=== PATIENT | male | born 1965 | race Caucasian/White ===

== ENCOUNTER 2017-11-19 13:19 | Observation (INO) | payer MEDICARE, SELFPAY ==
[2017-11-19] VITALS (10 sets, daily range): BP systolic 103–128; BP diastolic 50–81; PULSE 70–96; RESP 18–22; TEMP 36.6–36.9; O2SAT 92–98; BMI 32.3
--- NOTE | 2017-11-19 | CA_ITS ---
PROCEDURE: 2-D M-mode and color Doppler study INDICATIONS FOR THE TEST: Chest pain+ COPD Heart Murmur Tobacco Smoking Palpitations+ Fatigue Syncope Edema+ Hypertension+Diabetes Mellitus Rheumatic Fever SOB+[place] Obesity Hyperlipidemia+ Family History HD Additional History afib PATIENT INFORMATION HEIGHT:72 WEIGHT: 238 GENDER: Male B/P: 138/69 2-D/M-MODE INTERPRETATION: 2-D MEASUREMENTS OBSERVED VALUES IN CMS Right Ventricular Dimension (RVDd) 2.5 Interventricular Septum (Thickness)(IVsd) 1.0 Left Ventricular Internal Dimensions(LVIDd) 4.1 Left Ventricular Posterior Wall (Thickness)(LVPWd) 0.9 Aortic Root 3.6 Aortic Cusp Separation 2.3 Left Atrial Dimensions (LAD) 3.9 2D 1. Left atrium is mildly enlarged, left ventricle is normal size, there is mild qualitative concentric left ventricular hypertrophy, visually estimated ejection fraction 45%, there is marked hypokinesis involving the inferobasal and posterobasal wall. 2. The right atrium and right ventricle are normal size and contractility. 3. The aortic valve is minimally thickened and fibrosed. 4. The mitral and tricuspid valve leaflets are minimally thickened. 5. The pulmonic valve is poorly visualized 6. No significant pericardial effusion noted. DOPPLER INTERROGATION: Doppler interrogation of the aortic, mitral and tricuspid valvular presence of moderate mitral and mild tricuspid regurgitation, tricuspid and jet velocity is insufficient for calculation of the right ventricular systolic pressure, diastolic parameters are inconclusive. CONCLUSION: 1. Mildly enlarged left atrium, normal left ventricular size, mild qualitative concentric left ventricular hypertrophy, visually estimated ejection fraction 45% with segmental wall motion abnormality described above. Diastolic parameters are inconclusive. 2. Moderate mitral and mild tricuspid regurgitation 3. No significant pericardial effusion noted.
--- NOTE | 2017-11-19 13:27 | XR_ITS ---
XR chest portable HISTORY: Chest pain ITS.REASON: cp ORDERING PHYSICIAN: Arie Chaudhair MD PATIENT AGE: 52 years COMPARISON: 09/03/2017 FINDINGS: The cardiomediastinal silhouette and pulmonary vascularity are within normal limits. The lungs are clear without infiltrates, suspicious nodules, or pleural effusions. No acute bony abnormalities. IMPRESSION: Negative chest, no acute finding
--- NOTE | 2017-11-19 13:32 | HMH.EDGENADL ---
ED Disposition Clinical Impression: New onset a-fib, Chest pain Disposition: Admitted As Inpatient Condition on Discharge: Good - Critical Care Critical Care Time: No Attestation: On , the high probability of a clinically significant, sudden or life threatening deterioration of the following system(s) required my full and direct attention, intervention and personal management. The time I documented below is in addition to time spent performing reported procedures but includes the following listed in this critical care notation. Medical Decision Making - Medical Records MR Comment: 158 cardiology is seen patient desires Nohemynox. 1449 call is out to PMD for admit Vital Signs: 11/19/17 13:20 11/19/17 13:50 Temperature 97.9 F Temperature Source Oral Pulse Rate [Right Radial] 91 H 95 H Respiratory Rate 20 Blood Pressure [Right Arm] 114/80 117/77 Blood Pressure Mean [Right Arm] 91 90 Blood Pressure Source [Right Arm] Automatic Cuff Automatic Cuff Blood Pressure Position [Right Arm] Sitting Supine 02 Sat by Pulse Oximetry 94 L 94 L Oxygen Delivery Method Room Air - Lab Data Lab Results 11/19/17 13:40: WBC 7.0, RBC 4.71, Hgb 13.5 L, Hct 40.5 L, MCV 86.0, MCH 28.7, MCHC 33.4, RDW 13.1, Plt Count 272, MPV 7.4, Neut % (Auto) 67.7, Lymph % (Auto) 21.8, [place] % (Auto) 6.6, Eos % (Auto) 3.4, Baso % (Auto) 0.3, Neut # (Auto) 4.7, Lymph # (Auto) 1.5, [place] # (Auto) 0.5, Eos # (Auto) 0.2, Baso # (Auto) 0.0 11/19/17 13:40: Sodium 141, Potassium 4.2, Chloride 108 H, Carbon Dioxide 25, Anion Gap 12.2, BUN 28 H, Creatinine 1.92 H, Estimated Creat Clear 67, Estimated GFR 37 L, Est GFR ( Amer) 44 L, Glucose 150 H, Calcium 8.2 L, Total Bilirubin 0.9, AST 18, ALT 45, Alkaline Phosphatase 127 H, Troponin I < 0.02, Total Protein 6.9, Albumin 3.4, Globulin 3.5 H, Albumin/Globulin Ratio 1.0 L 11/19/17 13:40: B-Natriuretic Peptide 107 H Result diagrams: 11/19/17 13:40 11/19/17 13:40 Orders (Tests/Meds): ED MEDICATIONS Discontinued Medications Generic Name Dose Route Start Last Admin Trade Name Lissy PRN Reason Stop Dose Admin Enoxaparin Sodium 110 mg 11/19/17 13:57 11/19/17 14:03 Lovenox 100mg/Ml Syringe SQ 11/19/17 13:58 110 mg ONCE ONE Administration Morphine Sulfate 4 mg 11/19/17 14:47 Morphine 4mg/Ml Syringe IV 11/19/17 14:48 ONCE ONE Ondansetron HCl 4 mg 11/19/17 14:47 Zofran 4mg/2ml Vial IV 11/19/17 14:48 ONCE ONE ORDERS Category Date Time Status CXR --portable [XR chest portable] Stat Exams 11/19/17 13:27 Taken PT/PTT Stat Lab 11/19/17 13:40 Received Prothrombin Time INR Stat Lab 11/19/17 13:40 Received - Radiology Data #1 Image(s): Chest Image Reviewed: Yes I reviewed the patient's radiology image Preliminary Findings: Normal/NAD - ECG Data Tracing #1 ER EKG read by myself shows atrial fibrillation with rapid ventricular response rate of 102, normal axis, no QT prolongation, nonspecific EKG - Oswaldo Inquiry Pt receiving controlled substance: No General Adult HPI - General Chief complaint: Chest Pain Stated complaint: Chest Pain Mode of Arrival: EMS Limitations: No Limitations Description of Symptoms (Recalled from ER Triage Doc. by RN): Chest Pain for a few days. Left side, radiates to shoulder, Pressure. Also endorses SOA, positional weakness and dizziness. - History of Present Illness HPI narrative: Patient states he has had left-sided chest pain pressure 2/10 radiates to left shoulder for the past 2 days on and off salinities feeling irregular heartbeat for the past 2 days states he has dyspnea on exertion over the past 2 days as well as sweating at night he states he has some nausea he denies any fevers denies any leg pain or calf pain or swelling. He denies being on blood thinners he states he has not had an arrhythmia before. - Related Data Home Medications Medication Instructions Recorded Confirmed
--- NOTE | 2017-11-19 13:35 | ED_ITS ---
ED Disposition Clinical Impression: New onset a-fib, Chest pain Disposition: Admitted As Inpatient Condition on Discharge: Good - Critical Care Critical Care Time: No Attestation: On , the high probability of a clinically significant, sudden or life threatening deterioration of the following system(s) required my full and direct attention, intervention and personal management. The time I documented below is in addition to time spent performing reported procedures but includes the following listed in this critical care notation. Medical Decision Making - Medical Records MR Comment: 158 cardiology is seen patient desires Nohemynox. 1449 call is out to PMD for admit Vital Signs: 11/19/17 13:20 11/19/17 13:50 Temperature 97.9 F Temperature Source Oral Pulse Rate [Right Radial] 91 H 95 H Respiratory Rate 20 Blood Pressure [Right Arm] 114/80 117/77 Blood Pressure Mean [Right Arm] 91 90 Blood Pressure Source [Right Arm] Automatic Cuff Automatic Cuff Blood Pressure Position [Right Arm] Sitting Supine 02 Sat by Pulse Oximetry 94 L 94 L Oxygen Delivery Method Room Air - Lab Data Lab Results 11/19/17 13:40: WBC 7.0, RBC 4.71, Hgb 13.5 L, Hct 40.5 L, MCV 86.0, MCH 28.7, MCHC 33.4, RDW 13.1, Plt Count 272, MPV 7.4, Neut % (Auto) 67.7, Lymph % (Auto) 21.8, [place] % (Auto) 6.6, Eos % (Auto) 3.4, Baso % (Auto) 0.3, Neut # (Auto) 4.7 , Lymph # (Auto) 1.5, [place] # (Auto) 0.5, Eos # (Auto) 0.2, Baso # (Auto) 0.0 11/19/17 13:40: Sodium 141, Potassium 4.2, Chloride 108 H, Carbon Dioxide 25, Anion Gap 12.2, BUN 28 H, Creatinine 1.92 H, Estimated Creat Clear 67, Estimated GFR 37 L, Est GFR ( Amer) 44 L, Glucose 150 H, Calcium 8.2 L, Total Bilirubin 0.9, AST 18, ALT 45, Alkaline Phosphatase 127 H, Troponin I < 0.02, Total Protein 6.9, Albumin 3.4, Globulin 3.5 H, Albumin/Globulin Ratio 1.0 L 11/19/17 13:40: B-Natriuretic Peptide 107 H Result diagrams: 11/19/17 13:40 11/19/17 13:40 Orders (Tests/Meds): ED MEDICATIONS Discontinued Medications Generic Name Dose Route Start Last Admin Trade Name Lissy PRN Reason Stop Dose Admin Enoxaparin Sodium 110 mg 11/19/17 13:57 11/19/17 14:03 Lovenox 100mg/Ml Syringe SQ 11/19/17 13:58 110 mg ONCE ONE Administration Morphine Sulfate 4 mg 11/19/17 14:47 Morphine 4mg/Ml Syringe IV 11/19/17 14:48 ONCE ONE Ondansetron HCl 4 mg 11/19/17 14:47 Zofran 4mg/2ml Vial IV 11/19/17 14:48 ONCE ONE ORDERS Category Date Time Status CXR --portable [XR chest portable] Stat Exams 11/19/17 13:27 Taken PT/PTT Stat Lab 11/19/17 13:40 Received Prothrombin Time INR Stat Lab 11/19/17 13:40 Received - Radiology Data #1 Image(s): Chest Image Reviewed: Yes I reviewed the patient's radiology image Preliminary Findings: Normal/NAD - ECG Data Tracing #1 ER EKG read by myself shows atrial fibrillation with rapid ventricular response rate of 102, normal axis, no QT prolongation, nonspecific EKG - Oswaldo Inquiry Pt receiving controlled substance: No General Adult HPI - General Chief complaint: Chest Pain Stated complaint: Chest Pain Mode of Arrival: EMS Limitations: No Limitations Description of Symptoms (Recalled from ER Triage Doc. by RN): Chest Pain for a few days.
[2017-11-19 13:52] LABS: Basophils % 0.3 % (0.1-2.0); Eosinophils # 0.2 K/mm3 (0.0-0.4); Eosinophils % 3.4 % (0.1-12.0); Hematocrit 40.5 % (42.0-52.0); Hemoglobin 13.5 g/dL (14.1-18.0); Lymphocytes # 1.5 K/mm3 (0.7-4.5); Lymphocytes % 21.8 K/mm3 (10-50); Mean Corpuscular HGB Conc 33.4 g/dL (31.8-35.4); Mean Corpuscular Hemoglobin 28.7 pg (27.0-31.2); Mean Platelet Volume 7.4 fl (7.4-10.4); Monocytes # 0.5 K/mm3 (0.1-1.0); Monocytes % 6.6 % (1.7-9.3); Neutrophils # 4.7 K/mm3 (1.8-7.8); Neutrophils % 67.7 % (37.0-80.0); Platelet Count 272 K/mm3 (142-424); Red Blood Count 4.71 M/mm3 (4.60-6.20); Red Cell Distribution Width 13.1 % (11.5-17.5)
[2017-11-19 14:20] LABS: Alanine Aminotransferase 45 U/L (12-78); Albumin Level 3.4 gm/dL (3.4-5.0); Alkaline Phosphatase 127 U/L (46-116); Anion Gap 12.2 mEq/L (5-15); Aspartate Amino Transferase 18 U/L (15-37); Bilirubin,Total 0.9 mg/dL (0.2-1.0); Blood Urea Nitrogen 28 mg/dL (7-18); Calcium 8.2 mg/dL (8.5-10.1); Carbon Dioxide 25 mmol/L (21.0-32.0); Chloride 108 mmol/L (98-107); Creatinine Clearance Estimated 67 mL/min (0-300); Creatinine,Serum 1.92 mg/dL (0.70-1.30); Estimated Glomerular Filt Rate 37 ml/min (>60); GFR (African American) 44 ML/MIN (>60); Globulin 3.5 gm/dl (1.3-3.2); Potassium 4.2 mmoL/L (3.5-5.1); Sodium 141 mmol/L (136-145); Total Protein,Serum 6.9 gm/dL (6.4-8.2); Troponin I < 0.02 ng/ml (0.00-0.06)
[2017-11-19 14:28] LABS: Glucose 150 mg/dL (74-106)
--- NOTE | 2017-11-19 14:45 | HMH.CNCARD ---
History of Present Illness Consult date: 11/19/17 Consult reason: atrial fibrillation Chief complaint: chest pain, SOA History of present illness: 52-year-old white male presented to the emergency department after being seen in his family doctor's office for complaint of 2 days of palpitations and fast heart rates. This has been accompanied by increasing shortness of breath and chest discomfort that is worse with taking a deep breath or moving in certain positions. Patient denies any syncope but has had some lightheadedness. Reportedly was given 500 mL of fluid in the doctor's office due to low blood pressure in the high 80s systolically. Patient is currently in the emergency department in no acute distress but does note that he is not feeling well. His heart rate is around 100 bpm. His EKG shows atrial fibrillation. Initial cardiac enzyme is pending. Of note, patient had a cardiac cath showing normal coronary arteries in September 2016. Cardiology consulted for evaluation and recommendations. [facility] History Medical History: Reports:: Hyperlipidemia, Hypertension, Palpitations Denies:: Diabetes Mellitus Type 2 - *Social History Smoking Status: Former smoker Alcohol Intake: current Alcohol Intake Frequency:: holidays/special occasions only - Psychiatric History Expresses thoughts of harming self/others: None Suicide Plan Description: No Plan Meds Home Medications Medication Instructions Recorded Confirmed Type Aspirin [Aspirin 81mg EC Tab] 81 mg PO DAILY 11/19/17 11/19/17 History Atorvastatin Calcium [Atorvastatin 40 mg PO HS 11/19/17 11/19/17 History 40mg Tab] Cetirizine HCl 10 mg PO DAILY 11/19/17 11/19/17 History Duloxetine HCl [Cymbalta] 60 mg PO DAILY 11/19/17 11/19/17 History Gabapentin [Gabapentin 300mg Cap] 300 mg PO TID 11/19/17 11/19/17 History Icosapent Ethyl [Vascepa] 2 gm PO BID 11/19/17 11/19/17 History Losartan Potassium 100 mg PO DAILY 11/19/17 11/19/17 History Meloxicam 15 mg PO DAILY 11/19/17 11/19/17 History Nadolol 40 mg PO DAILY 11/19/17 11/19/17 History Omeprazole [Omeprazole 20mg 20 mg PO DAILY 11/19/17 11/19/17 History Capsule] Ropinirole HCl 2 mg PO HS 11/19/17 11/19/17 History Tamsulosin HCl [Flomax] 0.4 mg PO DAILY 11/19/17 11/19/17 History Trazodone HCl 200 mg PO HS 11/19/17 11/19/17 History raNITIdine HCl [Ranitidine HCl] 150 mg PO BID 11/19/17 11/19/17 History Allergies Allergy/AdvReac Type Severity Reaction Status Date / Time No Known Allergies Allergy Unverified 09/25/17 15:40 Review of Systems - *Cardiovascular Reports chest pain, Reports shortness of breath, Reports shortness of breath with activity, Reports fast heart rate - *Respiratory Reports shortness of breath, Reports shortness of breath with activity - *Gastrointestinal Denies nausea Exam Vital signs and Labs for Last 24 Hours: Temp Pulse Resp BP Pulse Ox 97.9 F 95 H 20 117/77 94 L 11/19/17 13:20 11/19/17 13:50 11/19/17 13:20 11/19/17 13:50 11/19/17 13:50 Laboratory Results - last 24 hr 11/19/17 13:40: WBC 7.0, RBC 4.71, Hgb 13.5 L, Hct 40.5 L, MCV 86.0, MCH 28.7, MCHC 33.4, RDW 13.1, Plt Count 272, MPV 7.4, Neut % (Auto) 67.7, Lymph % (Auto) 21.8, [place] % (Auto) 6.6, Eos % (Auto) 3.4, Baso % (Auto) 0.3, Neut # (Auto) 4.7, Lymph # (Auto) 1.5, [place] # (Auto) 0.5, Eos # (Auto) 0.2, Baso # (Auto) 0.0 11/19/17 13:40: Sodium 141, Potassium 4.2, Chloride 108 H, Carbon Dioxide 25, Anion Gap 12.2, BUN 28 H, Creatinine 1.92 H, Estimated Creat Clear 67, Estimated GFR 37 L, Est GFR ( Amer) 44 L, Glucose 150 H, Calcium 8.2 L, Total Bilirubin 0.9, AST 18, ALT 45, Alkaline Phosphatase 127 H, Troponin I < 0.02, Total Protein 6.9, Albumin 3.4, Globulin 3.5 H, Albumin/Globulin Ratio 1.0 L 11/19/17 13:40: B-Natriuretic Peptide 107 H I & O for Last 24 hours: Intake & Output 11/17/17 11/18/17 11/19/17 11/20/17 11:59 11:59 11:59 11:59 Weight 238 lb - *Routine Neck Exam Abse
[2017-11-19 14:56] LABS: Activated Partial Thrombo Time 23.2 seconds (23.6-34.0); INR 0.94 (0.9-1.1); Prothrombin Time 10.2 seconds (9.4-11.8)
[2017-11-19 15:47] LABS: Free Thyroxine Index 2.6 ug/dL (5.93-13.13); T4 (Thyroxine) 7.1 ug/dl (4.7-13.3); Triiodothryronine (T3) Uptake 36 % (31-39)
--- NOTE | 2017-11-19 17:11 | PC.NURSE ---
Report given to SOMMER Armas on 2nd Floor.
[2017-11-19 18:17] LABS: POC Glucose,Bedside 111 mg/dL
[2017-11-19 19:34] LABS: Creatine Kinase 66 U/L (39-308); Troponin I < 0.02 ng/ml (0.00-0.06)
[2017-11-19 19:38] LABS: CKMB Relative Index 0.8 U/L (0-4.0); Creatine Kinase MB < 0.5 mg/ml (0.0-3.6)
[2017-11-20] VITALS (22 sets, daily range): BP systolic 92–122; BP diastolic 50–77; PULSE 72–99; RESP 14–20; TEMP 36.4–36.8; O2SAT 91–99
--- NOTE | 2017-11-20 | IR_ITS ---
CARDIAC CATHETERIZATION DATE OF CATHETERIZATION:11/20/2017 1:30 PM PROCEDURES: 1. Left heart catheterization 2. Left ventriculogram 3. Selective coronary angiogram INDICATION FOR TEST: 1. Unstable angina 2. Abnormal echocardiogram Informed consent was obtained prior to the procedure. COMPLICATIONS: None ESTIMATED BLOOD LOSS: Less than 10 ml. TECHNIQUE: One percent lidocaine used to anesthetize the right anterior aspect of the wrist. The right radial artery was accessed via the Seldinger technique. A 6 Wallisian sheath was placed in the right radial artery. 2.5 mg of verapamil, 800 mcg of nitroglycerin and 5000 U Heparin were given through the arterial sheath. The trap catheter was also used to perform left heart catheterization and left ventriculography. At the end of the procedure the patient was transferred to the post-op holding area in stable condition for arterial sheath removal. ANGIOGRAPHIC RESULTS: 1. The left main artery normal 2. The left anterior descending artery normal 3. The circumflex artery normal 4. The right coronary artery dominant normal 5. The ROBERTS ventriculogram reveals normal 65% 6. The left ventricular end-diastolic pressure 10 mmHg IMPRESSION: 1. Normal coronary arteries. 2. Normal ejection fraction 3. Normal left ventricular end-diastolic pressure PLAN: 1. Evaluation noncardiac chest pain
--- NOTE | 2017-11-20 03:41 | PC.NURSE ---
PATIENT HAS BEEN AWAKE FOR MOST OF SHIFT. HE HAS HAD NO C/O CHEST PAIN, HOWEVER HE DID C/O PAIN TO LOWER BACK X1 RATING IT 6/10, FOR WHICH HE RECEIVED PRN PAIN MEDICATION WHICH WAS EFFECTIVE. HE HAS HAD NO DISTRESS OR SOA AND IS ON N/C AT 2LPM PER MD ORDER. PATIENT IS CURRENTLY IN BED WATCHING TV. NO OTHER PROBLEMS NOTED AT THIS TIME. VSS. WILL CONTINUE TO MONITOR. SAFETY MEASURES IN PLACE, CALL LIGHT IN REACH.
[2017-11-20 07:00] LABS: Basophils % 0.6 % (0.1-2.0); Eosinophils # 0.4 K/mm3 (0.0-0.4); Eosinophils % 6.3 % (0.1-12.0); Hematocrit 37.5 % (42.0-52.0); Hemoglobin 12.5 g/dL (14.1-18.0); Lymphocytes # 2.3 K/mm3 (0.7-4.5); Lymphocytes % 39.1 K/mm3 (10-50); Mean Corpuscular HGB Conc 33.2 g/dL (31.8-35.4); Mean Corpuscular Hemoglobin 29.1 pg (27.0-31.2); Mean Corpuscular Volume 87.4 fl (80-94); Mean Platelet Volume 7.9 fl (7.4-10.4); Monocytes # 0.4 K/mm3 (0.1-1.0); Monocytes % 7.6 % (1.7-9.3); Neutrophils # 2.7 K/mm3 (1.8-7.8); Neutrophils % 46.3 % (37.0-80.0); Platelet Count 242 K/mm3 (142-424); Red Blood Count 4.29 M/mm3 (4.60-6.20); Red Cell Distribution Width 13.4 % (11.5-17.5); White Blood Count 5.8 K/mm3 (4.8-10.8)
[2017-11-20 07:06] LABS: Anion Gap 10.4 mEq/L (5-15); Blood Urea Nitrogen 28 mg/dL (7-18); Carbon Dioxide 29 mmol/L (21.0-32.0); Chloride 108 mmol/L (98-107); Creatinine Clearance Estimated 64 mL/min (0-300); Creatinine,Serum 2.02 mg/dL (0.70-1.30); Estimated Glomerular Filt Rate 35 ml/min (>60); GFR (African American) 42 ML/MIN (>60); Glucose 103 mg/dL (74-106); Potassium 4.4 mmoL/L (3.5-5.1); Sodium 143 mmol/L (136-145)
--- NOTE | 2017-11-20 07:31 | P.CONPHA_ITS ---
[facility] Pharmacy VTE Monitoring - Patient Demographics Admission date: 11/19/17 Report Date: 11/20/17 Time: 07:30 Allergies/Adverse Reactions: Patient Allergies No Known Allergies Allergy (Unverified 09/25/17 15:40) Height: 1.83 m Weight: 108.1 kg Patient Problems: Current Active Problems New onset atrial fibrillation (Acute) Tachycardia (Acute) Hypertensive heart disease (Acute) Hyperlipidemia (Acute) New onset a-fib (Acute) Chest pain (Acute) - VTE Risk Labs: VTE Related Lab Results Hgb 12.5 g/dL (14.1-18.0) L 11/20/17 06:40 Hct 37.5 % (42.0-52.0) L 11/20/17 06:40 Plt Count 242 K/mm3 (142-424) 11/20/17 06:40 PT 10.2 seconds (9.4-11.8) 11/19/17 13:40 INR 0.94 (0.9-1.1) 11/19/17 13:40 APTT 23.2 seconds (23.6-34.0) L 11/19/17 13:40 BUN 28 mg/dL (7-18) H 11/20/17 06:40 Creatinine 2.02 mg/dL (0.70-1.30) H 11/20/17 06:40 Estimated Creat Clear 64 mL/min (0-300) 11/20/17 06:40 Was VTE Risk Assessment Performed: Yes VTE Score: 1 VTE Risk Level: Very Low Risk Clinical Trial Participant: No - Prophylaxis VTE Prophylaxis Ordered?: Yes Types of VTE Prophylaxis: TEDS Knee High
--- NOTE | 2017-11-20 09:10 | P.PN_ITS ---
Subjective Date: 11/20/17 Time: 08:30 Principal diagnosis: A. fib Interval history: 52 yo WM in bed in NAD. Chronic left sided chest and back pain due to DDD. Worse with deep breathing or coughing. Some exertional SOA recently but has had a viral type illness over the last month. Echo shows new wall motion abnormalities with LVEF of 45%. Started sotalol last evening for new onset A. fib with history of normal coronaries in 09/2015 and normal LVEF last year. Review of Systems - *Cardiovascular Reports chest pain - *Respiratory Reports shortness of breath with activity Meds Home Medications Medication Instructions Recorded Confirmed Type Aspirin [Aspirin 81mg EC Tab] 81 mg PO DAILY 11/19/17 11/19/17 History Atorvastatin Calcium [Atorvastatin 40 mg PO HS 11/19/17 11/19/17 History 40mg Tab] Cetirizine HCl 10 mg PO DAILY 11/19/17 11/19/17 History Duloxetine HCl [Cymbalta] 60 mg PO DAILY 11/19/17 11/19/17 History Gabapentin [Gabapentin 300mg Cap] 300 mg PO TID 11/19/17 11/19/17 History Icosapent Ethyl [Vascepa] 2 gm PO BID 11/19/17 11/19/17 History Losartan Potassium 100 mg PO DAILY 11/19/17 11/19/17 History Meloxicam 15 mg PO DAILY 11/19/17 11/19/17 History Nadolol 40 mg PO DAILY 11/19/17 11/19/17 History Omeprazole [Omeprazole 20mg 20 mg PO DAILY 11/19/17 11/19/17 History Capsule] Ropinirole HCl 2 mg PO HS 11/19/17 11/19/17 History Tamsulosin HCl [Flomax] 0.4 mg PO DAILY 11/19/17 11/19/17 History Trazodone HCl 200 mg PO HS 11/19/17 11/19/17 History raNITIdine HCl [Ranitidine HCl] 150 mg PO BID 11/19/17 11/19/17 History Sucralfate [Sucralfate 1gm 1 gm PO BID 11/20/17 11/20/17 History Tab] Allergies Allergy/AdvReac Type Severity Reaction Status Date / Time No Known Allergies Allergy Unverified 09/25/17 15:40 Exam Vital signs and Labs for Last 24 Hours: Temp Pulse Resp BP Pulse Ox 97.8 F 83 18 99/67 95 11/20/17 07:44 11/20/17 07:44 11/20/17 07:44 11/20/17 07:44 11/20/17 07:44 Laboratory Results - last 24 hr 11/19/17 17:42: POC Glucose 111 11/19/17 18:45: Total Creatine Kinase 66, CK-MB (CK-2) < 0.5, CK-MB (CK-2) Rel Index 0.8, Troponin I < 0.02 11/20/17 06:40: WBC 5.8, RBC 4.29 L, Hgb 12.5 L, Hct 37.5 L, MCV 87.4, MCH 29.1 , MCHC 33.2, RDW 13.4, Plt Count 242, MPV 7.9, Neut % (Auto) 46.3, Lymph % (Auto ) 39.1, [place] % (Auto) 7.6, Eos % (Auto) 6.3, Baso % (Auto) 0.6, Neut # (Auto) 2.7, Lymph # (Auto) 2.3, [place] # (Auto) 0.4, Eos # (Auto) 0.4, Baso # (Auto) 0.0 11/20/17 06:40: Sodium 143, Potassium 4.4, Chloride 108 H, Carbon Dioxide 29, Anion Gap 10.4, BUN 28 H, Creatinine 2.02 H, Estimated Creat Clear 64, Estimated GFR 35 L, Est GFR ( Amer) 42 L, Glucose 103 D I & O for Last 24 hours: Intake & Output 11/17/17 11/18/17 11/19/17 11/20/17 11:59 11:59 11:59 11:59 Weight 238 lb 5.115 oz - *Routine Respiratory Exam Present: CTA bilaterally - *Routine Cardiovascular Exam Present: RRR Plan - Patient/Caregiver Discharge Instructions Activity: We will proceed with left heart catheterization to evaluate exertional shortness of breath and new wall motion abnormality on echocardiogram with reduced ejection fraction compared with echocardiogram last year. - Follow Up Plan
--- NOTE | 2017-11-20 09:34 | HMH.HP ---
*Admission Date: 11/19/17 *Chief complaint: shortness of breath, palpitaitons and chest pain *History of present illness: 52-year-old white male presented to the emergency department via EMS from PCP office for evaluation of chest pain, shortness of breath and palpitations. EKG showed new atrial fibrillation in the office. States he has had similar episodes over the last month that resolved within a few hours. Blood pressure was low normal with SBP 90. He was having some dizziness, especially with ambulation. Patient reports symptoms increase with ambulation. Chest pain seems to worsen with deep breathing, as well. He reports increase in shortness of breath with exertion over the last few months. Patient had normal LHC 09/2016. Echo 02/21 was unremarkable with EF 55%. Cardiology was consulted who started sotalol and lovenox. Patient was admitted for serial cardiac enzymes and further evaluation. Today, patient reports he continues to have some shortness of breath and left sided chest pain. Echo showed segmental wall motion abnormality and moderate MR with EF 45%. Patient's creatinine is 2.02 this morning which is up from his baseline of 1.5. He has been taking NSAIDs (meloxicam) daily. [facility] History I have reviewed the patient's past medical history: Yes Medical History: Reports:: Hyperlipidemia, Hypertension, Palpitations Denies:: Cancer, Diabetes Mellitus Type 1, Diabetes Mellitus Type 2, MRSA Other Surgeries: Yes: Hernia Repair Amputation: No Fractures: No - *Social History Educational Level: Attended High School Smoking Status: Former smoker Alcohol Intake: current Alcohol Intake Frequency:: holidays/special occasions only Occupational Status: disabled Housing: house Household Members: spouse - Psychiatric History Expresses thoughts of harming self/others: None Suicide Plan Description: No Plan *Family Hx:: Anemia, Cancer, Coronary Artery Disease, Diabetes, Hyperlipidemia, Kidney Disease Review of Systems - Review of Systems Review of systems:: pertinent systems reviewed and negative unless documented below - *Cardiovascular Reports chest pain, Reports shortness of breath with activity, Reports fast heart rate Comments: dizziness Meds Home Medications Medication Instructions Recorded Confirmed Type Aspirin [Aspirin 81mg EC Tab] 81 mg PO DAILY 11/19/17 11/19/17 History Atorvastatin Calcium [Atorvastatin 40 mg PO HS 11/19/17 11/19/17 History 40mg Tab] Cetirizine HCl 10 mg PO DAILY 11/19/17 11/19/17 History Duloxetine HCl [Cymbalta] 60 mg PO DAILY 11/19/17 11/19/17 History Gabapentin [Gabapentin 300mg Cap] 300 mg PO TID 11/19/17 11/19/17 History Icosapent Ethyl [Vascepa] 2 gm PO BID 11/19/17 11/19/17 History Losartan Potassium 100 mg PO DAILY 11/19/17 11/19/17 History Meloxicam 15 mg PO DAILY 11/19/17 11/19/17 History Nadolol 40 mg PO DAILY 11/19/17 11/19/17 History Omeprazole [Omeprazole 20mg 20 mg PO DAILY 11/19/17 11/19/17 History Capsule] Ropinirole HCl 2 mg PO HS 11/19/17 11/19/17 History Tamsulosin HCl [Flomax] 0.4 mg PO DAILY 11/19/17 11/19/17 History Trazodone HCl 200 mg PO HS 11/19/17 11/19/17 History raNITIdine HCl [Ranitidine HCl] 150 mg PO BID 11/19/17 11/19/17 History Sucralfate [Sucralfate 1gm 1 gm PO BID 11/20/17 11/20/17 History Tab] Allergies Allergy/AdvReac Type Severity Reaction Status Date / Time No Known Allergies Allergy Unverified 09/25/17 15:40 Exam Vital signs and Labs for Last 24 Hours: Temp Pulse Resp BP Pulse Ox 97.8 F 83 18 99/67 95 11/20/17 07:44 11/20/17 07:44 11/20/17 07:44 11/20/17 07:44 11/20/17 07:44 Laboratory Results - last 24 hr 11/19/17 17:42: POC Glucose 111 11/19/17 18:45: Total Creatine Kinase 66, CK-MB (CK-2) < 0.5, CK-MB (CK-2) Rel Index 0.8, Troponin I < 0.02 11/20/17 06:40: WBC 5.8, RBC 4.29 L, Hgb 12.5 L, Hct 37.5 L, MCV 87.4, MCH 29.1, MCHC 33.2, RDW 13.4, Plt Count 242, MPV 7.9, Neut % (Auto) 46.3, [place]
--- NOTE | 2017-11-20 09:44 | P.HP_ITS ---
*Admission Date: 11/19/17 *Chief complaint: shortness of breath, palpitaitons and chest pain *History of present illness: 52-year-old white male presented to the emergency department via EMS from PCP office for evaluation of chest pain, shortness of breath and palpitations. EKG showed new atrial fibrillation in the office. States he has had similar episodes over the last month that resolved within a few hours. Blood pressure was low normal with SBP 90. He was having some dizziness, especially with ambulation. Patient reports symptoms increase with ambulation. Chest pain seems to worsen with deep breathing, as well. He reports increase in shortness of breath with exertion over the last few months. Patient had normal LHC 2015. Echo 02/21 was unremarkable with EF 55%. Cardiology was consulted who started sotalol and lovenox. Patient was admitted for serial cardiac enzymes and further evaluation. Today, patient reports he continues to have some shortness of breath and left sided chest pain. Echo showed segmental wall motion abnormality and moderate MR with EF 45%. Patient's creatinine is 2.02 this morning which is up from his baseline of 1.5. He has been taking NSAIDs (meloxicam) daily. [facility] History I have reviewed the patient's past medical history: Yes Medical History: Reports:: Hyperlipidemia, Hypertension, Palpitations Denies:: Cancer, Diabetes Mellitus Type 1, Diabetes Mellitus Type 2, MRSA Other Surgeries: Yes: Hernia Repair Amputation: No Fractures: No - *Social History Educational Level: Attended High School Smoking Status: Former smoker Alcohol Intake: current Alcohol Intake Frequency:: holidays/special occasions only Occupational Status: disabled Housing: house Household Members: spouse - Psychiatric History Expresses thoughts of harming self/others: None Suicide Plan Description: No Plan *Family Hx:: Anemia, Cancer, Coronary Artery Disease, Diabetes, Hyperlipidemia, Kidney Disease Review of Systems - Review of Systems Review of systems:: pertinent systems reviewed and negative unless documented below - *Cardiovascular Reports chest pain, Reports shortness of breath with activity, Reports fast heart rate Comments: dizziness Meds Home Medications Medication Instructions Recorded Confirmed Type Aspirin [Aspirin 81mg EC Tab] 81 mg PO DAILY 11/19/17 11/19/17 History Atorvastatin Calcium [Atorvastatin 40 mg PO HS 11/19/17 11/19/17 History 40mg Tab] Cetirizine HCl 10 mg PO DAILY 11/19/17 11/19/17 History Duloxetine HCl [Cymbalta] 60 mg PO DAILY 11/19/17 11/19/17 History Gabapentin [Gabapentin 300mg Cap] 300 mg PO TID 11/19/17 11/19/17 History Icosapent Ethyl [Vascepa] 2 gm PO BID 11/19/17 11/19/17 History Losartan Potassium 100 mg PO DAILY 11/19/17 11/19/17 History Meloxicam 15 mg PO DAILY 11/19/17 11/19/17 History Nadolol 40 mg PO DAILY 11/19/17 11/19/17 History Omeprazole [Omeprazole 20mg 20 mg PO DAILY 11/19/17 11/19/17 History Capsule] Ropinirole HCl 2 mg PO HS 11/19/17 11/19/17 History Tamsulosin HCl [Flomax] 0.4 mg PO DAILY 11/19/17 11/19/17 History Trazodone HCl 200 mg PO HS 11/19/17 11/19/17 History raNITIdine HCl [Ranitidine HCl] 150 mg PO BID 11/19/17 11/19/17 History Sucralfate [Sucralfate 1gm 1 gm PO BID 11/20/17 11/20/17 History Tab] Allergies Allergy/AdvReac Type Severity Reaction Status Date / Time No Known Allergies Allergy Unverified 09/25/17 15:40 Exam Vital s
--- NOTE | 2017-11-20 10:24 | P.CONCA_ITS ---
History of Present Illness Consult date: 11/19/17 Consult reason: atrial fibrillation Chief complaint: chest pain, SOA History of present illness: 52-year-old white male presented to the emergency department after being seen in his family doctor's office for complaint of 2 days of palpitations and fast heart rates. This has been accompanied by increasing shortness of breath and chest discomfort that is worse with taking a deep breath or moving in certain positions. Patient denies any syncope but has had some lightheadedness. Reportedly was given 500 mL of fluid in the doctor's office due to low blood pressure in the high 80s systolically. Patient is currently in the emergency department in no acute distress but does note that he is not feeling well. His heart rate is around 100 bpm. His EKG shows atrial fibrillation. Initial cardiac enzyme is pending. Of note, patient had a cardiac cath showing normal coronary arteries in September 2016. Cardiology consulted for evaluation and recommendations. [facility] History Medical History: Reports:: Hyperlipidemia, Hypertension, Palpitations Denies:: Diabetes Mellitus Type 2 - *Social History Smoking Status: Former smoker Alcohol Intake: current Alcohol Intake Frequency:: holidays/special occasions only - Psychiatric History Expresses thoughts of harming self/others: None Suicide Plan Description: No Plan Meds Home Medications Medication Instructions Recorded Confirmed Type Aspirin [Aspirin 81mg EC Tab] 81 mg PO DAILY 11/19/17 11/19/17 History Atorvastatin Calcium [Atorvastatin 40 mg PO HS 11/19/17 11/19/17 History 40mg Tab] Cetirizine HCl 10 mg PO DAILY 11/19/17 11/19/17 History Duloxetine HCl [Cymbalta] 60 mg PO DAILY 11/19/17 11/19/17 History Gabapentin [Gabapentin 300mg Cap] 300 mg PO TID 11/19/17 11/19/17 History Icosapent Ethyl [Vascepa] 2 gm PO BID 11/19/17 11/19/17 History Losartan Potassium 100 mg PO DAILY 11/19/17 11/19/17 History Meloxicam 15 mg PO DAILY 11/19/17 11/19/17 History Nadolol 40 mg PO DAILY 11/19/17 11/19/17 History Omeprazole [Omeprazole 20mg 20 mg PO DAILY 11/19/17 11/19/17 History Capsule] Ropinirole HCl 2 mg PO HS 11/19/17 11/19/17 History Tamsulosin HCl [Flomax] 0.4 mg PO DAILY 11/19/17 11/19/17 History Trazodone HCl 200 mg PO HS 11/19/17 11/19/17 History raNITIdine HCl [Ranitidine HCl] 150 mg PO BID 11/19/17 11/19/17 History Allergies Allergy/AdvReac Type Severity Reaction Status Date / Time No Known Allergies Allergy Unverified 09/25/17 15:40 Review of Systems - *Cardiovascular Reports chest pain, Reports shortness of breath, Reports shortness of breath with activity, Reports fast heart rate - *Respiratory Reports shortness of breath, Reports shortness of breath with activity - *Gastrointestinal Denies nausea Exam Vital signs and Labs for Last 24 Hours: Temp Pulse Resp BP Pulse Ox 97.9 F 95 H 20 117/77 94 L 11/19/17 13:20 11/19/17 13:50 11/19/17 13:20 11/19/17 13:50 11/19/17 13:50 Laboratory Results - last 24 hr 11/19/17 13:40: WBC 7.0, RBC 4.71, Hgb 13.5 L, Hct 40.5 L, MCV 86.0, MCH 28.7, MCHC 33.4, RDW 13.1, Plt Count 272, MPV 7.4, Neut % (Auto) 67.7, Lymph % (Auto) 21.8, Knox % (Auto) 6.6, Eos % (Auto) 3.4, Baso % (Auto) 0.3, Neut # (Auto) 4.7 , Lymph # (Auto) 1.5, Knox # (Auto) 0.5, Eos # (Auto) 0.2, Baso # (Auto) 0.0 11/19/17 13:40: Sodium 141, Potassium 4.2, Chloride 108 H, Ca
--- NOTE | 2017-11-20 12:32 | PC.NURSE ---
pt off floor for procedure
--- NOTE | 2017-11-20 15:09 | PC.NURSE ---
pt back to floor from slab tripper
--- NOTE | 2017-11-20 18:06 | PC.NURSE ---
2ml's of air removed as follows: 1345 - 10mls 1400 - 8 mls 1415 - 6 mls 1430 - 4 mls 1445 - 2 mls 1500 - 0 ml's 1515 - tracelet removed; telfa and tegaderm in place; no drainage or hematoma at site. Pt reeducated on post heart cath instructions. Pt verbalizes understanding. Pedal pulses +2, cap refill <3 sec. Lungs clear, bowel sounds active. No complaints at this time. Will continue to monitor.
--- NOTE | 2017-11-20 18:59 | PC.NURSE ---
report given to liam avery rn
[2017-11-21] VITALS: BP 85/45; PULSE 101; PULSE 86; RESP 18; TEMP 36.4; O2SAT 93
[2017-11-21 03:01] VITALS: O2SAT 89
--- NOTE | 2017-11-21 03:46 | PC.NURSE ---
PATIENT HAS RESTED WELL THIS SHIFT. HE C/O A HEADACHE AND SOME MILD CHEST PAIN X1 AND RECEIVED PRN PAIN MEDICATION WHICH SEEMED TO HELP. PATIENT HAD BEEN ON ROOM AIR WITH OXYGEN SATURATION IN MID 90'S, HOWEVER PATIENT INSISTED ON WEARING OXYGEN WHILE ASLEEP (1 LPM), STATING THAT IT HELPED HIM TO SLEEP BETTER. HE DID C/O SOME MILD SOA ON EXERTION WITH NO DISTRESS NOTED. PATIENT CURRENTLY IN BED SLEEPING. NO OTHER PROBLEMS NOTED AT THIS TIME. VSS. WILL CONTINUE TO MONITOR. SAFETY MEASURES IN PLACE, CALL LIGHT IN REACH.
[2017-11-21 04:00] VITALS: BP 91/47; PULSE 103; PULSE 86; PULSE 92; RESP 18; TEMP 36.4; O2SAT 98
[2017-11-21 07:13] LABS: Blood Urea Nitrogen 21 mg/dL (7-18); Carbon Dioxide 32 mmol/L (21.0-32.0); Chloride 108 mmol/L (98-107); Creatinine Clearance Estimated 75 mL/min (0-300); Creatinine,Serum 1.73 mg/dL (0.70-1.30); Estimated Glomerular Filt Rate 41 ml/min (>60); GFR (African American) 50 ML/MIN (>60); Glucose 104 mg/dL (74-106); Sodium 143 mmol/L (136-145)
[2017-11-21 07:40] VITALS: BP 123/77; PULSE 90; RESP 18; TEMP 36.5; O2SAT 98
--- NOTE | 2017-11-21 07:52 | HMH.DCSUM ---
General - General Admission date: 11/19/17 Discharge date: 11/21/17 HPI HPI: 52-year-old white male presented to the emergency department via EMS from PCP office for evaluation of chest pain, shortness of breath and palpitations. EKG showed new atrial fibrillation in the office. States he has had similar episodes over the last month that resolved within a few hours. Blood pressure was low normal with SBP 90. He was having some dizziness, especially with ambulation. Patient reports symptoms increase with ambulation. Chest pain seems to worsen with deep breathing, as well. He reports increase in shortness of breath with exertion over the last few months. Patient had normal LHC 09/2016. Echo 02/21 was unremarkable with EF 55%. Cardiology was consulted who started sotalol and lovenox. Patient was admitted for serial cardiac enzymes and further evaluation. Today, patient reports he continues to have some shortness of breath and left sided chest pain. Echo showed segmental wall motion abnormality and moderate MR with EF 45%. Patient's creatinine is 2.02 this morning which is up from his baseline of 1.5. He has been taking NSAIDs (meloxicam) daily. Objective Vital signs: Temp Pulse Resp BP Pulse Ox 97.7 F 90 18 123/77 98 11/21/17 07:40 11/21/17 07:40 11/21/17 07:40 11/21/17 07:40 11/21/17 07:40 Narrative: This morning patient is comfortable, heart rate irregular but rate controlled, abdomen soft, no edema noted. Alert, oriented ?3, lungs clear. Hospital Course Hospital Course: Patient was admitted, found to be in atrial fibrillation. Heart catheterization done revealing ejection fraction in the mid 40s, no evidence of ischemic blockage, and medical therapy was recommended with sotalol and aspirin therapy given his low chads score. He was watched overnight because of the institution of sotalol had no QT issues, and was discharged this morning on sotalol, aspirin therapy with short follow-up in my office. Results Labs on day of discharge: Labs from last 24 hours 11/21/17 06:45 Sodium 143 Potassium 5.0 Chloride 108 H Carbon Dioxide 32 Anion Gap 8.0 BUN 21 H Creatinine 1.73 H Estimated Creat Clear 75 Estimated GFR 41 L Est GFR ( Amer) 50 L Glucose 104 DS: Diagnosis - Discharge Diagnosis (1) Chest pain Status: Acute (2) Hyperlipidemia Status: Acute (3) Hypertensive heart disease Status: Acute (4) New onset a-fib Status: Acute (5) New onset atrial fibrillation Status: Acute (6) Shortness of breath on exertion Status: Acute (7) Tachycardia Status: Acute Discharge Plan - Patient Discharge Instructions ACTIVITY: Continue current activity DIET: cardiac - Follow up Plan Follow up with: Nathalie Alicea APRN [Nurse Practitioner] - Disposition: Home, Self-Residential Medications: Home Medications Medication Instructions Recorded Confirmed Type Aspirin [Aspirin 81mg EC Tab] 81 mg PO DAILY 11/19/17 11/19/17 History Atorvastatin Calcium [Atorvastatin 40 mg PO HS 11/19/17 11/19/17 History 40mg Tab] Cetirizine HCl 10 mg PO DAILY 11/19/17 11/19/17 History Duloxetine HCl [Cymbalta] 60 mg PO DAILY 11/19/17 11/19/17 History Gabapentin [Gabapentin 300mg Cap] 300 mg PO TID 11/19/17 11/19/17 History Icosapent Ethyl [Vascepa] 2 gm PO BID 11/19/17 11/19/17 History Losartan Potassium 100 mg PO DAILY 11/19/17 11/19/17 History Meloxicam 15 mg PO DAILY 11/19/17 11/19/17 History Nadolol 40 mg PO DAILY 11/19/17 11/19/17 History Omeprazole [Omeprazole 20mg 20 mg PO DAILY 11/19/17 11/19/17 History Capsule] Ropinirole HCl 2 mg PO HS 11/19/17 11/19/17 History Tamsulosin HCl [Flomax] 0.4 mg PO DAILY 11/19/17 11/19/17 History Trazodone HCl 200 mg PO HS 11/19/17 11/19/17 History raNITIdine HCl [Ranitidine HCl] 150 mg PO BID 11/19/17 11/19/17 History Sucralfate [Sucralfate 1gm 1 gm PO BID 11/20/17 11/20/17 History Tab
--- NOTE | 2017-11-21 07:59 | P.DS_ITS ---
General - General Admission date: 11/19/17 Discharge date: 11/21/17 HPI HPI: 52-year-old white male presented to the emergency department via EMS from PCP office for evaluation of chest pain, shortness of breath and palpitations. EKG showed new atrial fibrillation in the office. States he has had similar episodes over the last month that resolved within a few hours. Blood pressure was low normal with SBP 90. He was having some dizziness, especially with ambulation. Patient reports symptoms increase with ambulation. Chest pain seems to worsen with deep breathing, as well. He reports increase in shortness of breath with exertion over the last few months. Patient had normal LHC 2015. Echo 02/21 was unremarkable with EF 55%. Cardiology was consulted who started sotalol and lovenox. Patient was admitted for serial cardiac enzymes and further evaluation. Today, patient reports he continues to have some shortness of breath and left sided chest pain. Echo showed segmental wall motion abnormality and moderate MR with EF 45%. Patient's creatinine is 2.02 this morning which is up from his baseline of 1.5. He has been taking NSAIDs (meloxicam) daily. Objective Vital signs: Temp Pulse Resp BP Pulse Ox 97.7 F 90 18 123/77 98 11/21/17 07:40 11/21/17 07:40 11/21/17 07:40 11/21/17 07:40 11/21/17 07:40 Narrative: This morning patient is comfortable, heart rate irregular but rate controlled, abdomen soft, no edema noted. Alert, oriented ?3, lungs clear. Hospital Course Hospital Course: Patient was admitted, found to be in atrial fibrillation. Heart catheterization done revealing ejection fraction in the mid 40s, no evidence of ischemic blockage, and medical therapy was recommended with sotalol and aspirin therapy given his low chads score. He was watched overnight because of the institution of sotalol had no QT issues , and was discharged this morning on sotalol, aspirin therapy with short follow- up in my office. Results Labs on day of discharge: Labs from last 24 hours 11/21/17 06:45 Sodium 143 Potassium 5.0 Chloride 108 H Carbon Dioxide 32 Anion Gap 8.0 BUN 21 H Creatinine 1.73 H Estimated Creat Clear 75 Estimated GFR 41 L Est GFR ( Amer) 50 L Glucose 104 DS: Diagnosis - Discharge Diagnosis (1) Chest pain Status: Acute (2) Hyperlipidemia Status: Acute (3) Hypertensive heart disease Status: Acute (4) New onset a-fib Status: Acute (5) New onset atrial fibrillation Status: Acute (6) Shortness of breath on exertion Status: Acute (7) Tachycardia Status: Acute Discharge Plan - Patient Discharge Instructions ACTIVITY: Continue current activity DIET: cardiac - Follow up Plan Follow up with: Nathalie Alicea APRN [Nurse Practitioner] - Disposition: Home, Self-Snf Medications: Home Medications Medication Instructions Recorded Confirmed Type Aspirin [Aspirin 81mg EC Tab] 81 mg PO DAILY 11/19/17 11/19/17 History Atorvastatin Calcium [Atorvastatin 40 mg PO HS 11/19/17 11/19/17 History 40mg Tab] Cetirizine HCl 10 mg PO DAILY 11/19/17 11/19/17 History Duloxetine HCl [Cymbalta] 60 mg PO DAILY 11/19/17 11/19/17 History Gabapentin [Gabapentin 300mg Cap] 300 mg PO TID 11/19/1711/19
[2017-11-21 08:00] VITALS: PULSE 90
== END 2017-11-21 10:26 | disposition home or self-care (01) ==
LOC: ER 14:48 → 2ND 17:10
PROVIDERS: Internal Medicine; Physician Assistant; Admitting Provider Emergency Medicine; Emergency Provider Emergency Medicine; PCP Internal Medicine Adolescent Medicine; Visit Provider Internal Medicine Adolescent Medicine
DX: I48.91 Unspecified atrial fibrillation (principal); I25.110 Atherosclerotic heart disease of native coronary artery with unstable angina pectoris; R06.02 Shortness of breath; R06.09 Other forms of dyspnea; R07.9 Chest pain, unspecified; E78.5 Hyperlipidemia, unspecified; I11.9 Hypertensive heart disease without heart failure
CPT/HCPCS: 36415; 71045; 80048; 80053; 82550; 82553; 82962; 83880; 84436; 84443; 84479; 84484; 85025; 85610; 85730; 93005; 93041; 93306; 93458; 94760; 94761; 99152; 99284; C1725; C1769; G0378; J1644; J2405; Q9967

== ENCOUNTER → 2017-12-20 20:04 | Outpatient (CLI) | payer MEDICARE, SELFPAY | PROVIDERS: PCP Internal Medicine Adolescent Medicine; Visit Provider Internal Medicine Adolescent Medicine | DX: G47.33 Obstructive sleep apnea (adult) (pediatric) (principal); G47.30 Sleep apnea, unspecified; I10 Essential (primary) hypertension; R06.83 Snoring; E66.9 Obesity, unspecified | CPT/HCPCS: 95810 ==

== ENCOUNTER 2017-12-28 07:09 | Day surgery (SDC) | payer MEDICARE, SELFPAY ==
[2017-12-28 07:25] VITALS: BMI 32.9
[2017-12-28 07:54] VITALS: PULSE 71
[2017-12-28 07:55] VITALS: BP 161/98; PULSE 71; RESP 20; O2SAT 92
[2017-12-28 08:54] VITALS: BP 161/98; PULSE 71; RESP 20; O2SAT 92
--- NOTE | 2017-12-28 11:27 | HMH.LOOP ---
[facility] Loop Recorder Date: 12/28/17 Time: 08:15 Procedure Performed:: Implantation of loop recorder Indication:: Isolated episode of Atrial Fibrillation with CHADS score of 1 Technique:: Patient was brought to the cardiac Optical Effects Camera Operator. After informed consent obtained, 1% lidocaine with epinephrine was used to anesthetize the site along the left anterior aspect of the chest near the sternal border. Using the preformed scalpel, an incision was made and using the supplied preloaded apparatus, the loop recorder was placed subcutaneously without difficulty. Following the deployment of the loop recorder interrogation of the device was performed to ensure appropriate voltage was being detected (0.37). Once this was verified, Steri-Strips were placed over the incision and the patient was prepped to discharge home. Patient tolerated the procedure well with minimal discomfort. Impression:: Successful Implantation of loop recorder Serial Number:: [id number] Plan:: Routine post op care
--- NOTE | 2017-12-28 11:30 | P.PCN_ITS ---
[facility] Loop Recorder Date: 12/28/17 Time: 08:15 Procedure Performed:: Implantation of loop recorder Indication:: Isolated episode of Atrial Fibrillation with CHADS score of 1 Technique:: Patient was brought to the cardiac Five Roll Refiner Batch Mixer. After informed consent obtained, 1 % lidocaine with epinephrine was used to anesthetize the site along the left anterior aspect of the chest near the sternal border. Using the preformed scalpel, an incision was made and using the supplied preloaded apparatus, the loop recorder was placed subcutaneously without difficulty. Following the deployment of the loop recorder interrogation of the device was performed to ensure appropriate voltage was being detected (0.37). Once this was verified, Steri-Strips were placed over the incision and the patient was prepped to discharge home. Patient tolerated the procedure well with minimal discomfort. Impression:: Successful Implantation of loop recorder Serial Number:: [id number] Plan:: Routine post op care
== END 2017-12-28 10:00 | disposition home or self-care (01) ==
LOC: CATHLAB 07:11
PROVIDERS: PCP Internal Medicine Adolescent Medicine; Visit Provider Internal Medicine
DX: I48.1 Persistent atrial fibrillation (principal); I11.9 Hypertensive heart disease without heart failure; R06.09 Other forms of dyspnea; R78.4 Finding of other drugs of addictive potential in blood; Z79.899 Other long term (current) drug therapy; Z87.891 Personal history of nicotine dependence; Z82.49 Family history of ischemic heart disease and other diseases of the circulatory system
CPT/HCPCS: 33282

== ENCOUNTER → 2018-02-01 14:08 | Outpatient (CLI) | payer MEDICARE, SELFPAY ==
[2018-02-01 15:38] LABS: Anion Gap 15.7 mEq/L (5-15); Blood Urea Nitrogen 24 mg/dL (7-18); Carbon Dioxide 26 mmol/L (21.0-32.0); Chloride 106 mmol/L (98-107); Creatinine,Serum 1.99 mg/dL (0.70-1.30); Estimated Glomerular Filt Rate 35 ml/min (>60); GFR (African American) 43 ML/MIN (>60); Glucose 81 mg/dL (74-106); Potassium 4.7 mmoL/L (3.5-5.1); Sodium 143 mmol/L (136-145)
== END ==
PROVIDERS: PCP Internal Medicine Adolescent Medicine; Visit Provider Physician Assistant
DX: N18.3 Chronic kidney disease, stage 3 (moderate) (principal)
CPT/HCPCS: 36415; 80048

== ENCOUNTER → 2018-02-26 12:42 | Outpatient (CLI) | payer MEDICARE, SELFPAY ==
[2018-02-26 14:18] LABS: Anion Gap 12.2 mEq/L (5-15); Blood Urea Nitrogen 25 mg/dL (7-18); Carbon Dioxide 29 mmol/L (21.0-32.0); Chloride 106 mmol/L (98-107); Creatinine,Serum 1.79 mg/dL (0.70-1.30); Estimated Glomerular Filt Rate 40 ml/min (>60); GFR (African American) 48 ML/MIN (>60); Glucose 96 mg/dL (74-106); Potassium 5.2 mmoL/L (3.5-5.1); Sodium 142 mmol/L (136-145)
== END ==
PROVIDERS: PCP Internal Medicine Adolescent Medicine; Visit Provider Internal Medicine Cardiovascular Disease
DX: N18.3 Chronic kidney disease, stage 3 (moderate) (principal); E78.5 Hyperlipidemia, unspecified; R07.9 Chest pain, unspecified; R06.02 Shortness of breath
CPT/HCPCS: 36415; 80048

== ENCOUNTER → 2018-03-07 12:54 | Outpatient (CLI) | payer MEDICARE, SELFPAY ==
--- NOTE | 2018-03-07 15:32 | MR_ITS ---
MR lumbar spine wo con MR 3-d myelogram, HISTORY: Low back pain with bilateral hip and leg pain with numbness and tingling frequent urination. Compression fracture of L1 ITS.REASON: CLOSED COMPRESSION FX, LUMBAGO ORDERING PHYSICIAN: Nathalie Alicea PATIENT AGE: 52 years COMPARISON: CT scan of 02/12/2018 and MRI of 07/31/2016 TECHNIQUE: Standard multiplanar multiecho sequences are performed without contrast. 3-D MIP and myelographic images are also rendered and reviewed FINDINGS: The spinal cord ends at the L1 level. There is a burst type fracture involving the L1 vertebral body with loss of height centrally and anteriorly. This has progressed compared to the previous study of 02/12/2018. There is mild retropulsion of the posterior superior aspect of the vertebral body by approximately 7 mm. There is loss of height centrally of greater than 50% of loss of height anteriorly of approximately 50%. There is no compression upon the cord or cauda equina. There is some mild narrowing of the canal secondary to the retropulsion. This has slightly increased when compared to the previous study now have a posterior, and convex border previously having a posterior concave border on the CT scan. L2-L5 have an unremarkable appearance. L5-S1: Degenerative disc disease with mild bulging disc and minimal broad-based central disc protrusion without impingement. IMPRESSION: 1. Burst fracture of L1 with increased compression changes compared to 02/12/2018 CT scan with slight increase in retropulsion of the posterior superior aspect of the vertebral body without impingement upon the cord or cauda equina 2. Degenerative disc disease with bulging disc and minimal broad-based central disc protrusion at L5-S1
== END ==
PROVIDERS: PCP Internal Medicine Adolescent Medicine; Visit Provider Nurse Practitioner Family
DX: M54.42 Lumbago with sciatica, left side (principal); M54.41 Lumbago with sciatica, right side; S32.010S Wedge compression fracture of first lumbar vertebra, sequela
CPT/HCPCS: 72148; 76376

== ENCOUNTER → 2018-03-12 10:31 | Outpatient (POV) | payer MEDICARE, SELFPAY ==
[2018-03-12 10:35] VITALS: BP 114/78; PULSE 67; RESP 18; O2SAT 98; BMI 31.8
[2018-03-12 11:00] VITALS: BP 114/78; PULSE 85; RESP 18; O2SAT 99
--- NOTE | 2018-03-12 11:03 | HMH.PMCON ---
Assessment and Plan (1) Compression fracture Current visit: Yes Status: Chronic Category: Medical - Assessment and plan all Dx Assessment and Plan for all problems:: We will provide the patient with a lumbar back brace today. Patient is asking me about a Lortab prescription. I told him we do not typically take over medications. Patient's PCP is free to call me and we can discuss medication management. If we do take over his medicine it will be on a temporary basis. We will schedule a DEXA scan for the patient to determine if he has osteoporosis or osteopenia. If he does we will proceed with a kyphoplasty. If not we will have him return to the office to discuss epidural injections. We will follow-up with patient at that time. This note was dictated using voice recognition software and may contain errors or omissions HPI - Data of Consult Consult date: 03/12/18 Requesting Physician: Tabitha Silva APRN Primary Care Provider: Tye Medina MD Family Provider: Referral Provider, MD - Consult Narrative Reason for consult: Compression fracture History of present illness: Mr. Uribe is a 52 year old male who presents today for consultation in regards to an L1 compression fracture. Patient had recent MRI showing an L1 compression change. Patient states that this happened 3 weeks ago. Patient is having quite a bit of pain. Patient rates his pain an 8 out of 10 today. Patient has not had any bracing. Patient and I discussed a DEXA scan and bracing to help determining our plan of care. Patient and I also discussed potential kyphoplasty. CC: Tabitha Silva APRN [facility] History I have reviewed the patient's past medical history: Yes Medical History: Reports:: Hyperlipidemia, Hypertension, Palpitations Denies:: Cancer, Diabetes Mellitus Type 1, Diabetes Mellitus Type 2, MRSA, Seizures Other Medical History: Denies: Blood Transfusion Reaction Other Surgeries: Yes: Cardiac Catheterization, EGD, Hernia Repair, Other (loop insertion) Amputation: No Fractures: No - *Social History Smoking Status: Never smoker Alcohol Intake: current Alcohol Intake Frequency:: holidays/special occasions only Occupational Status: employed, disabled Housing: house Household Members: spouse *Family Hx:: Anemia, Cancer, Coronary Artery Disease, Diabetes, Hyperlipidemia, Kidney Disease Review of Systems - Review of Systems ROS General: no recent weight change, no fever, no sleep disturbances Respiratory: no cough, no shortness of air, no recurring pulmonary infections Cardiovascular/Peripheral Vascular: No chest pain, No palpitations, no edema, no shortness of breath. Gastrointestinal: no incontinence, normal bowel movements reported Genitourinary: no incontinence Musculoskeletal: Back pain Psychiatric: normal mood/ affect Neurological: [denies weakness in extremities], [denies balance issues] Meds Home Medications Medication Instructions Recorded Confirmed Type Atorvastatin Calcium [Atorvastatin 40 mg PO HS 11/19/17 02/12/18 History 40mg Tab] Cetirizine HCl 10 mg PO DAILY 11/19/17 02/12/18 History Duloxetine HCl [Cymbalta] 60 mg PO DAILY 11/19/17 02/12/18 History Gabapentin [Gabapentin 300mg Cap] 300 mg PO TID 11/19/17 02/12/18 History Icosapent Ethyl [Vascepa] 2 gm PO BID 11/19/17 02/12/18 History Meloxicam 15 mg PO DAILY 11/19/17 02/12/18 History Omeprazole [Omeprazole 20mg 20 mg PO DAILY 11/19/17 02/12/18 History Capsule] Ropinirole HCl 2 mg PO HS 11/19/17 02/12/18 History Tamsulosin HCl [Flomax] 0.4 mg PO DAILY 11/19/17 02/12/18 History Trazodone HCl 200 mg PO HS 11/19/17 02/12/18 History raNITIdine HCl [Ranitidine HCl] 150 mg PO BID 11/19/17 02/12/18 History Sucralfate [Sucralfate 1gm 1 gm PO BID 11/20/17 02/12/18 History Tab] aspirin 81 mg tablet,delayed 81 mg PO ONCE 01/08/18 02/12/18 History release Apixaban [Eliquis] 5 mg PO BID 02/12/18 02/12/18 History Metoprolol Ta
--- NOTE | 2018-03-12 11:06 | P.CONS_ITS ---
Assessment and Plan (1) Compression fracture Current visit: Yes Status: Chronic Category: Medical - Assessment and plan all Dx Assessment and Plan for all problems:: We will provide the patient with a lumbar back brace today. Patient is asking me about a Lortab prescription. I told him we do not typically take over medications. Patient's PCP is free to call me and we can discuss medication management. If we do take over his medicine it will be on a temporary basis. We will schedule a DEXA scan for the patient to determine if he has osteoporosis or osteopenia. If he does we will proceed with a kyphoplasty. If not we will have him return to the office to discuss epidural injections. We will follow-up with patient at that time. This note was dictated using voice recognition software and may contain errors or omissions HPI - Data of Consult Consult date: 03/12/18 Requesting Physician: Tabitha Silva APRN Primary Care Provider: Tye Medina MD Family Provider: Referral Provider, MD - Consult Narrative Reason for consult: Compression fracture History of present illness: Mr. Uribe is a 52 year old male who presents today for consultation in regards to an L1 compression fracture. Patient had recent MRI showing an L1 compression change. Patient states that this happened 3 weeks ago. Patient is having quite a bit of pain. Patient rates his pain an 8 out of 10 today. Patient has not had any bracing. Patient and I discussed a DEXA scan and bracing to help determining our plan of care. Patient and I also discussed potential kyphoplasty. CC: Tabitha Silva APRN [facility] History I have reviewed the patient's past medical history: Yes Medical History: Reports:: Hyperlipidemia, Hypertension, Palpitations Denies:: Cancer, Diabetes Mellitus Type 1, Diabetes Mellitus Type 2, MRSA, Seizures Other Medical History: Denies: Blood Transfusion Reaction Other Surgeries: Yes: Cardiac Catheterization, EGD, Hernia Repair, Other (loop insertion) Amputation: No Fractures: No - *Social History Smoking Status: Never smoker Alcohol Intake: current Alcohol Intake Frequency:: holidays/special occasions only Occupational Status: employed, disabled Housing: house Household Members: spouse *Family Hx:: Anemia, Cancer, Coronary Artery Disease, Diabetes, Hyperlipidemia, Kidney Disease Review of Systems - Review of Systems ROS General: no recent weight change, no fever, no sleep disturbances Respiratory: no cough, no shortness of air, no recurring pulmonary infections Cardiovascular/Peripheral Vascular: No chest pain, No palpitations, no edema, no shortness of breath. Gastrointestinal: no incontinence, normal bowel movements reported Genitourinary: no incontinence Musculoskeletal: Back pain Psychiatric: normal mood/ affect Neurological: [denies weakness in extremities], [denies balance issues] Meds Home Medications Medication Instructions Recorded Confirmed Type Atorvastatin Calcium [Atorvastatin 40 mg PO HS 11/19/17 02/12/18 History 40mg Tab] Cetirizine HCl 10 mg PO DAILY 11/19/17 02/12/18 History Duloxetine HCl [Cymbalta] 60 mg PO DAILY 11/19/17 02/12/18 History Gabapentin [Gabapentin 300mg Cap] 300 mg PO TID 11/19/17 02/12/18 History Icosapent Ethyl [Vascepa] 2 gm PO BID 11/19/17 02/12/18 History Meloxicam 15 mg PO DAILY 11/19/17 02/12/18 History Omeprazole [Omeprazole 20mg 20 mg PO DAILY 11/19/17 02/12/18 History Capsule
== END ==
PROVIDERS: PCP Internal Medicine Adolescent Medicine; Visit Provider Clinical Nurse Specialist Family Health
DX: M48.54XA Collapsed vertebra, not elsewhere classified, thoracic region, initial encounter for fracture (principal)
CPT/HCPCS: 99212

== ENCOUNTER → 2018-03-15 10:37 | Outpatient (CLI) | payer MEDICARE, SELFPAY ==
--- NOTE | 2018-03-15 10:42 | XR_ITS ---
Male DEXA SCAN.-BONE DENSITY STUDY HIPS AND LUMBAR SPINE HISTORY: Compression fracture, and a 52-year-old male. Lower back, vertebral fracture. Also vacuum, bone fracture previously. TECHNIQUE: DEXA scan hip and lumbar spine The most complete data summary and color graphic presentation of the today's ( and any prior ) DEXA findings are available in PACS. Definition and treatment guidelines included. COMPARISON: None listed LUMBAR SPINE: Normal bone density. L4 vertebral body demonstrates the lowest T score -1.4 reflecting osteopenia, with BMD1.066 g/cm sq Overall mean lumbar L1-L4 T score -0.5 which is normal, with BMD1.157 g/cm sq . . HIPS: Femoral neck density is best predictor of hip fracture risk . Left femoral neck demonstrates the lowest T score -1.0 with BMD0.937 g/cm sq . Right femoral neck, T score = -0.9 with BMD 0.95 Averaging bone density region yields today's Hip sampled Mean T score -1.0 with BMD0.937 g/cm sq. reflecting borderline osteopenia . IMPRESSION......... 1. LUMBAR SPINE: Overall Normal bone density with T score = -0.5. Early osteopenia is noted at L4 vertebral where the T score = -1.4 2. HIPS:. Hip Overall T score (, as well as Left femoral neck T score) = -1.0. Reflects borderline osteopenia at both areas WHO criteria for post-menopausal, Women: Normal: T-score at or above -1 SD Osteopenia: T-score between -1 and -2.5 SD Osteoporosis: T-score at or below -2.5 SD
== END ==
PROVIDERS: PCP Internal Medicine Adolescent Medicine; Visit Provider Clinical Nurse Specialist Family Health
DX: S32.010A Wedge compression fracture of first lumbar vertebra, initial encounter for closed fracture (principal)
CPT/HCPCS: 77080

== ENCOUNTER 2018-03-18 07:02 | Day surgery (SDC) | payer MEDICARE, SELFPAY ==
[2018-03-15 13:02] VITALS: BMI 30.9
[2018-03-18] VITALS (8 sets, daily range): BP systolic 131–150; BP diastolic 59–96; PULSE 73–88; RESP 18; TEMP 36.3–36.4; O2SAT 92–97
--- NOTE | 2018-03-18 | XR_ITS ---
XR pacemaker defibrillator CLINICAL INDICATION: pacemaker placement ORDERING PHYSICIAN: Jef Kent MD PATIENT AGE: 52 years Comparison: None Fluoroscopy time: 1 minute 44 seconds FINDINGS: 2 images submitted with the C-arm during pacemaker insertion show leads in place IMPRESSION: Status post pacemaker placement
--- NOTE | 2018-03-18 08:13 | HMH.ANESCL ---
[facility] Anesthesia Checklist - Patient Identification Patient Identification: Arm Band - Structural Data Admitted From: Home Planned Operative Procedure/s: biventricular pacemaker Consent for Planned Operative Procedure(s) Verified: Yes Verified Documents: Surgical Consent, History and Physical - NPO Status Verified Time NPO: 00:00 - Additional verifications Anesthesia Reactions: No - Airway Assessment C-Spine Mobility Assessed: Yes (mp2) TMJ Mobility Assessed: Yes Dentition: Good Dentition - Neurological Assessment Level of Consciousness: Awake, Alert - Anesthesia Plan Anesthesia Risk discussed: Yes Anesthesia Plan: Verified ASA Class: III Anesthesia Type: General [facility] Anesthesia HX I have reviewed the patient's past medical history: Yes Medical History: Reports:: Atrial Fibrillation, Gastroesophageal Reflux Disease(GERD), Hyperlipidemia, Hypertension, Palpitations, Renal Disease Denies:: Cancer, Diabetes Mellitus Type 1, Diabetes Mellitus Type 2, Internal Pacemaker, MRSA, Seizures Other Medical History: Reports: Other (jameson- no cpap). Denies: Blood Transfusion Reaction Other Surgeries: Yes: Cardiac Catheterization, EGD, Hernia Repair, Other (loop insertion). No: Pacemaker Amputation: No Fractures: No *Family Hx:: Anemia, Cancer, Coronary Artery Disease, Diabetes, Hyperlipidemia, Kidney Disease
--- NOTE | 2018-03-18 10:23 | XR_ITS ---
XR chest portable HISTORY: Follow-up pacemaker placement ITS.REASON: pacemaker placement ORDERING PHYSICIAN: Jef Kent MD PATIENT AGE: 52 years COMPARISON: 02/12/2018 FINDINGS: Bipolar pacemaker has been inserted by the left subclavian approach with the leads in good position. No evidence of pneumothorax. Skin clips are present in the left upper chest. Loop recorder device remains in place. Unremarkable cardiovascular structures with clear lungs. IMPRESSION: Status post pacemaker placement as described above
--- NOTE | 2018-03-18 10:48 | HMH.PACER ---
[facility] Pacemaker - Pacemaker Placement Date of Procedure:: 03/18/18 Time of Procedure:: 09:30 Procedure Performed:: Pocket formation for permanent pacemaker placement. Placement of atrial sensing pacing lead into the right atrial appendage. Placement of ventricular sensing pacing lead into the right ventricular apex. Permanent pacemaker placement. Preoperative Diagnosis:: Symptomatic bradycardia Sick Sinus Syndrome Complications:: None Estimated Blood Loss (ml):: 10 Technique:: 1% Lidocaine with epinephrine used to anesthetize the left anterior aspect of the chest.Scalpel was used to make the initial cutaneous incision while electrocautery was used to dissect down into the fascia. The fascia was lifted off the pectoralis muscle and digitally manipulated creating a pocket for the pacemaker. The patient was then placed in Trendelenburg position and the subclavian vein was accessed via the Selinger technique. A 7 Japanese sheath was placed under fluoroscopic guidance into the subclavian vein. Following this, an additional wire was placed into the sheath. Now, with two wires inside the 7 Japanese sheath, this sheath was removed, maintaining the two wires in the subclavian vein. The sheath and dilator was then placed over one of the wires while keeping the other wire in place within the subclavian vein. The dilator was removed from the sheath. Using fluoroscopic guidance, the ventricular lead was placed into the right ventricular apex, screwed and secured into place. Electronic interrogation proved acceptable thresholds and voltage within the lead. Using 3-0 silk, the ventricular lead was then secured into place. Lead was secured to the fascia using the 3-0 silk. Following this, the sheath was pealed away. An additional 7 Japanese fresh sheath and dilator was placed over the existing wire. Using fluoroscopic guidance, the atrial lead was then placed into the right atrial appendage and screwed and secured in place. Electrical interrogation demonstrated acceptable thresholds and voltage numbers. The atrial lead was then secured into place using 3-0 silk and then the lead was finally secured to the fascia. With both the atria and ventricular leads in place with acceptable thresholds and sensitivity, the atrial and ventricular leads were placed into the pacemaker generator. Pacemaker generator was then secured to the fascia using 3-0 silk. 1 gram of Ancef was used to flush the pocket. Following the pacemaker being secured to the fascia and in place, Monocryl was used to close the subcutaneous layers while michaela were used to close the cutaneous layer. A pressure dressing was placed and the patient was transferred to the postop holding area in stable condition for postoperative care. - Interrogation Narrative: Generator Model Number: [id number] Serial Number: [id number] RA Model Number: [id number] Serial Number : [id number] P-wave 5.0 mV Impedance 591 Ohms Threshold 1.0 V Pulse Width .4 ms RVA Model Number: [id number] Serial Number: [id number] R-wave 9-10 mV Impedance 600 Ohms Threshold .6 V Pulse Width .4 ms Pacing Parameters: Mode: DDDR Base/Max Track: 60/120 Impression:: Successful pocket formation for permanent pacemaker placement. Successful placement of atrial and sensing pacing lead into the right atrial appendage. Successful placement of ventricular sensing and pacing lead into the right ventricular apex. Successful permanent pacemaker placement. Plan: Postoperative wound care
--- NOTE | 2018-03-18 10:54 | P.PCN_ITS ---
[facility] Pacemaker - Pacemaker Placement Date of Procedure:: 03/18/18 Time of Procedure:: 09:30 Procedure Performed:: Pocket formation for permanent pacemaker placement. Placement of atrial sensing pacing lead into the right atrial appendage. Placement of ventricular sensing pacing lead into the right ventricular apex. Permanent pacemaker placement. Preoperative Diagnosis:: Symptomatic bradycardia Sick Sinus Syndrome Complications:: None Estimated Blood Loss (ml):: 10 Technique:: 1% Lidocaine with epinephrine used to anesthetize the left anterior aspect of the chest.Scalpel was used to make the initial cutaneous incision while electrocautery was used to dissect down into the fascia. The fascia was lifted off the pectoralis muscle and digitally manipulated creating a pocket for the pacemaker. The patient was then placed in Trendelenburg position and the subclavian vein was accessed via the Selinger technique. A 7 [place] sheath was placed under fluoroscopic guidance into the subclavian vein. Following this, an additional wire was placed into the sheath. Now, with two wires inside the 7 [place] sheath, this sheath was removed, maintaining the two wires in the subclavian vein. The sheath and dilator was then placed over one of the wires while keeping the other wire in place within the subclavian vein. The dilator was removed from the sheath. Using fluoroscopic guidance, the ventricular lead was placed into the right ventricular apex, screwed and secured into place. Electronic interrogation proved acceptable thresholds and voltage within the lead. Using 3-0 silk, the ventricular lead was then secured into place. Lead was secured to the fascia using the 3-0 silk. Following this, the sheath was pealed away. An additional 7 [place] fresh sheath and dilator was placed over the existing wire. Using fluoroscopic guidance, the atrial lead was then placed into the right atrial appendage and screwed and secured in place. Electrical interrogation demonstrated acceptable thresholds and voltage numbers. The atrial lead was then secured into place using 3-0 silk and then the lead was finally secured to the fascia. With both the atria and ventricular leads in place with acceptable thresholds and sensitivity, the atrial and ventricular leads were placed into the pacemaker generator. Pacemaker generator was then secured to the fascia using 3-0 silk. 1 gram of Ancef was used to flush the pocket. Following the pacemaker being secured to the fascia and in place, Monocryl was used to close the subcutaneous layers while michaela were used to close the cutaneous layer. A pressure dressing was placed and the patient was transferred to the postop holding area in stable condition for postoperative care. - Interrogation Narrative: Generator Model Number: [id number] Serial Number: [id number] RA Model Number: [id number] Serial Number : [id number] P-wave 5.0 mV Impedance 591 Ohms Threshold 1.0 V Pulse Width .4 ms RVA Model Number: [id number] Serial Number: [id number] R-wave 9-10 mV Impedance 600 Ohms Threshold .6 V Pulse Width .4 ms Pacing Parameters: Mode: DDDR Base/Max Track: 60/120 Impression:: Successful pocket formation for permanent pacemaker placement. Successful placement of atrial and sensing pacing lead into the right atrial appendage. Successful placement of ventricular sensing and pacing lead into the right ventricular apex. Successful permanent pacemaker placement. Plan: Postoperative wound care
--- NOTE | 2018-03-18 13:22 | PC.NURSE ---
Clarified pt medications for home. Per Dr Kent pt ok to resume eloquis and asa tomorrow.
== END 2018-03-18 12:35 | disposition home or self-care (01) ==
LOC: OR 07:03
PROVIDERS: PCP Internal Medicine Adolescent Medicine; Visit Provider Internal Medicine
DX: I49.5 Sick sinus syndrome (principal); I48.0 Paroxysmal atrial fibrillation; K25.9 Gastric ulcer, unspecified as acute or chronic, without hemorrhage or perforation; R94.31 Abnormal electrocardiogram [ECG] [EKG]; R06.09 Other forms of dyspnea; I12.9 Hypertensive chronic kidney disease with stage 1 through stage 4 chronic kidney disease, or unspecified chronic kidney disease; N18.9 Chronic kidney disease, unspecified; I11.9 Hypertensive heart disease without heart failure
CPT/HCPCS: 33208; 71045; 96374; C1785; C1898

== ENCOUNTER → 2018-03-21 12:24 | Outpatient (CLI) | payer MEDICARE, SELFPAY ==
--- NOTE | 2018-03-21 12:27 | CT_ITS ---
CT chest wo con HISTORY: Chest pain, sarcoidosis evaluation ITS.REASON: rule out sarcoidosis ORDERING PHYSICIAN: Jef Kent MD PATIENT AGE: 52 years COMPARISON: 02/22/1970 Technique: Axial images obtained. Sagittal and coronal reformatted images are also generated and reviewed. All CT scans at the facility use one or more dose reduction, viz: automated exposure control; ma/kV adjustment per patient size (including targeted exams where dose is matched to indication; i.e. head); or iterative reconstruction technique. FINDINGS: No mediastinal or hilar mass or adenopathy. Normal heart size. Cardiac pacemaker device present from left subclavian approach. There is minimal amount of subcutaneous gas in the left chest wall adjacent to the recently placed pacemaker. No evidence of pneumothorax. No evidence of pericardial effusion. Calcified granuloma right upper lobe anteriorly there is a 4 mm subpleural nodular density in the right lower lung anteriorly. 3 mm noncalcified nodule is present in the right middle lobe laterally and one anteriorly there are scattered areas of groundglass opacity in the lower lung zones within the right middle lobe medially and right lung base posteriorly as well as the right lower lobe medially and inferiorly. These areas were present on the previous abdomen CT of 02/22/2017. Patchy groundglass density is present in the lingula laterally also present on the previous exam no suspicious pulmonary nodules. No effusion. There is a moderate sized hiatal hernia. Upper abdominal images show fatty infiltration of the pancreas There is severe wedging of L1 was present on previous MRI of 03/07/2018. IMPRESSION: There are scattered fibrotic changes in the lower lobes, right middle lobe, and lingula. These areas may be slightly progressed when compared to the previous CT scan of 02/22/2017. These findings are not typical for sarcoidosis. No adenopathy is evident as well. Suggest continued follow-up to confirm stability. Medium-sized hiatal hernia
== END ==
PROVIDERS: PCP Internal Medicine Adolescent Medicine; Visit Provider Internal Medicine
DX: R94.31 Abnormal electrocardiogram [ECG] [EKG] (principal); R06.02 Shortness of breath; D86.9 Sarcoidosis, unspecified
CPT/HCPCS: 71250

== ENCOUNTER → 2018-04-16 10:54 | Outpatient (POV) | payer MEDICARE, SELFPAY ==
[2018-04-16 11:01] VITALS: BP 150/98; PULSE 73; RESP 18; O2SAT 98; BMI 30.2
--- NOTE | 2018-04-16 11:29 | P.CONS_ITS ---
[facility] Pain Management SOAP Note Subjective:: Patient is a pleasant 52-year-old male who presents today for follow-up after recent DEXA scan. Patient does have a burst fracture L1. Patient shows some osteopenia at L4 level. Patient states his pain is a 0 out of 10 today when he sitting. Patient states it gets worse when he is up and around. I gave the patient a back brace at his last visit however he states that he does not like to wear it because it aggravates him. Patient states most of his pain is in his low back and down his left leg. We discussed epidural steroid injections at this time and he is uninterested. Patient would like to take one round of oral steroids and see how this does. ROS General: no recent weight change, no fever, no sleep disturbances Respiratory: no cough, no shortness of air, no recurring pulmonary infections Cardiovascular/Peripheral Vascular: No chest pain, No palpitations, no edema, no shortness of breath. Gastrointestinal: no incontinence, normal bowel movements reported Genitourinary: no incontinence Musculoskeletal: Back pain, left leg pain Psychiatric: normal mood/ affect Neurological: [denies weakness in extremities], [denies balance issues] Objective:: Physical Exam General: Alert and oriented x3, no acute distress, pleasant and cooperative, [ on room air] Lungs: Resps E/U, Symmetrical chest expansion, Eyes: PERRL Musculoskeletal: Flexion and extension of lumbar spine somewhat guarded secondary to pain, deep tendon reflexes normal, strength in upper and lower extremities [5/5], normal gait noted Neurological: speech clear, starcher and tenter range feeder equal, no gross sensory deficits Assessment:: Compression fracture, degenerative disc disease, lumbar radiculopathy Plan:: We will call in the patient prednisone 20 mg 1 p.o. twice daily for 5 days. Patient is good to call our office after this if he feels like he needs any further treatment. Patient is an epidural candidate. This note was dictated using voice recognition software and may contain errors or omissions
== END ==
PROVIDERS: PCP Internal Medicine Adolescent Medicine; Visit Provider Clinical Nurse Specialist Family Health
DX: M51.36 Other intervertebral disc degeneration, lumbar region (principal)
CPT/HCPCS: 99212

== ENCOUNTER 2018-07-01 10:52 | Outpatient (RCR) | payer MEDICARE, SELFPAY ==
--- NOTE | 2018-07-01 13:42 | HMH.OTOPEV ---
OT Inpatient Evaluation Rehab OT Outpatient Eval Start: 07/01/18 13:26 Freq: Status: Active Protocol: Document 07/01/18 13:27 TFRY (Rec: 07/01/18 13:42 TFRY [id number]) Electronically Signed By Blanquita Villeda OT 07/01/18 13:27 Outpatient Therapy Subjective History Subjective History THIS IS A 53 YEAR OLD RIGHT HANDED MALE REFERRED TO OCCUPATIONAL THERAPY FOR RIGHT SHOULDER PAIN. PATIENT REPORTS THAT PAIN HAS BEEN ONGOING FOR 2-3 MONTHS AND HAS CONTINUED TO GET WORSE. Chief Complaint Pain Symptom Type Sharp Symptoms Relieved By Nothing Symptoms Aggravated By Physical Activity Prior Functional Limitations None Current Functional Limitations None Symptom Description Constant and Continuous Level of pain today (0-10) 5 Pain scale - at its best (0-10) 5 Pain scale - at its worst (0-10) 8 Shoulder/Elbow Eval Shoulder Objective Measurements Palpation Tenderness Shoulder Palpation Findings None/Normal Shoulder ROM Right Shoulder Abduction Active Range of WFL Motion (degrees) Shoulder Flexion Active Range of Motion WFL (degrees) Query Text: Shoulder External Rotation Active Range WFL of Motion (degrees) Shoulder Internal Rotation Active Range 0 of Motion (degrees) Shoulder Internal Rotation Passive Range 5 of Motion (degrees) Shoulder Extension Active Range of WFL Motion (degrees) pain with active ROM shoulder exam right standard pain with passive ROM shoulder exam right standard decreased ROM shoulder exam standard right Shoulder MMT Shoulder Abduction Strength Grade 3+ Fair+ Shoulder Extension Strength Grade 3+ Fair+ Shoulder External Rotation Strength 3+ Fair+ Grade Shoulder Internal Rotation Strength 3- Fair- Grade Shoulder Strength Patient Testing Sitting Position Shoulder Special Tests impingement sign present shoulder exam right standard Shoulder Empty Can (Supraspinatus) Test Positive Right Shoulder [place] Impingement Positive Right Test Elbow Objective Measurements OT Outpatient Assessment Impairments Problems/Impairments Impaired Range of Motion Impaired Strength Subjective C/O Pain Prognosis Rehab Potential Fair Clinical Impression Consistent with Diagnosis Yes Short Term Goals Number of Weeks
== END 2018-08-05 13:38 | disposition home or self-care (01) ==
LOC: OT 10:52
PROVIDERS: Visit Provider Internal Medicine Adolescent Medicine
DX: M25.511 Pain in right shoulder (principal)
CPT/HCPCS: 97033; 97110; 97165

== ENCOUNTER 2018-07-23 10:30 | Outpatient (RCR) | payer MEDICARE, SELFPAY ==
--- NOTE | 2018-07-23 12:20 | HMH.PTOPEV ---
PT Outpatient Evaluation Rehab PT Outpatient Evaluation Start: 07/23/18 11:45 Freq: Status: Active Protocol: Document 07/23/18 11:45 [email or web address] (Rec: 07/23/18 12:20 [email or web address] [id number]) Electronically Signed By Kristian Olmos, PT 07/23/18 11:45 Outpatient Therapy Subjective History Subjective History Pt. is a 53 year old white male who presents to Outpatient PT for chronic LB pain of insidious onset with a recent exacerbation of LB pain 6 months ago. Pt. reports flipping over a zero-turn mower that landed on top of him while attempting to mow up an incline. Diagnostic imaging positvie for 40% fracture per pt. report. Diagnostic imaging also reports early L4 osteopenia because of a -1.4 T-score, and early borderline B hip osteopenia with a T-score of 1 .0 on 03/15/18. Pt. reports having a brace, but states it hurts more when he wears it. Pt. reports having 2 LB injections that provided relief just for the car ride home from the hospital. PMH includes stomach ulcer surgery and a surgical removal of a lipoma in his upper thoracic region. Current medications include Meloxicam that has helped with pain relief per pt . report. Pt. reports he is currently on disability. Chief Complaint Pain Symptom Type Ache Numbness Symptoms Relieved By Rest/Positioning Heat Prescription Meds Symptoms Aggravated By Sitting Standing Bending/Stooping Physical Activity Twisting Walking Prior Functional Limitations None Current Functional Limitations Lifting Housework Sleeping Standing
== END 2018-08-06 11:25 | disposition home or self-care (01) ==
LOC: PT 10:30
PROVIDERS: Visit Provider Internal Medicine Adolescent Medicine
DX: M54.5 Low back pain (principal)
CPT/HCPCS: 97110; 97163

== ENCOUNTER → 2018-08-20 09:35 | Outpatient (CLI) | payer MEDICARE, SELFPAY ==
[2018-08-20 14:09] LABS: Basophils % 0.3 % (0.1-2.0); Eosinophils # 0.1 K/mm3 (0.0-0.4); Eosinophils % 1.7 % (0.1-12.0); Hemoglobin 13.7 g/dL (14.1-18.0); Lymphocytes # 1.3 K/mm3 (0.7-4.5); Lymphocytes % 15.8 % (10-50); Mean Corpuscular HGB Conc 32.5 g/dL (31.8-35.4); Mean Corpuscular Hemoglobin 29.1 pg (27.0-31.2); Mean Corpuscular Volume 89.5 fl (80-94); Mean Platelet Volume 6.7 fl (7.4-10.4); Monocytes # 0.3 K/mm3 (0.1-1.0); Monocytes % 3.7 % (1.7-9.3); Neutrophils # 6.3 K/mm3 (1.8-7.8); Neutrophils % 78.5 % (37.0-80.0); Platelet Count 271 K/mm3 (142-424); Red Cell Distribution Width 13.7 % (11.5-17.5)
[2018-08-20 14:26] LABS: Alanine Aminotransferase 29 U/L (12-78); Albumin Level 3.5 gm/dL (3.4-5.0); Alkaline Phosphatase 122 U/L (46-116); Anion Gap 14.8 mEq/L (5-15); Aspartate Amino Transferase 15 U/L (15-37); Bilirubin,Total 0.7 mg/dL (0.2-1.0); Blood Urea Nitrogen 21 mg/dL (7-18); Calcium 8.6 mg/dL (8.5-10.1); Carbon Dioxide 26 mmol/L (21.0-32.0); Chloride 104 mmol/L (98-107); Creatine Kinase 49 U/L (39-308); Creatinine,Serum 1.76 mg/dL (0.70-1.30); Estimated Glomerular Filt Rate 40 ml/min (>60); GFR (African American) 49 ML/MIN (>60); Globulin 3.5 gm/dl (1.3-3.2); Glucose 172 mg/dL (74-106); Potassium 3.8 mmoL/L (3.5-5.1); Sodium 141 mmol/L (136-145)
[2018-08-22 07:00] LABS: Anti-Jo-1 <0.2 AI (0.0-0.9)
== END ==
PROVIDERS: PCP Internal Medicine Adolescent Medicine; Visit Provider Internal Medicine Adolescent Medicine
DX: M79.10 Myalgia, unspecified site (principal)
CPT/HCPCS: 36415; 80053; 82550; 85025; 86235

== ENCOUNTER 2018-08-21 13:00 | Outpatient (RCR) | payer MEDICARE, SELFPAY | END 2018-08-21 13:05 | disposition home or self-care (01) | LOC: PT 13:00 | PROVIDERS: Visit Provider Internal Medicine Adolescent Medicine | DX: M54.5 Low back pain (principal) | CPT/HCPCS: 97110; 97140; 97163 ==

== ENCOUNTER → 2018-12-13 09:40 | Outpatient (CLI) | payer MEDICARE, SELFPAY ==
--- NOTE | 2018-12-13 09:42 | CA_ITS ---
PROCEDURE: 2-D M-mode and color Doppler study INDICATIONS FOR THE TEST: Chest pain COPD+ Heart Murmur Tobacco Smoking Palpitations+ Fatigue Syncope Edema Hypertension+Diabetes Mellitus Rheumatic Fever SOB+[place] Obesity Hyperlipidemia+ Family History HD Additional History pacer,a-fib,jameson PATIENT INFORMATION HEIGHT:73 WEIGHT:237 GENDER: Male B/P:129/82 2-D/M-MODE INTERPRETATION: 2-D MEASUREMENTS OBSERVED VALUES IN CMS Right Ventricular Dimension (RVDd) 2.6 Interventricular Septum (Thickness)(IVsd) 0.7 Left Ventricular Internal Dimensions(LVIDd) 5.7 Left Ventricular Posterior Wall (Thickness)(LVPWd) 0.6 Aortic Root 3.8 Aortic Cusp Separation 2.3 Left Atrial Dimensions (LAD) 3.5 2D 1. Left atrium is mildly enlarged, left ventricle is normal size, mild concentric left ventricular hypertrophy, visually estimated ejection fraction of 55% with no regional wall motion abnormality, endocardial surfaces are poorly visualized. 2. The right atrium and right ventricle are mildly enlarged with normal contractility, there is a pacemaker lead seen in the right ventricle. 3. The aortic valve is thickened and calcified leaflet continue to display good mobility. 4. The mitral and tricuspid valve leaflets are minimally thickened 5. The pulmonic valve is poorly visualized. 6. No significant pericardial effusion noted. DOPPLER INTERROGATION: Doppler interrogation of the aortic, mitral and tricuspid valvular presence of mild mitral and tricuspid regurgitation, tricuspid regurgitation jet velocity is inadequate for calculation of the right ventricular systolic pressure, grade 1 diastolic dysfunction seen with tissue Doppler evidence of raised left atrial pressure. CONCLUSION: 1. Mildly enlarged left atrium, normal left ventricular size, mild concentric left ventricular hypertrophy, visually estimated ejection fraction 55% with no regional wall motion abnormality, endocardial surfaces are poorly visualized. Grade 1 diastolic dysfunction seen with tissue Doppler evidence of raised left atrial pressure. 2. Mildly enlarged right ventricle with normal contractility. 3. Mild mitral and tricuspid regurgitation. 4. No significant pericardial effusion noted.
[2018-12-13 12:03] LABS: Anion Gap 12.6 mEq/L (5-15); Blood Urea Nitrogen 24 mg/dL (7-18); Calcium 8.7 mg/dL (8.5-10.1); Carbon Dioxide 28 mmol/L (21.0-32.0); Chloride 105 mmol/L (98-107); Creatinine,Serum 1.67 mg/dL (0.70-1.30); Estimated Glomerular Filt Rate 43 ml/min (>60); GFR (African American) 52 ML/MIN (>60); Glucose 91 mg/dL (74-106); Potassium 4.6 mmoL/L (3.5-5.1); Sodium 141 mmol/L (136-145)
== END ==
PROVIDERS: PCP Internal Medicine Adolescent Medicine; Visit Provider Internal Medicine Cardiovascular Disease
DX: I48.0 Paroxysmal atrial fibrillation (principal); R06.00 Dyspnea, unspecified; I11.9 Hypertensive heart disease without heart failure; E78.49 Other hyperlipidemia
CPT/HCPCS: 36415; 80048; 83880; 93306

== ENCOUNTER → 2019-01-28 10:23 | Outpatient (CLI) | payer MEDICARE, SELFPAY ==
[2019-01-28 11:43] LABS: Blood Urea Nitrogen 19 mg/dL (7-18); Creatinine,Serum 1.63 mg/dL (0.70-1.30); Estimated Glomerular Filt Rate 44 ml/min (>60); GFR (African American) 53 ML/MIN (>60)
== END ==
PROVIDERS: Visit Provider Internal Medicine Adolescent Medicine
DX: M79.10 Myalgia, unspecified site (principal)
CPT/HCPCS: 36415; 82565; 84520

== ENCOUNTER → 2019-02-06 08:27 | Outpatient (CLI) | payer MEDICARE, SELFPAY ==
--- NOTE | 2019-02-06 09:50 | CT_ITS ---
CT abdomen pelvis wo/w con CLINICAL INDICATION: Left lower quadrant pain ITS.REASON: LLQ PAIN ORDERING PHYSICIAN: Noble Lester MD PATIENT AGE: 53 years COMPARISON: 02/22/2017 TECHNIQUE: Axial images obtained without and with contrast with sagittal and coronal reformats. All CT scans at the facility use one or more dose reduction, viz: automated exposure control, ma/kV adjustment per patient size (including targeted exams where dose is matched to indication, i.e. head), or iterative reconstruction technique. PROCEDURE: Oral Contrast: Redicat IV Contrast: 75 mL's Optiray 350. FINDINGS: Lower thorax: There are mild fibrotic changes in the right lung base posteriorly. There are moderate-sized hiatal hernia. Artifact is present from pacemaker wires. Liver, gallbladder, spleen, adrenal glands, and kidneys have an unremarkable appearance. There is fatty infiltration of the pancreas. No pancreatic mass or peripancreatic inflammatory changes evident. No renal or ureteral calculi identified on the unenhanced images. No evidence of appendicitis or diverticulitis. No pelvic mass abnormal fluid collection or focal inflammatory changes pelvis. Post vasectomy changes. There are severe wedge compression changes involving L1 which were present on previous MRI of 03/07/2018. There is mild retrolisthesis of the posterior superior aspect of the L1 vertebral body x 4 mm. No evidence of aortic aneurysm. IMPRESSION: 1. Moderate-sized hiatal hernia. 2. No acute finding of the abdomen or pelvis. 3. Chronic wedge compression changes of L1 with mild kyphosis
== END ==
PROVIDERS: PCP Internal Medicine Adolescent Medicine; Visit Provider Internal Medicine Adolescent Medicine
DX: R10.12 Left upper quadrant pain (principal)
CPT/HCPCS: 74178; 93005; Q9967

== ENCOUNTER 2019-02-06 12:26 | Emergency (ER) | payer MEDICARE, SELFPAY ==
[2019-02-06 12:27] VITALS: BP 154/110; PULSE 104; RESP 18; TEMP 36.8; O2SAT 93; BMI 29.5
--- NOTE | 2019-02-06 12:30 | HMH.EDGENADL ---
ED Disposition Clinical Impression: Palpitations, Sinus tachycardia Disposition: Home, Self-Care Condition on Discharge: Good Additional Instructions: continue current meds. follow up with Dr. Kent Referrals: Provider,Referral, [Referring] - Time of Disposition: 15:02 - Critical Care Critical Care Time: No Attestation: On , the high probability of a clinically significant, sudden or life threatening deterioration of the following system(s) required my full and direct attention, intervention and personal management. The time I documented below is in addition to time spent performing reported procedures but includes the following listed in this critical care notation. Medical Decision Making - Medical Records Medical records reviewed: Yes: I reviewed the patient's medical records. - Oswaldo Inquiry Pt receiving controlled substance: No Oswaldo was queried for this patient: No Vital Signs: 02/06/19 12:27 Temperature 98.2 F Temperature Source Oral Pulse Rate [Right Apical] 104 H Respiratory Rate 18 Blood Pressure [Right Arm] 154/110 H Blood Pressure Mean [Right Arm] 124 02 Sat by Pulse Oximetry 93 L Oxygen Delivery Method Room Air - Lab Data Lab results reviewed: Yes: I reviewed the patient's lab results. Lab Results 02/06/19 12:48: WBC 4.9, RBC 4.86, Hgb 14.1, Hct 41.8 L, MCV 86.0, MCH 28.9, MCHC 33.6, RDW 14.1, Plt Count 263, MPV 8.3, Neut % (Auto) 76.0, Lymph % (Auto) 16.3, Craven % (Auto) 6.0, Eos % (Auto) 1.5, Baso % (Auto) 0.3, Neut # (Auto) 3.7, Lymph # (Auto) 0.8, Craven # (Auto) 0.3, Eos # (Auto) 0.1, Baso # (Auto) 0.0 02/06/19 12:48: Sodium 139, Potassium 3.6, Chloride 104, Carbon Dioxide 26, Anion Gap 12.6, BUN 16, Creatinine 1.68 H, Estimated Creat Clear 69, Estimated GFR 43 L, Est GFR ( Amer) 52 L, Glucose 201 H, Calcium 9.1, Total Bilirubin 0.8, AST 16, ALT 41, Alkaline Phosphatase 144 H, Troponin I < 0.02, Total Protein 7.5, Albumin 3.7, Globulin 3.8 H, Albumin/Globulin Ratio 1.0 L 02/06/19 12:48: D-Dimer < 100 Result diagrams: 02/06/19 12:48 02/06/19 12:48 Orders (Tests/Meds): ED MEDICATIONS Discontinued Medications Generic Name Dose Route Start Last Admin Trade Name Sahilq PRN Reason Stop Dose Admin Lorazepam 1 mg 02/06/19 12:41 02/06/19 13:07 Ativan 2mg/Ml Vial IV 02/06/19 12:42 1 mg ONCE ONE Administration Metoprolol Tartrate 5 mg 02/06/19 12:36 02/06/19 12:45 Metoprolol Tartrate 5mg/5ml Vial IV 02/06/19 12:37 5 mg ONCE ONE Administration Metoprolol Tartrate 5 mg 02/06/19 13:36 02/06/19 13:59 Metoprolol Tartrate 5mg/5ml Vial IV 02/06/19 13:37 5 mg ONCE ONE Administration Morphine Sulfate 4 mg 02/06/19 12:36 02/06/19 12:45 Morphine 4mg/Ml Syringe IV 02/06/19 12:37 4 mg ONCE ONE Administration Ondansetron HCl 4 mg 02/06/19 12:37 02/06/19 12:46 Zofran 4mg/2ml Vial IV 02/06/19 12:38 4 mg ONCE ONE Administration General Adult HPI - General Chief complaint: Chest Pain Stated complaint: chest pain Time Seen by Provider: 02/06/19 12:30 Mode of Arrival: EMS Source of Information: Patient Limitations: No Limitations - Related Data Home Medications Medication Instructions Recorded Confirmed Atorvastatin Calcium [Atorvastatin 40 mg PO HS 11/19/17 12/20/18 40mg Tab] Cetirizine HCl 10 mg PO DAILY 11/19/17 12/20/18 Duloxetine HCl [Cymbalta] 60 mg PO DAILY 11/19/17 12/20/18 Gabapentin [Gabapentin 300mg Cap] 300 mg PO TID 11/19/17 12/20/18 Icosapent Ethyl [Vascepa] 2 gm PO BID 11/19/17 12/20/18 Omeprazole [Omeprazole 20mg 20 mg PO DAILY 11/19/17 12/20/18 Capsule] Ropinirole HCl 2 mg PO HS 11/19/17 12/20/18 Tamsulosin HCl [Flomax] 0.4 mg PO DAILY 11/19/17 12/20/18 Trazodone HCl 200 mg PO HS 11/19/17 12/20/18 raNITIdine HCl [Ranitidine HCl] 150 mg PO BID 11/19/17 12/20/18 Sucralfate [Sucralfate 1gm 1 gm PO BID 11/20/17 12/20/18 Tab] aspirin 81 mg tablet,delayed 81 mg PO DAILY tab
--- NOTE | 2019-02-06 12:31 | XR_ITS ---
XR chest 2V HISTORY: ITS.REASON: chest pain ORDERING PHYSICIAN: Luis F Olivares MD PATIENT AGE: 53 years COMPARISON: 03/18/2018 FINDINGS: The cardiomediastinal silhouette and pulmonary vascularity are within normal limits. The lungs are clear without infiltrates, suspicious nodules, or pleural effusions. Bipolar pacemaker is present from left subclavian approach. Loop recorder device noted over the left heart. No acute bony abnormalities. IMPRESSION: No change with no acute finding
--- NOTE | 2019-02-06 12:36 | ED_ITS ---
ED Disposition Clinical Impression: Palpitations, Sinus tachycardia Disposition: Home, Self-Care Condition on Discharge: Good Additional Instructions: continue current meds. follow up with Dr. Kent Referrals: Provider,Referral, [Referring] - Time of Disposition: 15:02 - Critical Care Critical Care Time: No Attestation: On , the high probability of a clinically significant, sudden or life threatening deterioration of the following system(s) required my full and direct attention, intervention and personal management. The time I documented below is in addition to time spent performing reported procedures but includes the following listed in this critical care notation. Medical Decision Making - Medical Records Medical records reviewed: Yes: I reviewed the patient's medical records. - Oswaldo Inquiry Pt receiving controlled substance: No Oswaldo was queried for this patient: No Vital Signs: 02/06/19 12:27 Temperature 98.2 F Temperature Source Oral Pulse Rate [Right Apical] 104 H Respiratory Rate 18 Blood Pressure [Right Arm] 154/110 H Blood Pressure Mean [Right Arm] 124 02 Sat by Pulse Oximetry 93 L Oxygen Delivery Method Room Air - Lab Data Lab results reviewed: Yes: I reviewed the patient's lab results. Lab Results 02/06/19 12:48: WBC 4.9, RBC 4.86, Hgb 14.1, Hct 41.8 L, MCV 86.0, MCH 28.9, MCHC 33.6, RDW 14.1, Plt Count 263, MPV 8.3, Neut % (Auto) 76.0, Lymph % (Auto) 16.3, Luce % (Auto) 6.0, Eos % (Auto) 1.5, Baso % (Auto) 0.3, Neut # (Auto) 3.7, Lymph # (Auto) 0.8, Luce # (Auto) 0.3, Eos # (Auto) 0.1, Baso # (Auto) 0.0 02/06/19 12:48: Sodium 139, Potassium 3.6, Chloride 104, Carbon Dioxide 26, Anion Gap 12.6, BUN 16, Creatinine 1.68 H, Estimated Creat Clear 69, Estimated GFR 43 L, Est GFR ( Amer) 52 L, Glucose 201 H, Calcium 9.1, Total Bilirubin 0.8, AST 16, ALT 41, Alkaline Phosphatase 144 H, Troponin I < 0.02, Total Protein 7.5, Albumin 3.7, Globulin 3.8 H, Albumin/Globulin Ratio 1.0 L 02/06/19 12:48: D-Dimer < 100 Result diagrams: 02/06/19 12:48 02/06/19 12:48 Orders (Tests/Meds): ED MEDICATIONS Discontinued Medications Generic Name Dose Route Start Last Admin Trade Name Freq PRN Reason Stop Dose Admin Lorazepam 1 mg 02/06/19 12:41 02/06/19 13:07 Ativan 2mg/Ml Vial IV 02/06/19 12:42 1 mg ONCE ONE Administration Metoprolol Tartrate 5 mg 02/06/19 12:36 02/06/19 12:45 Metoprolol Tartrate 5mg/5ml Vial IV 02/06/19 12:37 5 mg ONCE ONE Administration Metoprolol Tartrate 5 mg 02/06/19 13:36 02/06/19 13:59 Metoprolol Tartrate 5mg/5ml Vial IV 02/06/19 13:37 5 mg ONCE ONE Administration Morphine Sulfate 4 mg 02/06/19 12:36 02/06/19 12:45 Morphine 4mg/Ml Syringe IV 02/06/19 12:37 4 mg ONCE ONE Administration Ondansetron HCl 4 mg 02/06/19 12:37 02/06/19 12:46 Zofran 4mg/2ml Vial IV 02/06/19 12:38 4 mg ONCE ONE Administration General Adult HPI - General Chief complaint: Chest Pain Stated complaint: chest pain Time Seen by Provider: 02/06/19 12:30 Mode of Arrival: EMS Source of Information: Patient Limitations: No Limitations - Related Data
[2019-02-06 12:54] LABS: Basophils % 0.3 % (0.1-2.0); Eosinophils # 0.1 K/mm3 (0.0-0.4); Eosinophils % 1.5 % (0.1-12.0); Hematocrit 41.8 % (42.0-52.0); Hemoglobin 14.1 g/dL (14.1-18.0); Lymphocytes # 0.8 K/mm3 (0.7-4.5); Lymphocytes % 16.3 % (10-50); Mean Corpuscular HGB Conc 33.6 g/dL (31.8-35.4); Mean Corpuscular Hemoglobin 28.9 pg (27.0-31.2); Mean Platelet Volume 8.3 fl (7.4-10.4); Monocytes # 0.3 K/mm3 (0.1-1.0); Neutrophils # 3.7 K/mm3 (1.8-7.8); Platelet Count 263 K/mm3 (142-424); Red Blood Count 4.86 M/mm3 (4.60-6.20); Red Cell Distribution Width 14.1 % (11.5-17.5); White Blood Count 4.9 K/mm3 (4.8-10.8)
[2019-02-06 13:09] LABS: Alanine Aminotransferase 41 U/L (12-78); Albumin Level 3.7 gm/dL (3.4-5.0); Alkaline Phosphatase 144 U/L (46-116); Anion Gap 12.6 mEq/L (5-15); Aspartate Amino Transferase 16 U/L (15-37); Bilirubin,Total 0.8 mg/dL (0.2-1.0); Blood Urea Nitrogen 16 mg/dL (7-18); Calcium 9.1 mg/dL (8.5-10.1); Carbon Dioxide 26 mmol/L (21.0-32.0); Chloride 104 mmol/L (98-107); Creatinine Clearance Estimated 69 mL/min (50-200); Creatinine,Serum 1.68 mg/dL (0.70-1.30); Estimated Glomerular Filt Rate 43 ml/min (>60); GFR (African American) 52 ML/MIN (>60); Globulin 3.8 gm/dl (1.3-3.2); Glucose 201 mg/dL (74-106); Potassium 3.6 mmoL/L (3.5-5.1); Sodium 139 mmol/L (136-145); Total Protein,Serum 7.5 gm/dL (6.4-8.2); Troponin I < 0.02 ng/ml (0.00-0.06)
[2019-02-06 13:10] LABS: D-Dimer < 100 ng/mL (0-400)
--- NOTE | 2019-02-06 15:22 | HMH.CNCARD ---
History of Present Illness Consult date: 02/06/19 Chief complaint: Tachycardia Additional Medical History:: 1. Paroxysmal atrial fibrillation, on beta-ronald and Eliquis therapy 2. History of normal coronary arteries 3. Permanent pacemaker implantation 4. Chronic kidney disease, stage II History of present illness: 53-year-old white male seen in the ER today for elevated heart rate with exertional shortness of breath. Patient relates symptoms have been present for about a week to 2 weeks and progressively have worsened. In the ER patient was noted to have heart rate was elevated and was treated successfully with IV metoprolol and Lorazepam. In the time of my evaluation the patient's heart rate is in the high 70s low 80s and sinus rhythm. Blood pressure is controlled. Patient denies missing any doses of his medications. He does note increase back and leg and heel pain recently with increase in activity. Cardiology consulted for evaluation Troponins normal x2 [facility] History Medical History: Reports:: Atrial Fibrillation, Gastroesophageal Reflux Disease(GERD), Hyperlipidemia, Hypertension, Palpitations, Renal Disease Denies:: Cancer, Diabetes Mellitus Type 1, Diabetes Mellitus Type 2, Internal Pacemaker, MRSA, Seizures *Have you ever received a pneumonia vaccine?: Yes *Have you received a flu vaccine this season?: No Other Medical History: Reports: Other. Denies: Blood Transfusion Reaction Other Surgeries: Yes: Cardiac Catheterization, EGD, Hernia Repair, Other. No: Pacemaker Amputation: No Fractures: No - *Social History Smoking Status: Never smoker Alcohol Intake: never Alcohol Intake Frequency:: holidays/special occasions only Substance Use Type: denies use *Occupational Status:: employed, disabled Housing: house Household Members: spouse *Travel in the last 8 weeks: None - Psychiatric History Expresses thoughts of harming self/others: None Suicide Plan Description: No Plan Family Hx:: Anemia, Cancer, Coronary Artery Disease, Diabetes, Hyperlipidemia, Kidney Disease Meds Home Medications Medication Instructions Recorded Confirmed Type Atorvastatin Calcium [Atorvastatin 40 mg PO HS 11/19/17 12/20/18 History 40mg Tab] Cetirizine HCl 10 mg PO DAILY 11/19/17 12/20/18 History Duloxetine HCl [Cymbalta] 60 mg PO DAILY 11/19/17 12/20/18 History Gabapentin [Gabapentin 300mg Cap] 300 mg PO TID 11/19/17 12/20/18 History Icosapent Ethyl [Vascepa] 2 gm PO BID 11/19/17 12/20/18 History Omeprazole [Omeprazole 20mg 20 mg PO DAILY 11/19/17 12/20/18 History Capsule] Ropinirole HCl 2 mg PO HS 11/19/17 12/20/18 History Tamsulosin HCl [Flomax] 0.4 mg PO DAILY 11/19/17 12/20/18 History Trazodone HCl 200 mg PO HS 11/19/17 12/20/18 History raNITIdine HCl [Ranitidine HCl] 150 mg PO BID 11/19/17 12/20/18 History Sucralfate [Sucralfate 1gm 1 gm PO BID 11/20/17 12/20/18 History Tab] bisoprolol fumarate 10 mg tablet 10 mg PO DAILY #90 tab 04/23/18 12/20/18 Rx pantoprazole 40 mg tablet,delayed 40 mg PO BID #60 tab 09/15/18 12/20/18 Rx release acetaminophen ER 650 mg 650 mg PO Q8H PRN #60 tab 12/06/18 12/20/18 Rx tablet,extended release aspirin 81 mg tablet,delayed 81 mg PO DAILY tab 12/06/18 12/20/18 History release furosemide 20 mg tablet 20 mg PO .qod #30 tab 12/06/18 12/20/18 Rx meloxicam 15 mg tablet 15 mg PO DAILY 12/06/18 12/20/18 History apixaban 5 mg tablet 5 mg PO BID #60 tab 12/20/18 12/20/18 Rx Allergies Allergy/AdvReac Type Severity Reaction Status Date / Time No Known Allergies Allergy Verified 12/20/18 09:24 Review of Systems - *Cardiovascular Reports shortness of breath with activity, Denies chest pain - *Respiratory Denies shortness of breath with activity - *Gastrointestinal Denies abdominal pain, Denies incontinent of stools - *Genitourinary Denies blood in urine - *Musculoskeletal Reports joint pain, Reports back pain - *Neurologic Reports weakness, Denies abnorm
[2019-02-06 15:35] VITALS: BP 126/66; PULSE 79; RESP 18; TEMP 36.6; O2SAT 100
== END 2019-02-06 15:44 | disposition home or self-care (01) ==
PROVIDERS: Emergency Provider Emergency Medicine; PCP Internal Medicine Adolescent Medicine
DX: R00.2 Palpitations (principal); I34.0 Nonrheumatic mitral (valve) insufficiency; I48.91 Unspecified atrial fibrillation; Z51.81 Encounter for therapeutic drug level monitoring; K21.9 Gastro-esophageal reflux disease without esophagitis; E78.5 Hyperlipidemia, unspecified; I10 Essential (primary) hypertension
CPT/HCPCS: 71046; 74178; 80053; 84484; 85025; 85378; 93005; 96372; 96374; 96376; 99283; J2405; Q9967

== ENCOUNTER → 2019-02-13 12:27 | Outpatient (CLI) | payer MEDICARE, SELFPAY ==
[2019-02-13 13:30] VITALS: PULSE 80
--- NOTE | 2019-02-13 14:30 | CT_ITS ---
CT chest wo con HISTORY: Shortness of air, shortness of breath, chest pain, ITS.REASON: ABNORMAL GXT, sob, cp ORDERING PHYSICIAN: Noble Lester MD PATIENT AGE: 53 years COMPARISON: 03/21/2018 Technique: Axial images obtained. Sagittal, and coronal reformatted images are also generated and reviewed. All CT scans at the facility use one or more dose reduction, viz: automated exposure control, ma/kV adjustment per patient size (including targeted exams where dose is matched to indication, i.e. head), or iterative reconstruction technique. FINDINGS: Pacemaker is present from left subclavian approach. No mediastinal or hilar mass or adenopathy. Normal heart size. There is a moderate-sized hiatal hernia. Calcified granuloma is present in the right upper lobe. A subpleural noncalcified nodule noted in the right upper lobe inferiorly at 4 mm unchanged. Noncalcified 4 mm nodule right middle lobe unchanged. There is some peripheral groundglass opacification in the right lower lobe with some mild interstitial prominence. This is slightly more prominent than when compared to the previous exam. No suspicious pulmonary nodules are evident. There is a 4 mm noncalcified nodule in the left upper lobe anteriorly axial image #30 unchanged. A 3 mm noncalcified nodule present in the left lower lobe axial image #54 unchanged Abdominal images show moderate sized hiatal hernia and diffuse fatty infiltration. IMPRESSION: 1. Peripheral groundglass opacity in the right lung base with some prominence of the interstitium which is slightly progressed compared to the previous study. This is nonspecific but may be seen with interstitial pneumonitis. 2. Scattered small pulmonary nodules which are unchanged. 3. Hiatal hernia
== END ==
PROVIDERS: PCP Internal Medicine Adolescent Medicine; Visit Provider Internal Medicine Adolescent Medicine
DX: R93.89 Abnormal findings on diagnostic imaging of other specified body structures (principal); R06.02 Shortness of breath; R07.89 Other chest pain
CPT/HCPCS: 71250; 94060; 94640; 94726; 94727; 94729

== ENCOUNTER → 2019-03-05 09:23 | Outpatient (CLI) | payer MEDICARE, SELFPAY ==
--- NOTE | 2019-03-05 09:25 | FL_ITS ---
EXAM: Barium swallow/esophagram. INDICATION: ITS.REASON: diff swallowing/choking ORDERING PHYSICIAN: Montana Medrano MD PATIENT AGE: 53 years COMPARISON: None TECHNIQUE: In the upright position the patient was observed to swallow barium in both the AP and lateral view. The cervical esophagus was examined under fluoroscopy with images obtained. The patient was then placed prone in the right anterior oblique position and was observed to swallow barium with Valsalva technique . FLUOROSCOPY TIME: 1 minute and 45 seconds FINDINGS: There is a medium sized hiatal hernia which did not reduce during the course of the exam. No annular constricting lesion, filling defects, or persistent mucosal abnormalities are evident. 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
== END ==
PROVIDERS: PCP Internal Medicine Adolescent Medicine; Visit Provider Otolaryngology
DX: R13.10 Dysphagia, unspecified (principal)
CPT/HCPCS: 74220

== ENCOUNTER → 2019-03-10 11:15 | Outpatient (CLI) | payer MEDICARE, SELFPAY ==
[2019-03-10 13:22] LABS: Alanine Aminotransferase 53 U/L (12-78); Albumin Level 3.7 gm/dL (3.4-5.0); Alkaline Phosphatase 166 U/L (46-116); Anion Gap 14.5 mEq/L (5-15); Aspartate Amino Transferase 24 U/L (15-37); Bilirubin,Direct 0.2 mg/dL (0.0-0.2); Bilirubin,Indirect 0.5 mg/dL (0.0-0.9); Bilirubin,Total 0.7 mg/dL (0.2-1.0); Blood Urea Nitrogen 24 mg/dL (7-18); Calcium 9.4 mg/dL (8.5-10.1); Carbon Dioxide 29 mmol/L (21.0-32.0); Chloride 105 mmol/L (98-107); Chol/HDL Ratio 4.9 (1-3.5); Cholesterol 162 mg/dL (140-200); Creatinine,Serum 1.63 mg/dL (0.70-1.30); Estimated Glomerular Filt Rate 44 ml/min (>60); GFR (African American) 53 ML/MIN (>60); Glucose 101 mg/dL (74-106); HDL Cholesterol 33 mg/dL (27-67); LDL Cholesterol 107 mg/dL (0-130); Potassium 5.5 mmoL/L (3.5-5.1); Sodium 143 mmol/L (136-145); Total Protein,Serum 7.3 gm/dL (6.4-8.2); Triglycerides 109 mg/dL (30-200); VLDL Cholesterol 22 mg/dL (0-40)
[2019-03-10 13:24] LABS: Hemoglobin A1C 5.9 % (0.0-7.0)
== END ==
PROVIDERS: Visit Provider Physician Assistant
DX: R73.09 Other abnormal glucose (principal); I11.9 Hypertensive heart disease without heart failure; G47.33 Obstructive sleep apnea (adult) (pediatric); I48.0 Paroxysmal atrial fibrillation; N18.3 Chronic kidney disease, stage 3 (moderate); Z95.0 Presence of cardiac pacemaker
CPT/HCPCS: 36415; 80048; 80061; 80076; 83036

== ENCOUNTER → 2019-03-12 13:56 | Outpatient (CLI) | payer MEDICARE, SELFPAY ==
--- NOTE | 2019-03-12 13:57 | US_ITS ---
US Arterial Ankle Brachial Ind History: ITS.REASON: leg pain, claudication, rest pain, previous smoker ORDERING PHYSICIAN: DAVIN Zelaya PATIENT AGE: 53 years TECHNIQUE: Segmental pressures obtained of both right and left leg. These are compared to brachial blood pressure to yield index at each level sampled including summary AZAEL. The data sheets from the procedure are available in PACS FINDINGS Rest study only performed today No prior studies available for comparison. Blood pressures reported are in millimeters mercury. RIGHT LEG AZAEL = 1.3. RIGHT LEG TBI=1.2 Brachial BP: 120 Thigh BP: 134 Calf BP: 128 Ankle PT: 160 Ankle DP : 149 Digit =146 LEFT LEG AZAEL = 1.2 LEFT LEG TBI= 1.0 Brachial BPD: 122 Thigh BP: 135 Calf BP: 128 Ankle PT:144 Ankle DP: 145 Digit = 119 Pulses and waveforms: Normal IMPRESSION: The ABIs as reported above are within normal limits. Waveforms and pulses are also unremarkable.
== END ==
PROVIDERS: PCP Internal Medicine Adolescent Medicine; Visit Provider Physician Assistant
DX: I73.9 Peripheral vascular disease, unspecified (principal); M79.606 Pain in leg, unspecified
CPT/HCPCS: 93922

== ENCOUNTER → 2019-06-20 09:56 | Outpatient (CLI) | payer MEDICARE, SELFPAY ==
[2019-06-20 11:42] LABS: Anion Gap 14.2 mEq/L (5-15); Blood Urea Nitrogen 19 mg/dL (7-18); Calcium 8.7 mg/dL (8.5-10.1); Carbon Dioxide 27 mmol/L (21.0-32.0); Chloride 106 mmol/L (98-107); Creatinine,Serum 1.64 mg/dL (0.70-1.30); Estimated Glomerular Filt Rate 44 ml/min (>60); GFR (African American) 53 ML/MIN (>60); Glucose 93 mg/dL (74-106); Potassium 4.2 mmoL/L (3.5-5.1); Sodium 143 mmol/L (136-145)
== END ==
PROVIDERS: Visit Provider Internal Medicine Cardiovascular Disease
DX: G47.33 Obstructive sleep apnea (adult) (pediatric); I11.9 Hypertensive heart disease without heart failure; I48.0 Paroxysmal atrial fibrillation; N18.3 Chronic kidney disease, stage 3 (moderate); R06.02 Shortness of breath; R94.31 Abnormal electrocardiogram [ECG] [EKG]; Z95.0 Presence of cardiac pacemaker; E78.49 Other hyperlipidemia
CPT/HCPCS: 36415; 80048

== ENCOUNTER 2019-11-09 00:43 | Observation (INO) ==
[2019-11-09 01:03] LABS: Basophils % 0.7 % (0.1-2.0); Eosinophils # 0.1 K/mm3 (0.0-0.4); Eosinophils % 2.3 % (0.1-12.0); Hematocrit 45.7 % (42.0-52.0); Hemoglobin 15.2 g/dL (14.1-18.0); Lymphocytes # 1.4 K/mm3 (0.7-4.5); Lymphocytes % 24.2 % (10-50); Mean Corpuscular HGB Conc 33.2 g/dL (31.8-35.4); Mean Corpuscular Volume 86.5 fl (80-94); Mean Platelet Volume 7.9 fl (7.4-10.4); Monocytes # 0.4 K/mm3 (0.1-1.0); Monocytes % 6.3 % (1.7-9.3); Neutrophils # 3.8 K/mm3 (1.8-7.8); Neutrophils % 66.5 % (37.0-80.0); Platelet Count 264 K/mm3 (142-424); Red Blood Count 5.29 M/mm3 (4.60-6.20); Red Cell Distribution Width 14.2 % (11.5-17.5); White Blood Count 5.8 K/mm3 (4.8-10.8)
[2019-11-09 01:24] LABS: Anion Gap 13.9 mEq/L (5-15); Blood Urea Nitrogen 19 mg/dL (7-18); Calcium 8.6 mg/dL (8.5-10.1); Carbon Dioxide 27 mmol/L (21.0-32.0); Chloride 103 mmol/L (98-107); Glucose 104 mg/dL (74-106); Sodium 140 mmol/L (136-145)
--- NOTE | 2019-11-09 01:46 | Emergency Department Note ---
ED Disposition Clinical Impression: Cardiac pacemaker in situ, CKD (chronic kidney disease) stage 3, GFR 30-59 ml/min Chest pain Qualifiers: Chest pain type: precordial pain Qualified Code(s): R07.2 - Precordial pain Disposition: Admitted as Observation Condition on Discharge: Good Referrals: Provider,Referral, [Primary Care Provider] - - Critical Care Critical Care Time: No Attestation: On 11/09/19, the high probability of a clinically significant, sudden or life threatening deterioration of the following system(s) required my full and direct attention, intervention and personal management. The time I documented below is in addition to time spent performing reported procedures but includes the following listed in this critical care notation. Medical Decision Making - Medical Records Medical records reviewed: Yes: I reviewed the patient's medical records. - Oswaldo Inquiry Pt receiving controlled substance: No Vital Signs: 11/09/19 00:48 11/09/19 01:13 11/09/19 01:30 Pulse Rate [Right Brachial] 69 60 61 Respiratory Rate 16 Blood Pressure [Right Arm] 137/72 138/78 124/81 Blood Pressure Mean [Right Arm] 93 98 95 Blood Pressure Source [Right Arm] Automatic Cuff Blood Pressure Position [Right Arm] Sitting 02 Sat by Pulse Oximetry 98 91 L 95 Oxygen Delivery Method Room Air - Lab Data Lab results reviewed: Yes: I reviewed the patient's lab results. Lab Results 11/09/19 00:50: WBC 5.8, RBC 5.29, Hgb 15.2, Hct 45.7, MCV 86.5, MCH 28.7, MCHC 33.2, RDW 14.2, Plt Count 264, MPV 7.9, Neut % (Auto) 66.5, Lymph % (Auto) 24.2, [place] % (Auto) 6.3, Eos % (Auto) 2.3, Baso % (Auto) 0.7, Neut # (Auto) 3.8, Lymph # (Auto) 1.4, [place] # (Auto) 0.4, Eos # (Auto) 0.1, Baso # (Auto) 0.0 11/09/19 00:50: Sodium 140, Potassium 3.9, Chloride 103, Carbon Dioxide 27, A nion Gap 13.9, BUN 19 H, Creatinine 1.48 H, Estimated Creat Clear 82, Estimated GFR 49 L, Est GFR ( Amer) 59, Glucose 104, Calcium 8.6, Troponin I < 0.02 Result diagrams: 11/09/19 00:50 11/09/19 00:50 Orders (Tests/Meds): ED MEDICATIONS Generic Name Dose Route Start Last Admin Trade Name Freq PRN Reason Stop Dose Admin Sodium Chloride 1,000 mls @ 999 mls/hr 11/09/19 01:00 11/09/19 01:00 Sod Chlor 0.9% 1000ml Bag IV 11/09/19 02:00 999 mls/hr .Q1H1M MIRTHA Administration Discontinued Medications Generic Name Dose Route Start Last Admin Trade Name Freq PRN Reason Stop Dose Admin Aspirin 243 mg 11/09/19 00:55 11/09/19 00:59 Aspirin 81mg Chewable Tablet PO 11/09/19 00:56 243 mg ONCE ONE Administration Nitroglycerin 0.4 mg 11/09/19 00:55 11/09/19 00:59 Nitrostat 0.4mg Sl Tablet SL 11/09/19 00:56 0.4 mg ONCE ONE Administration ORDERS Category Date Time Status XR chest 2V Stat Exams 11/09/19 00:54 Taken Troponin I Q3H Lab 11/09/19 04:00 Ordered Troponin I Q3H Lab 11/09/19 07:00 Ordered Urinalysis and Microscopic Stat Lab 11/09/19 00:54 Ordered - Radiology Data #1 Image(s): Chest Image Reviewed: Yes I reviewed the patient's radiology image Preliminary Findings: Normal/NAD - ECG Data Tracing #1 Normal Sinus Rhythm: Yes Ischemic changes: non-specific ST-T wave changes Chest Pain HPI - General Chief Complaint: Chest Pain Stated Complaint: CP Time Seen by Provider: 11/09/19 01:46 Mode of Arrival: Ambulatory Source of Information: Patient, Spouse, Medical Record Limitations: No Limitations Description of Symptoms (Recalled from ER Triage Doc. by RN): Patient reports he was sitting watching tv when he started having left sided chest pain about 2 hours ago. - History of Present Illness HPI narrative: pt with acute episode of chest pain with rad to lt upper ext which lasted about 4 hrs and resolved at this time - has pacemaker placed 2018 and heart cath in 2018- MD complaint: chest pain indicative of cardiac Onset (ago): hour(s) Duration: now resolved Activity at onset: during rest Pain location: substernal Severity: similar to previous episodes Quality: sharp Pain radiation: LUE Risk Factors for CAD: Family Hx of CAD Treatments prior to or on arrival for Cardiac Chest Pain: none - MALIA Score for Non-Stemi Age of Patient: 50-59 years old Heart Rate: 50-69 bpm Systolic Blood Pressure: 120-139 mmhg Serum Creatinine: 1.20-1.59 mg/dl CHF [place] Class: I-No CHF Other Risk Factors: None Non-Stemi Risk Score: 88 - Related Data Prior Cardiac Testing/Procedures: Cardiac Angiogram Home Medications Medication Instructions Recorded Confirmed Atorvastatin Calcium [Atorvastatin 40 mg PO HS 11/19/17 11/09/19 40mg Tab] Cetirizine HCl 10 mg PO DAILY 11/19/17 11/09/19 Duloxetine HCl [Cymbalta] 60 mg PO DAILY 11/19/17 11/09/19 Gabapentin [Gabapentin 300mg Cap] 300 mg PO TID 11/19/17 11/09/19 Omeprazole [Omeprazole 20mg 20 mg PO DAILY 11/19/17 11/09/19 Capsule] Ropinirole HCl 2 mg PO HS 11/19/17 11/09/19 Tamsulosin HCl [Flomax] 0.4 mg PO DAILY 11/19/17 11/09/19 Trazodone HCl 200 mg PO HS 11/19/17 11/09/19 raNITIdine HCl [Ranitidine HCl] 150 mg PO BID 11/19/17 11/09/19 aspirin 81 mg tablet,delayed 81 mg PO DAILY tab 12/06/18 11/09/19 release Furosemide [Furosemide 20mg Tab] 20 mg PO .qod 05/08/19 11/09/19 Pantoprazole Sodium [Protonix 40mg 40 mg PO BID 05/08/19 11/09/19 tablet] bisoproloL fumarate [Bisoprolol 10 mg PO BID 05/08/19 11/09/19 10mg Tablet] Previous Rx's Medication Instructions Recorded acetaminophen 650 mg 650 mg PO Q8H PRN #60 tab 12/06/18 tablet,extended release apixaban 5 mg tablet 5 mg PO BID #60 tab 12/20/18 Allergies Allergy/AdvReac Type Severity Reaction Status Date / Time No Known Allergies Allergy Verified 06/20/19 09:36 [facility] History - Hepatitis A Screen Drug use history?: No High risk sexual behaviors?: No History of sexually transmitted infection?: No Currently employed?: No Childcare worker?: No Do you have indoor plumbing?: Yes Do you have electricity?: Yes Attestation statement:: This patient has been screened for Hepatitis A risk factors. I have reviewed the patient's past medical history: Yes Medical History: Reports:: Atrial Fibrillation, Gastroesophageal Reflux Disease(GERD), Hyperlipidemia, Hypertension, Internal Pacemaker, Palpitations, Renal Disease Denies:: Cancer, Diabetes Mellitus Type 1, Diabetes Mellitus Type 2, Lung Disease, MRSA, Seizures Other Medical History: Reports: Other. Denies: Blood Transfusion Reaction Comment: KYLER non compliant CPAP, obesity Other Surgeries: Yes: Cardiac Catheterization, EGD, Hernia Repair, Pacemaker, Other Amputation: No Fractures: No Comment: Pacemaker, EGD - Social History Smoking Status: Never smoker Alcohol Intake: current Alcohol Intake Frequency:: a few times a month Substance Use Type: denies use Occupational Status: employed, disabled Housing: house Household Members: spouse Family Hx:: Anemia, Cancer, Coronary Artery Disease, Diabetes, Hyperlipidemia, Kidney Disease ROS Obtained: Yes All systems reviewed & no additional complaints - Constitutional Constitutional: Denies fever(s) - Eyes Eyes: Denies change in vision - ENT Ears, Nose, Mouth, and Throat: Denies sore throat - Cardiovascular Cardiovascular: Reports as per HPI, Reports chest pain, Reports chest pain at rest, Denies dyspnea - Respiratory Respiratory: No cough - Gastrointestinal Gastrointestingal: Denies: abdominal pain - Genitourinary Female Genitourinary: Denies hematuria - Musculoskeletal Musculoskeletal: Denies joint pain, Denies joint swelling - Integumentary/Breasts Skin/Breast: Denies rash - Neurologic Neurologic: Denies headache(s), Denies seizure-like activity Physical Exam - General General appearance: alert, obese - Head Head exam: normocephalic - Eye Eye exam: Present: PERRL, EOMI. Absent: scleral icterus - ENT ENT exam: Present: mucous membranes dry - Neck Neck exam: Present: trachea midline - Respiratory Respiratory exam: Absent: respiratory distress - Cardiovascular Cardiovascular exam: Present: regular rate, systolic murmur. Absent: rubs, gallop - Abdominal Exam Abdominal exam: Present: soft - Extremities Exam Extremities exam: Present: full ROM. Absent: calf tenderness - Neurological Exam Neurological exam: Present: alert, CN II-XII intact - Psychiatric Psychiatric exam: Present: normal affect - Skin Skin exam: Absent: rash
[2019-11-09 02:08] LABS: Microscopic, Urine URINE MICROSCOPIC (MICROSCOPIC)
[2019-11-09 02:23] LABS: Appearance,Urine CLEAR (Clear); Bilirubin,Urine Negative (Negative); Blood, Urine Negative (Negative); Color,Urine YELLOW (Yellow); Glucose,Urine (UA) Negative (Negative); Ketones,Urine Negative (Negative); Leukocyte Esterase,Urine Negative (Negative); Protein,Urine Negative (Negative)
[2019-11-09 02:26] LABS: Amorphous Sediment,Urine Trace /lpf
[2019-11-09 07:08] LABS: Basophils % 0.5 % (0.1-2.0); Eosinophils # 0.1 K/mm3 (0.0-0.4); Hematocrit 42.2 % (42.0-52.0); Lymphocytes # 1.2 K/mm3 (0.7-4.5); Lymphocytes % 23.5 % (10-50); Mean Corpuscular HGB Conc 31.5 g/dL (31.8-35.4); Mean Corpuscular Volume 90.2 fl (80-94); Mean Platelet Volume 8.7 fl (7.4-10.4); Monocytes # 0.4 K/mm3 (0.1-1.0); Monocytes % 7.2 % (1.7-9.3); Neutrophils # 3.5 K/mm3 (1.8-7.8); Neutrophils % 66.7 % (37.0-80.0); Platelet Count 225 K/mm3 (142-424); Red Blood Count 4.68 M/mm3 (4.60-6.20); Red Cell Distribution Width 14.4 % (11.5-17.5); White Blood Count 5.2 K/mm3 (4.8-10.8)
[2019-11-09 07:12] LABS: Hemoglobin 13.3 g/dL (14.1-18.0)
[2019-11-09 07:26] LABS: Anion Gap 8.4 mEq/L (5-15); Blood Urea Nitrogen 17 mg/dL (7-18); Calcium 8.2 mg/dL (8.5-10.1); Carbon Dioxide 31 mmol/L (21.0-32.0); Chloride 109 mmol/L (98-107); Glucose 95 mg/dL (74-106); Sodium 144 mmol/L (136-145)
--- NOTE | 2019-11-09 08:22 | Pharmacy Consult Notes ---
[facility] Pharmacy VTE Monitoring - Patient Demographics Admission date: 11/09/19 Report Date: 11/09/19 Time: 08:22 Allergies/Adverse Reactions: Patient Allergies No Known Allergies Allergy (Verified 06/20/19 09:36) Height: 1.83 m Weight: 96.814 kg Patient Problems: Current Active Problems Cardiac pacemaker in situ (Chronic) CKD (chronic kidney disease) stage 3, GFR 30-59 ml/min (Chronic) Chest pain (Acute) - VTE Risk Labs: VTE Related Lab Results Hgb 13.3 g/dL (14.1-18.0) L D 11/09/19 06:45 Hct 42.2 % (42.0-52.0) 11/09/19 06:45 Plt Count 225 K/mm3 (142-424) 11/09/19 06:45 BUN 17 mg/dL (7-18) 11/09/19 06:45 Creatinine 1.47 mg/dL (0.70-1.30) H 11/09/19 06:45 Estimated Creat Clear 77 mL/min (50-200) 11/09/19 06:45 VTE Score: 2 VTE Risk Level: Low Risk - Prophylaxis VTE Prophylaxis Ordered?: Yes Types of VTE Prophylaxis: TEDS Knee High, Pharmacological Location of Applied Device: Bilateral Lower Extremeties Pharmacologic Type: Other (ELIQUIS) - VTE Diagnosis Confirmed Treatment or plan recommended: Continue Current Treatment
--- NOTE | 2019-11-09 08:52 | History & Physical Report ---
*Admission Date: 11/09/19 *Chief complaint: Chest pain *History of present illness: 54-year-old white male with known coronary disease, status post multiple stress test and left heart cath with patent coronaries and stents in the summer 2017 left heart cath, with good stent placement who presented to the emergency department last night with 4 hours of pain that occurred when he was sitting in his recliner watching television. He reported the pain was constant and pressure-like but located below his left nipple. He reported that the pain was sharp and squeezing as well, but reported that when he moved his chest around it worsened. No diaphoresis. Patient is not active at all, but does report that when he climbs stairs or does his physical therapy for his shoulders and knees he has no pain. Patient was admitted overnight for evaluation for rule out [place]. [facility] History I have reviewed the patient's past medical history: Yes Medical History: Reports:: Arrhythmia, Atrial Fibrillation, Gastroesophageal Reflux Disease(GERD), Hyperlipidemia, Hypertension, Internal Pacemaker, Palpitations, Renal Disease Denies:: Cancer, Diabetes Mellitus Type 1, Diabetes Mellitus Type 2, Lung Disease, MRSA, Seizures *Have you ever received a pneumonia vaccine?: Yes *Have you received a flu vaccine this season?: Yes Other Medical History: Reports: Other. Denies: Blood Transfusion Reaction Other Surgeries: Yes: Cardiac Catheterization, Colonoscopy, EGD, Hernia Repair, Pacemaker, Other Amputation: No Fractures: No - *Social History Smoking Status: Former smoker Alcohol Intake: never Alcohol Intake Frequency:: a few times a month Substance Use Type: denies use *Occupational Status:: disabled Housing: house Household Members: spouse *Travel in the last 8 weeks: None Family Hx:: Cancer, Diabetes, Hyperlipidemia, Hypertension, Kidney Disease Review of Systems - Review of Systems Review of systems:: pertinent systems reviewed and negative unless documented below - *Neurologic Denies headache(s), Denies seizure-like activity Meds Home Medications Medication Instructions Recorded Confirmed Type Atorvastatin Calcium [Atorvastatin 40 mg PO HS 11/19/17 11/09/19 History 40mg Tab] Cetirizine HCl 10 mg PO DAILY 11/19/17 11/09/19 History Duloxetine HCl [Cymbalta] 60 mg PO DAILY 11/19/17 11/09/19 History Omeprazole [Omeprazole 20mg 20 mg PO DAILY 11/19/17 11/09/19 History Capsule] Ropinirole HCl 2 mg PO HS 11/19/17 11/09/19 History Trazodone HCl 200 mg PO HS 11/19/17 11/09/19 History raNITIdine HCl [Ranitidine HCl] 150 mg PO BID 11/19/17 11/09/19 History acetaminophen 650 mg 650 mg PO Q8H PRN #60 tab 12/06/18 11/09/19 Rx tablet,extended release aspirin 81 mg tablet,delayed 81 mg PO DAILY tab 12/06/18 11/09/19 History release apixaban 5 mg tablet 5 mg PO BID #60 tab 12/20/18 11/09/19 Rx Pantoprazole Sodium [Protonix 40mg 40 mg PO BID 05/08/19 11/09/19 History tablet] bisoproloL fumarate [Bisoprolol 10 mg PO BID 05/08/19 11/09/19 History 10mg Tablet] Allergies Allergy/AdvReac Type Severity Reaction Status Date / Time No Known Allergies Allergy Verified 06/20/19 09:36 Exam Vital signs and Labs for Last 24 Hours: Temp Pulse Resp BP Pulse Ox 97.7 F 73 16 113/68 94 L 11/09/19 07:26 11/09/19 07:26 11/09/19 07:26 11/09/19 07:26 11/09/19 07:26 Laboratory Results - last 24 hr 11/09/19 00:50: WBC 5.8, RBC 5.29, Hgb 15.2, Hct 45.7, MCV 86.5, MCH 28.7, MCHC 33.2, RDW 14.2, Plt Count 264, MPV 7.9, Neut % (Auto) 66.5, Lymph % (Auto) 24.2, [place] % (Auto) 6.3, Eos % (Auto) 2.3, Baso % (Auto) 0.7, Neut # (Auto) 3.8, Lymph # (Auto) 1.4, [place] # (Auto) 0.4, Eos # (Auto) 0.1, Baso # (Auto) 0.0 11/09/19 00:50: Sodium 140, Potassium 3.9, Chloride 103, Carbon Dioxide 27, Anion Gap 13.9, BUN 19 H, Creatinine 1.48 H, Estimated Creat Clear 82, Estimated GFR 49 L, Est GFR ( Amer) 59, Glucose 104, Calcium 8.6, Troponin I < 0.02 11/09/19 02:00: Urine Color Yellow, Urine Appearance Clear, Urine pH 7.0, Ur Specific [place] 1.010, Urine Protein Negative, Urine Glucose (UA) Negative, Ur ine Ketones Negative, Urine Blood Negative, Urine Nitrate Negative, Urine Bilirubin Negative, Urine Urobilinogen 1.0, Ur Leukocyte Esterase Negative, Amorphous Sediment Trace 11/09/19 03:55: Troponin I < 0.02 11/09/19 06:45: WBC 5.2, RBC 4.68, Hgb 13.3 L D, Hct 42.2, MCV 90.2, MCH 28.4, MCHC 31.5 L, RDW 14.4, Plt Count 225, MPV 8.7, Neut % (Auto) 66.7, Lymph % (Auto) 23.5, [place] % (Auto) 7.2, Eos % (Auto) 2.0, Baso % (Auto) 0.5, Neut # (Auto) 3.5, Lymph # (Auto) 1.2, [place] # (Auto) 0.4, Eos # (Auto) 0.1, Baso # (Auto) 0.0 11/09/19 06:45: Sodium 144, Potassium 4.4, Chloride 109 H, Carbon Dioxide 31, Anion Gap 8.4, BUN 17, Creatinine 1.47 H, Estimated Creat Clear 77, Estimated GFR 50 L, Est GFR ( Amer) 60, Glucose 95, Calcium 8.2 L, Troponin I < 0.02 I & O for Last 24 hours: Intake & Output 11/06/19 11/07/19 11/08/19 11/09/19 11:59 11:59 11:59 11:59 Intake Total 241 / 241 Balance 241 / 241 Weight 213 lb 7 oz Narrative: Patient is alert, oriented x3. Lungs are clear, no JVD. Oropharynx clear. Heart rate regular. Abdomen soft. Patient has reproducible tenderness in the left pectoral area below the left nipple in the area where he complains of pain and reports that when I push on his chest is "just like the pain." No pulse deficits. Neurologic exam intact. Assessment and Plan (1) Chest pain Current visit: Yes Status: Acute Qualifiers: Chest pain type: precordial pain Qualified Code(s): R07.2 - Precordial pain Category: Medical Code(s): R07.9 - Chest pain, unspecified Patient has had 3- enzyme test. In the face of 4 hours of pain should this have been any kind of ischemia he would have had a positive test. Patient's pain is clinically non-anginal. Patient will be discharged home. We will see him in the office this week. Stress testing if indicated. I instructed him to do heating packs, also instructed him that overall he needs to be more active and engage in some type of aerobic exercise for his ongoing cardiac health. (2) CKD (chronic kidney disease) stage 3, GFR 30-59 ml/min Current visit: Yes Status: Chronic Category: Medical Code(s): N18.3 - Chronic kidney disease, stage 3 (moderate) Baseline creatinine actually improved on testing. Continue medications
--- NOTE | 2019-11-10 13:53 | Electrocardiograph Report ---
APPROVED REPORT Exam: Resting ECG HR:70 bpm ECG Measurements Heart Rate 70 AXES NJ 186 P 47 QRSd 88 QRS 32 QT 420 T53 QTc 453 <Conclusion> Normal sinus rhythm Normal ECG Electronically signed by : Spencer Estrada, 11/10/2019 13:52:39
== END 2019-11-09 10:02 | disposition home or self-care (01) ==
LOC: 2ND 00:43 → ER 00:43 → 2ND 02:51
PROVIDERS: ADMIT Emergency Medicine; ATTEND Internal Medicine Adolescent Medicine
CPT/HCPCS: 36415; 71020; 71046; 80048; 81001; 84484; 85025; 90732; 93005; 99284; G0378

== ENCOUNTER → 2020-03-18 06:49 | Outpatient (CLI) | payer MEDICARE, SELFPAY ==
--- NOTE | 2020-03-18 06:50 | CA_ITS ---
APPROVED REPORT Exam: Pharmacologic Technologist: Malgorzata Amador, Ht: 6 ft 0 in Wt: 225 lbs BSA: 2.24 m2 Indications: CP, SOA Medical History Medical History: HTN, Hyperlipidemia Medications: Aspirin,,,,, Losartan,,,,, Pantoprazole,,,,, Ropinirole,,,,, TAMSULOSIN,,,,, DulOXETINE,,,,, BisOPROLOL,,,,, Trazodone,,,,, CetIRIZINE,,,,, AtorvaASTATIN,,,,, Apixaban,,,,, ICOSAPENT,,,,, Cardiac Risk Factors: HTN, Hyperlipidemia, FHX of CAD Stress Test Details Test: LEXISCAN Reason for pharmacologic stress test: physical limitation. HR Resting HR: 69 bpm Max Heart Rate (APMHR): 164 bpm Max HR Achieved: 102 bpm Target HR (85% APMHR): 139 bpm % of APMHR: 62 BP Resting BP: 137/83 mmHg Max BP: 143/83 mmHg ECG Clinical Exercise duration: 04:02 min Highest Stage Achieved: Exercise capacity: 1.0 METs Stress ECG Conclusion Mild SOA & lightheaded, no CP no arrhythmias no significant ST changes unremarkable lexiscan stress myoview images reported separately Electronically signed by : Antonio Bolivar, 03/18/2020 11:00:11
--- NOTE | 2020-03-18 06:50 | NM_ITS ---
APPROVED REPORT Exam: Nuclear Stress Test Indication: chest pain..short of breath..fatigue Patient Location: Outpatient Stress Tech: Malgorzata Amador DE Tech:ANOOP Butt RT(R)(N) Ht: 6 ft 0 in Wt: 225 lbs HR: 75 bpm BP: 137/83 mmHg BSA: 2.24 m2 History: chest pain..short of breath..fatigue Procedure: Patient received a 0.4 mg of intravenous Lexiscan, resting heart rate 75 bpm, resting blood pressure 137/83 mmHg, with Lexiscan maximum heart rate achived was 98 bpm which is Less than 85 % of the maximum predicted heart rate and blood pressure was 131/72 mmHg. With Lexiscan, patient denied any complaint of chest pain. Electrocardiogram Resting electrocardiogram showed sinus rhythm, with Lexiscan there is less than 1.[address] segment depression noted from the baseline EKG. The EKG portion of the Lexiscan Myoview is nondiagnostic. Cardiac Stress and Resting SPECT Images: Cardiac Stress and Resting SPECT images were obtained using technetium 99m Myoview 30.5 mCi stress and 10.77 mCi at rest. Gated SPECT with analysis of segmental wall motion and calculation of the ejection fraction also done. Cardiac stress and resting SPECT images show mild fixed defect in the inferior wall with normal contracted gated SPECT is likely secondary to soft tissue attenuation, no reversible ischemia seen. Computer derived ejection fraction is 65% with no regional wall motion abnormality, right ventricle is normal size and contractility. Conclusion: 1. The EKG portion of the Lexiscan Myoview is nondiagnostic. 2. No scintigraphic evidence of reversible ischemia seen, computer derived ejection fraction is over 65% with no regional wall motion abnormality, right ventricle is normal size and contractility. 3. Likely normal Lexiscan Myoview study. Electronically signed by : Antonio Bolivar, 03/18/2020 11:02:50
--- NOTE | 2020-03-18 06:50 | CA_ITS ---
APPROVED REPORT EXAM: Comprehensive 2D, Doppler, and color-flow Echocardiogram Collection Clerk: Kandy Fontaine CRT Ht: 6 ft 0 in Wt: 226lbs BSA: 2.24 BP: 121/77 mmHg Indications: CP, COPD,KYLER, CKD, GERD, AFIB, PACER, CP,PALPITATIONS, HTN, HLD, SOB 2D Dimensions LVOT 2.21 cm (M/F) 1.5-2.5 M-Mode Dimensions RVDd 2.76 cm (0.9-2.6) LVDd 5.02 cm (3.5-5.7) LVDs 3.10 cm (3.5-5.7) IVSd 1.36 cm (0.6-1.1) PWd 0.59 cm (0.6-1.1) EF (Teich) 68.20% FS 38.20% EDV (Teich) 119.30 mL ESV (Teich) 37.90 mL LV Diastology E/A Ratio 1.17 Mitral Valve MV A Velocity 64.00 (40-130 cm/s) Left Ventricle Left atrium is mildly enlarged, left ventricle is normal size, mild concentric left ventricular hypertrophy, visually estimated ejection fraction 55% with no regional wall motion abnormality, grade 1 diastolic dysfunction seen without tissue Doppler evidence of raise left atrial pressure. Right Ventricle Right atrium and right ventricle are mildly enlarged with normal contractility, there is a pacemaker lead seen right atrium and right ventricle. Aortic Valve Aortic valve is minimally thickened and fibrosed, there is no aortic stenosis or aortic insufficiency. Mitral Valve Mitral valve grossly normal, there is mild mitral regurgitation. Tricuspid Valve Tricuspid valve is grossly normal, there is mild tricuspid regurgitation. Tricuspid regurgitation jet velocity is inadequate for calculation of the right ventricular systolic pressure. Pulmonic Valve Pulmonic valve is poorly visualized. Great Vessels Aortic root is normal size. Pericardium No significant pericardial effusion noted. Conclusion 1. Mild biatrial enlargement, normal left ventricular size, mild concentric left ventricular hypertrophy, visually estimated ejection fraction 55% with no regional wall motion abnormality, grade 1 diastolic dysfunction seen without tissue Doppler evidence of raise left atrial pressure. 2. Mild mitral and tricuspid regurgitation. 3. No significant pericardial effusion noted. Electronically signed by : Antonio Bolivar, 03/18/2020 15:07:29
--- NOTE | 2020-03-18 09:11 | HMH.ITSHM ---
Current Home Medications as stated by this patient Timur Uribe or eligibility services representative. [] omeprazole trazodone tamsulosin asa bisoprolol atorvastatin losartan-hctz
== END ==
PROVIDERS: PCP Internal Medicine Adolescent Medicine; Visit Provider Internal Medicine Cardiovascular Disease
DX: I11.9 Hypertensive heart disease without heart failure; I48.0 Paroxysmal atrial fibrillation; N18.3 Chronic kidney disease, stage 3 (moderate); R07.2 Precordial pain; R94.31 Abnormal electrocardiogram [ECG] [EKG]; Z95.0 Presence of cardiac pacemaker; R06.02 Shortness of breath
CPT/HCPCS: 78452; 93017; 93306; A9502; J2785

== ENCOUNTER → 2020-04-01 08:50 | Outpatient (CLI) | payer MEDICARE, SELFPAY ==
[2020-04-01 10:11] LABS: Chloride 104 mmol/L (98-107); Sodium 141 mmol/L (136-145)
[2020-04-01 10:12] LABS: Potassium 5.2 mmoL/L (3.5-5.1)
[2020-04-01 10:14] LABS: Blood Urea Nitrogen 24 mg/dl (9-20); Estimated Glomerular Filt Rate 52 ml/min (>60); GFR (African American) 63 ML/MIN (>60)
[2020-04-01 10:15] LABS: Anion Gap 11.2 mEq/L (5-15); Calcium 9.1 mg/dl (8.4-10.2); Carbon Dioxide 31 mmol/L (22.0-30.0); Glucose 114 mg/dl (74-100)
[2020-04-01 10:21] LABS: NT Pro Brain Natriuretic Pep. 54.9 pg/mL (0-125)
== END ==
PROVIDERS: Visit Provider Internal Medicine Cardiovascular Disease
DX: R07.2 Precordial pain (principal); R06.02 Shortness of breath; R94.31 Abnormal electrocardiogram [ECG] [EKG]; I48.0 Paroxysmal atrial fibrillation; I11.9 Hypertensive heart disease without heart failure; E78.49 Other hyperlipidemia; N18.3 Chronic kidney disease, stage 3 (moderate); G47.33 Obstructive sleep apnea (adult) (pediatric); Z95.0 Presence of cardiac pacemaker
CPT/HCPCS: 36415; 80048; 83880

== ENCOUNTER → 2020-04-19 13:48 | Outpatient (CLI) | payer MEDICARE, SELFPAY ==
--- NOTE | 2020-04-19 13:48 | CT_ITS ---
PROCEDURE: CT CHEST WO CON CLINICAL INDICATION: hemoptysis COMPARISON: CHESTWO CT chest wo con from 02/13/2019 TECHNIQUE: Axial images obtained with sagittal and coronal reformats. All CT scans at the facility use one or more dose reduction, viz: automated exposure control, ma/kV adjustment per patient size (including targeted exams where dose is matched to indication, i.e. head), or iterative reconstruction technique. FINDINGS: HEART AND MEDIASTINAL STRUCTURES: Cardiac pacemaker is present from left subclavian approach. Loop recorder device is also present. No mediastinal or hilar mass. There is a moderate-sized hiatal hernia with mild thickening of the distal esophagus nonspecific similar to the previous exam LUNGS AND PLEURAL SPACES: Stable subpleural 3 mm nodule right upper lobe anteriorly image 46 series 3. Stable 3 mm nodule right middle lobe image 56 series 3. There is some mild peripheral patchy ground-glass density in the right middle lobe laterally and right lower lobe laterally and posteriorly similar to the previous exam. A 3 mm noncalcified nodules present in the left upper lobe image 31 series 3 unchanged. Minimal atelectatic or fibrotic changes are present in the left lower lobe medially. There is some mild fibrotic changes in the right lower lobe medially. BONY STRUCTURES: No change in the severe wedge compression changes involving the T12 vertebral body. UPPER ABDOMEN: Unremarkable. ADDITIONAL FINDINGS: No other significant abnormalities. IMPRESSION: Overall no significant change in the appearance of the chest with stable bilateral nodular opacities and stable areas of fibrosis and subpleural ground-glass opacities. A new area of fibrotic change or atelectasis is present in the left lower lobe medially. Medium-sized hiatal hernia with mild nonspecific thickening of the distal esophagus. Dictated by: Domingo Yu MD 04/20/2020 13:20 Electronically signed by Domingo Yu MD in [place] 04/20/2020 13:20
[2020-04-19 15:33] LABS: MANUAL DIFFERENTIAL MANUAL DIFFERENTIAL (MANUAL DIFF)
[2020-04-19 15:44] LABS: Basophils % 0.6 % (0.1-2.0); Eosinophils # 0.1 K/mm3 (0.0-0.4); Hematocrit 46.1 % (42.0-52.0); Hemoglobin 15.2 g/dL (14.1-18.0); Lymphocytes # 1.3 K/mm3 (0.7-4.5); Lymphocytes % 22.8 % (10-50); Mean Corpuscular Hemoglobin 29.7 pg (27.0-31.2); Mean Corpuscular Volume 90.1 fl (80-94); Mean Platelet Volume 8.8 fl (7.4-10.4); Monocytes # 0.4 K/mm3 (0.1-1.0); Monocytes % 7.3 % (1.7-9.3); Neutrophils # 3.7 K/mm3 (1.8-7.8); Neutrophils % 67.3 % (37.0-80.0); Platelet Count 280 K/mm3 (142-424); Red Blood Count 5.11 M/mm3 (4.60-6.20); Red Cell Distribution Width 14.8 % (11.5-17.5); White Blood Count 5.6 K/mm3 (4.8-10.8)
[2020-04-19 16:06] LABS: Activated Partial Thrombo Time 20.7 seconds (23.6-34.0); Prothrombin Time 10.3 seconds (9.4-11.8)
[2020-04-19 20:18] LABS: Eosinophils % 1 % (0-3); Lymphocytes % 19 % (10-50); Monocytes % 14 % (2-9); Neutrophils % 66 % (42-76); Platelet Estimate Normal; RBC Morphology Normal; Total Cells Counted 100
== END ==
PROVIDERS: Otolaryngology; PCP Internal Medicine Adolescent Medicine; Visit Provider Physician Assistant
DX: R04.2 Hemoptysis (principal)
CPT/HCPCS: 36415; 71250; 85007; 85014; 85018; 85048; 85049; 85610; 85730

== ENCOUNTER → 2020-04-19 15:31 | Outpatient (CLI) | payer MEDICARE, SELFPAY | PROVIDERS: Visit Provider Otolaryngology | DX: R04.2 Hemoptysis (principal) | CPT/HCPCS: 36415; 71250; 85007; 85014; 85018; 85048; 85049; 85610; 85730 ==

== ENCOUNTER → 2020-04-20 08:29 | Outpatient (CLI) | payer MEDICARE, SELFPAY ==
--- NOTE | 2020-04-20 08:30 | FL_ITS ---
PROCEDURE: FL BARIUM SWALLOW CLINICAL INDICATION: dysphagia COMPARISON: No exams were available for comparison TECHNIQUE: In the upright position the patient was observed to swallow barium in both the AP and lateral view. The cervical esophagus was examined under fluoroscopy with images obtained. The patient was then placed prone in the right anterior oblique position and was observed to swallow barium with Valsalva technique . FLUOROSCOPY TIME: 1 minutes FINDINGS: There is a moderate sized hiatal hernia. This did not reduce during the course of the exam. No annular constricting lesions or polypoid filling defects. IMPRESSION: Medium-sized hiatal hernia Dictated by: Domingo Yu MD 04/20/2020 16:52 Electronically signed by Domingo Yu MD in [place] 04/20/2020 16:52
== END ==
PROVIDERS: PCP Internal Medicine Adolescent Medicine; Visit Provider Otolaryngology
DX: R13.10 Dysphagia, unspecified (principal)
CPT/HCPCS: 74220

== ENCOUNTER 2020-09-13 13:50 | Outpatient (RCR) | payer MEDICARE, SELFPAY | END 2020-09-13 13:55 | disposition home or self-care (01) | LOC: PT 13:50 | PROVIDERS: PCP Internal Medicine Adolescent Medicine; Visit Provider Internal Medicine Adolescent Medicine | DX: M54.5 Low back pain (principal) | CPT/HCPCS: 97110; 97163 ==

== ENCOUNTER → 2020-10-14 14:08 | Outpatient (CLI) | payer MEDICARE, SELFPAY ==
[2020-10-14 14:31] LABS: Basophils % 0.6 % (0.1-2.0); Eosinophils # 0.1 K/mm3 (0.0-0.4); Eosinophils % 2.3 % (0.1-12.0); Hemoglobin 14.5 g/dL (14.1-18.0); Lymphocytes # 1.2 K/mm3 (0.7-4.5); Lymphocytes % 21.4 % (10-50); Mean Corpuscular HGB Conc 32.8 g/dL (31.8-35.4); Mean Corpuscular Hemoglobin 29.3 pg (27.0-31.2); Mean Corpuscular Volume 89.4 fl (80-94); Mean Platelet Volume 8.3 fl (7.4-10.4); Monocytes # 0.4 K/mm3 (0.1-1.0); Monocytes % 7.5 % (1.7-9.3); Neutrophils # 3.7 K/mm3 (1.8-7.8); Neutrophils % 68.2 % (37.0-80.0); Platelet Count 268 K/mm3 (142-424); Red Blood Count 4.93 M/mm3 (4.60-6.20); Red Cell Distribution Width 14.6 % (11.5-17.5); White Blood Count 5.4 K/mm3 (4.8-10.8)
== END ==
PROVIDERS: Visit Provider Internal Medicine Cardiovascular Disease
DX: E78.5 Hyperlipidemia, unspecified (principal); G47.33 Obstructive sleep apnea (adult) (pediatric); I11.9 Hypertensive heart disease without heart failure; I48.91 Unspecified atrial fibrillation; K92.1 Melena; N18.30 Chronic kidney disease, stage 3 unspecified; R06.02 Shortness of breath; R13.10 Dysphagia, unspecified; R40.0 Somnolence; R94.31 Abnormal electrocardiogram [ECG] [EKG]; Z95.0 Presence of cardiac pacemaker
CPT/HCPCS: 36415; 85025

== ENCOUNTER → 2020-12-07 14:55 | Outpatient (CLI) | payer MEDICARE, SELFPAY | PROVIDERS: PCP Internal Medicine Adolescent Medicine; Visit Provider Physician Assistant | DX: R00.2 Palpitations (principal); R42 Dizziness and giddiness | CPT/HCPCS: 93306 ==

== ENCOUNTER → 2021-08-05 17:43 | Outpatient (CLI) | payer MEDICARE, SELFPAY ==
[2021-08-05 18:29] LABS: Basophils % 0.8 % (0.1-2.0); Eosinophils # 0.3 K/mm3 (0.0-0.4); Eosinophils % 4.7 % (0.1-12.0); Hematocrit 47.3 % (42.0-52.0); Lymphocytes # 1.2 K/mm3 (0.7-4.5); Lymphocytes % 21.1 % (10-50); Mean Corpuscular HGB Conc 31.8 g/dL (31.8-35.4); Mean Corpuscular Hemoglobin 30.3 pg (27.0-31.2); Mean Corpuscular Volume 95.3 fl (80-94); Mean Platelet Volume 9.4 fl (7.4-10.4); Monocytes # 0.4 K/mm3 (0.1-1.0); Monocytes % 6.9 % (1.7-9.3); Neutrophils # 3.8 K/mm3 (1.8-7.8); Neutrophils % 66.5 % (37.0-80.0); Platelet Count 294 K/mm3 (142-424); Red Blood Count 4.96 M/mm3 (4.60-6.20); Red Cell Distribution Width 13.8 % (11.5-17.5); White Blood Count 5.7 K/mm3 (4.8-10.8)
[2021-08-05 18:54] LABS: Alanine Aminotransferase 33 U/L (12-78); Albumin Level 3.9 g/dl (3.5-5.0); Albumin/Globulin Ratio 1.2 (1.1-1.8); Alkaline Phosphatase 122 U/L (38-126); Anion Gap 13.2 mEq/L (5-15); Aspartate Amino Transferase 33 U/L (17-59); Bilirubin,Total 0.7 mg/dl (0.2-1.3); Blood Urea Nitrogen 19 mg/dl (9-20); Calcium 9.3 mg/dl (8.4-10.2); Carbon Dioxide 30 mmol/L (22.0-30.0); Chloride 104 mmol/L (98-107); Estimated Glomerular Filt Rate 52 ml/min (>60); GFR (African American) 63 ML/MIN (>60); Globulin 3.2 g/dL (1.3-3.2); Glucose 86 mg/dl (74-100); Potassium 5.2 mmoL/L (3.5-5.1); Sodium 142 mmol/L (136-145); Total Protein,Serum 7.1 g/dl (6.3-8.2)
== END ==
PROVIDERS: Visit Provider Nurse Practitioner Family
DX: R10.32 Left lower quadrant pain (principal); K92.1 Melena
CPT/HCPCS: 80053; 85025

== ENCOUNTER → 2022-04-18 13:32 | Outpatient (CLI) | payer MEDICARE, SELFPAY ==
[2022-04-18 18:15] LABS: Chloride 107 mmol/L (98-107)
[2022-04-18 18:16] LABS: Potassium 4.5 mmoL/L (3.5-5.1); Sodium 138 mmol/L (136-145)
[2022-04-18 18:17] LABS: Basophils % 0.8 % (0.1-2.0); Eosinophils # 0.1 K/mm3 (0.0-0.4); Eosinophils % 3.6 % (0.1-12.0); Hematocrit 47.6 % (42.0-52.0); Hemoglobin 14.7 g/dL (14.1-18.0); Lymphocytes # 0.8 K/mm3 (0.7-4.5); Lymphocytes % 22.1 % (10-50); Mean Corpuscular HGB Conc 30.9 g/dL (31.8-35.4); Mean Corpuscular Hemoglobin 30.3 pg (27.0-31.2); Mean Platelet Volume 8.5 fl (7.4-10.4); Monocytes # 0.4 K/mm3 (0.1-1.0); Monocytes % 9.9 % (1.7-9.3); Neutrophils # 2.3 K/mm3 (1.8-7.8); Neutrophils % 63.5 % (37.0-80.0); Platelet Count 321 K/mm3 (142-424); Red Blood Count 4.85 M/mm3 (4.60-6.20); Red Cell Distribution Width 14.6 % (11.5-17.5); White Blood Count 3.6 K/mm3 (4.8-10.8)
[2022-04-18 18:18] LABS: Alanine Aminotransferase 40 U/L (12-78); Aspartate Amino Transferase 34 U/L (17-59); Blood Urea Nitrogen 14 mg/dl (9-20); Estimated Glomerular Filt Rate 57 ml/min (>60); GFR (African American) 68 ML/MIN (>60)
[2022-04-18 18:19] LABS: Albumin Level 4.1 g/dl (3.5-5.0); Albumin/Globulin Ratio 1.4 (1.1-1.8); Alkaline Phosphatase 116 U/L (38-126); Anion Gap 8.5 mEq/L (5-15); Bilirubin,Total 0.9 mg/dl (0.2-1.3); Calcium 9.2 mg/dl (8.4-10.2); Carbon Dioxide 27 mmol/L (22.0-30.0); Chol/HDL Ratio 6.8 (1-3.5); Cholesterol 177 mg/dl (140-200); Globulin 2.9 g/dL (1.3-3.2); Glucose 110 mg/dl (74-100); HDL Cholesterol 26 mg/dl (40-60); Triglycerides 142 mg/dl (30-150); VLDL Cholesterol 28 mg/dL (0-40)
[2022-04-18 18:30] LABS: Direct LDL Cholesterol 121.32 mg/dL (100-129)
== END ==
PROVIDERS: PCP Family Medicine; Visit Provider Family Medicine
DX: I10 Essential (primary) hypertension (principal); Z00.00 Encounter for general adult medical examination without abnormal findings; R53.83 Other fatigue
CPT/HCPCS: 80053; 80061; 84443; 85025

== ENCOUNTER 2024-06-12 07:40 | Outpatient (CLI) | payer MEDICARE, SELFPAY ==
--- NOTE | 2024-06-12 07:48 | CT_ITS ---
FINAL REPORT TECHNIQUE: Axial images through the chest was performed with and without contrast. Sagittal and coronal reformatted images were obtained and reviewed. This study was performed with techniques to keep radiation doses as low as reasonably achievable (ALARA). Individualized dose reduction techniques using automated exposure control or adjustment of mA and/or kV according to the patient's size were employed. CLINICAL HISTORY: HEMOPTYSIS WEIGHT LOSS FINDINGS: Left subclavian pacer is identified. There is a moderate hiatal hernia. The heart is normal in size. There is no pleural or pericardial effusion. There is mild scarring/fibrosis in the lung bases. Mild ground-glass opacities are seen in the lower lobes, may represent alveolitis. There are several less than 5 mm nodules in the right middle lobe. IMPRESSION: Mild scarring/fibrosis in the lung bases. Mild ground-glass opacities, may represent alveolitis. Reviewed, Interpreted and Dictated by Giuliano Rojas III, MD Transcribed by Chanda Johns Authenticated and [facility]
[2024-06-12 08:15] LABS: Blood Urea Nitrogen 24 mg/dl (9-20); Estimated Glomerular Filt Rate 48 ml/min (>60); GFR (African American) 58 ML/MIN (>60)
[2024-06-12] MEDS: SODIUM CHLORIDE 0.9% 10ML SYR (RAD ONLY) 10 ML IV (08:52)
[2024-06-12] MEDS: IOPAMIDOL-370 (76%);100ML BOTTLE 75 ML IV (08:52)
== END 2024-06-12 23:59 | disposition home or self-care (01) ==
LOC: RAD 07:41
PROVIDERS: PCP Internal Medicine Adolescent Medicine; Visit Provider Internal Medicine Adolescent Medicine
DX: R04.2 Hemoptysis (principal); R63.4 Abnormal weight loss
CPT/HCPCS: 36415; 71270; 82565; 84520; Q9967

== ENCOUNTER 2024-08-20 11:08 | Outpatient (CLI) | payer MEDICARE, SELFPAY ==
--- OUTSIDE RECORDS SUMMARY | 2024-08-20 11:10 | XMS_ITS | Encounter Summary ---
Author Organization [facility] Address [address] [place] [address] Care Team Providers Care Mobile Designer Name Role Phone Tye Medina MD Primary Care Provider [phone] Reason for Referral * Surgical (Routine) - Closed Specialty Diagnoses / Procedures Referred By Dacia martin Referred To Contact Diagnoses Hiatal hernia with GERD Procedures Case Request Franck Camargo MD [address] [place] [address] Phone: tel: fax: [facility] [address] [place] [address] Referral ID Status Reason Start Date Expiration Date Visits Re quested Visits Authorized [id number] Closed 10/18/2017 10/22/2017 1 1 Encounter Details Date Type Department Care Team (Late st Contact Info) Description 10/09/2017 4:00 PM EST Consult [facility] BARIATRIC SURGERY [address] [place] [address] Franck Camargo MD [address] [place] [address] Hiatal hernia with GERD (Primary Dx) Social History Tobacco Use Types Packs/Day Years Used Date Smoking Tobacco: Former Cigarettes Q uit: 2000 Smokeless Tobacco: Never Alcohol Use Standard Drinks/Week Comments Yes 10 (1 standard drink = 0.6 oz pure alcohol) on the weekends, especially in the summer Sex and Gender Information Value Date Recorded Sex Assigned at Not on file Legal Sex Male 2:14 PM EST Gender Identity Not on file Sexual Orientation Not on file documented as of this encounter Last Filed Vital Signs Vital Sign Reading Time Taken Comments Blood Pressure 132/82 10/09/2017 3:25 PM EST Pulse 76 10/09/2017 3:25 PM EST Temperature 36.6 ??C (97.9 ??F) 10/09/2017 3:25 PM ES T Respiratory Rate 18 10/09/2017 3:25 PM EST Oxygen Saturation 99% 10/09/2017 3:25 PM EST Inhaled Oxygen Concentration - - Weight 108 kg (238 lb) 10/09/2017 3:25 PM EST Height 182.9 cm (6') 10/09/2017 3:25 PM EST Body Mass Index 32.28 10/09/2017 3:25 PM EST documented in this encounter Progress Notes * Franck Camargo MD - 10/09/2017 4:00 PM EST [facility] Bariatric Surgery [address] [facility] [address] Patient Name: Timur Uribe. Date of : 1965 Date of Visit: 10/09/2017 CC: ASHKAN, Hiatal hernia HPI: 52 yo disabled obese WM referred by Dr. Garza for evaluation of ASHKAN/HH not well controlledwith medical therapy, consider Eneida fundoplication. Pt's mother w him for entire eval. Pt w long-standing ASHKAN sx's, chronic cough, no dysphagia. UGI Hair Mem 08/28/17 small HH, no ASHKAN demonstrated. Denies regurg. EGD a few weeks ago at [place], will review report. On Prilosec 20 mg daily, Zantac 150 mg po BID. Says EGD showed HH and ulcers. Told to stop some meds, can't recall which. Sayshas CKD III, one of reasons for disability 4 years ago, other being DDD. Prev worked for [employer]. 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 Dew Past Medical History: Diagnosis Date ??? Anxiety ??? CKD (chronic kidney disease), stage III ??? DDD (degenerative disc disease), lumbosacral ??? Depression ??? HLD (hyperlipidemia) ??? HTN (hypertension) ??? Obesity (BMI 30.0-34.9) ??? RLS (restless legs syndrome) ??? Seasonal allergies Past Surgical History: Procedure Laterality Date ??? TUMOR REMOVAL 2015 Back Denies pers hx bleeding/coagulopathy. Mother had DVT/PE after GB surgery years ago Current Outpatient Prescriptions: ??? aspirin 81 MG EC tablet, Take 81 mg by mouth Daily., Disp: , Rfl: ??? atorvastatin (LIPITOR) 40 MG tablet, , Disp: , Rfl: ??? cetirizine (zyrTEC) 10 MG tablet, Take 10 mg by mouth Daily., Disp: , Rfl: ??? DULoxetine (CYMBALTA) 60 MG capsule, , Disp: , Rfl: ??? fluticasone (FLONASE) 50 MCG/ACT nasal spray, , Disp: , Rfl: ??? gabapentin (NEURONTIN) 300 MG capsule, , Disp: , Rfl: ??? losartan (COZAAR) 100 MG tablet, , Disp: , Rfl: ??? meloxicam (MOBIC) 15 MG tablet, , Disp: , Rfl: ??? nadolol (CORGARD) 40 MG tablet, , Disp: , Rfl: ??? omeprazole (priLOSEC) 20 MG capsule, , Disp: , Rfl: ??? pantoprazole (PROTONIX) 40 MG EC tablet, , Disp: , Rfl: ??? ranitidine (ZANTAC) 150 MG capsule, , Disp: , Rfl: ??? rOPINIRole (REQUIP) 2 MG tablet, , Disp: , Rfl: ??? sucralfate (CARAFATE) 1 g tablet, , Disp: , Rfl: ??? tamsulosin (FLOMAX) 0.4 MG capsule 24 hr capsule, , Disp: , Rfl: ??? traZODone (DESYREL) 100 MG tablet, , Disp: , Rfl: ??? VASCEPA 1 g capsule capsule, , Disp: , Rfl: ??? vitamin D (ERGOCALCIFEROL) 41717 units capsule capsule, Take 50,000 Units by mouth 1 (One) TimePer Week., Disp: , Rfl: No Known Allergies Family History Problem Relation Age of Onset ??? Diabetes Mother ??? Congenital heart disease Mother ??? ALS Father Social History Social History ??? Marital status: Spouse name: N/A ??? Number of children: N/A ??? Years of education: N/A Occupational History ??? Not on file. Social History Main Topics ??? Smoking status: Former Smoker Quit date: 1999 ??? Smokeless tobacco: Never Used ??? Alcohol use 6.0 oz/week 10 Cans of beer per week Comment: on the weekends, especially in the summer ??? Drug use: No ??? Sexual activity: Not on file Other Topics Concern ??? Not on file Social History Narrative ??? No narrative on file Review of Systems BP 132/82 (BP Location: Left arm, Patient Position: Sitting, Cuff Size: Large Adult) Pulse 76 Temp 97.9 ??F (36.6 ??C) (Temporal Artery ) Resp 18 Ht 72 cm (28.35 ) Wt 108 kg (238 lb) OvC177% BMI 208.26 kg/m2 Physical Exam Constitutional: He is oriented to person, place, and time. He appears well- developed and well-nourished. No distress. HENT: Head: Normocephalic and atraumatic. Mouth/Throat: Oropharynx is clear and moist. No oropharyngeal exudate. Eyes: EOM are normal. Pupils are equal, round, and reactive to light. Neck: Normal range of motion. Neck supple. Carotid bruit is not present. No thyromegaly present. Cardiovascular: Normal rate, regular rhythm and normal heart sounds. No murmur heard. Pulmonary/Chest: Effort normal and breath sounds normal. No respiratory distress. He has no wheezes. Abdominal: Soft. Bowel sounds are normal. He exhibits no distension and no mass. There is no hepatosplenomegaly. There is no tenderness. No hernia. Rectus diastasis. Old trauma injury scar 5 mm above and left umbo Musculoskeletal: Normal range of motion. He exhibits no edema. Lymphadenopathy: He has no cervical adenopathy. Neurological: He is alert and oriented to person, place, and time. Skin: Skin is warm and dry. He is not diaphoretic. Psychiatric: He has a normal mood and affect. His behavior is normal. Judgment and thought content normal. Assessment: ASHKAN/HH somewhat responsive to medical therapy. Wants to be off PPI's, sx's not controlled w high dose H2Bl. CKD. HLD. Depression, obesity (not morbid obesity). Prev signif HFCS usage and 10 beers/weekend - at risk for liver dz. Risk factors CAD - obesity, HTN, HLD. UGI [facility] shows HH w/o reflux. EGD Pardeep Carpenter MD 09/13/[facility] - moderate streaking gastritis, antral diverticulum (less likely ulceration), shallow gastric body ulceration. Says fairly significant sliding hiatal hernia , moderate patchy gastritis. No mention Rocha's or strictures, didn't bx DE, only antrum, path reactive gastropathy. Plan: EGD w/o apparent complications of ASHKAN. Pt/mother aware that Eneida not a required operation, only to control sx's or help get off meds. R/B/A rx were discussed incl but not limited to bleeding, infection, , [place], stroke, recurrent reflux and/or hiatal hernia, gas bloat, persistent dysphagia, bowel or organ injury, VTE/pulm embolism, etc as outlined in our long consent form and wishes to proceed with lap Eneida Fundoplication and lap HHR. Franck Camargo MD documented in this encounter Plan of Treatment Not on file documented as of this encounter Visit Diagnoses Diagnosis Hiatal hernia with GERD- Primary documented in this encounter Care Teams Mobile Designer Relationship Specialty Start Date End Date Tye Medina MD [facility] [address] [facility] [address] [place] [address] PCP - General Adolescent Medicine 10/09/17 documented as of this encounter
--- OUTSIDE RECORDS SUMMARY | 2024-08-20 11:10 | XMS_ITS | Encounter Summary ---
Author Organization Healthcare Address [address] [place] [address] Care Team Providers Care Operating Engineer Apprentice Name Role Phone Unavailable Primary Care Provider Unavailabl e Encounter Details Date Type Department Care Team (Late st Contact Info) Description 08/24/2016 [facility] Vitals Encounter [facility] OUTPATIENT CONVERSIONS [address] [place] [address] ProviderVargas MD [address] [place] [address] Social History Tobacco Use Types Packs/Day Years Used Date Smoking Tobacco: Never Assessed Sex and Gender Information Value Date Recorded Sex Assigned at Not on file Legal Sex Male 8:35 PM EDT Gender Identity Not on file Sexual Orientation Not on file documented as of this encounter Last Filed Vital Signs Vital Sign Reading Time Taken Comments Blood Pressure - - Pulse - - Temperature - - Respiratory Rate - - Oxygen Saturation - - Inhaled Oxygen Concentration - - Weight 104 kg (230 lb 0.1 oz) 08/24/2016 2:41 PM EST Height 182.9 cm (6') 08/24/2016 2:41 PM EST Body Mass Index 31.19 08/24/2016 2:41 PM EST documented in this encounter Plan of Treatment Not on file documented as of this encounter Visit Diagnoses Not on filedocumented in this encounter
--- OUTSIDE RECORDS SUMMARY | 2024-08-20 11:10 | XMS_ITS | Encounter Summary ---
Author Organization [facility] Address [address] [place] [id number] Care Team Providers Care Captain Assistant Name Role Phone Tye Medina MD Primary Care Provider [phone] Encounter Details Date Type Department Care Team (Late st Contact Info) Description 10/26/2017 2:00 PM EST Office Visit [facility] BARIATRIC SURGERY [address] [place] [address] Cris Hernandez PA-C Hiatal hernia with GERD (Primary Dx) Social [...] Sign Reading Time Taken Comments Blood Pressure 111/72 10/26/2017 1:47 PM EST Pulse 64 10/26/2017 1:47 PM EST Temperature 36.8 ??C (98.2 ??F) 10/26/2017 1:47 PM ES T Respiratory Rate 18 10/26/2017 1:47 PM EST Oxygen Saturation 99% 10/26/2017 1:47 PM EST Inhaled Oxygen Concentration - - Weight 107 kg (236 lb) 10/26/2017 1:47 PM EST Height 182.9 cm (6') 10/26/2017 1:47 PM EST Body Mass Index 32.01 10/26/2017 1:47 PM EST documented in this encounter Progress Notes * Cris Hernandez PA-C - 10/26/2017 2:00 PM EST [facility] Bariatric Surgery [address] [facility] [address] Patient Name: Timur Uribe. Date of : 1965 Date of Visit: 10/26/2017 Reason for Visit: POD#7 HPI: Timur Uribe is a 52 y.o. male s/p paraesophageal HHR/ lap Eneida fundoplication by Dr. Camargo 10/19/17. Discharged on POD#1 with no concerns. He does c/o dysphagia with every meal. Goes down, but is slow. Eating mostly chili, some pudding, jello. He had one episode of BRB with BM on toilet paper. He has had this issue off and on in the past. Denies melena. Taking lortab BID. Denies constipation or diarrhea. Denies fevers, chills, abdominal pain, nausea, vomiting, reflux, SOA, leg swelling. Drinking 32-48 oz water/ day. Past Medical History: Diagnosis Date ??? Anxiety ??? BPH (benign prostatic hyperplasia) ??? CKD (chronic kidney disease), stage III ??? DDD (degenerative disc disease), lumbosacral ??? Degenerative disc disease, lumbar ??? Depression ??? GERD (gastroesophageal reflux disease) ??? Hiatal hernia ??? HLD (hyperlipidemia) ??? HTN (hypertension) ??? Obesity (BMI 30.0-34.9) ??? RLS (restless legs syndrome) ??? Seasonal allergies ??? Stomach ulcer ??? Wears prescription eyeglasses Past Surgical History: Procedure Laterality Date ??? CARDIAC CATHETERIZATION ??? COLONOSCOPY ??? ENDOSCOPY ??? ENEIDA FUNDOPLICATION N/A 10/18/2017 Procedure: ENEIDA FUNDOPLICATION LAPAROSCOPIC, HIATAL HERNIA REPAIR LAPAROSCOPIC; Surgeon: Franck Camargo MD; Location: [facility]; Service: ??? TUMOR REMOVAL 2014 Back Outpatient Prescriptions Marked as Taking for the 10/26/17 encounter (Office Visit) with Cris Hernandez PA-C Medication Sig Dispense Refill ??? aspirin 81 MG tablet Take 81 mg by mouth. ??? atorvastatin (LIPITOR) 40 MG tablet Take 40 mg by mouth Every Night. ??? cetirizine (zyrTEC) 10 MG tablet Take 10 mg by mouth Daily. ??? DULoxetine (CYMBALTA) 60 MG capsule Take 60 mg by mouth Daily. ??? fluticasone (FLONASE) 50 MCG/ACT nasal spray 2 sprays into each nostril Daily. ??? gabapentin (NEURONTIN) 300 MG capsule Take 300 mg by mouth 3 (Three) Times a Day. ??? HYDROcodone-acetaminophen (NORCO) 7.5-325 MG per tablet Take 1 tablet by mouth Every 4 (Four) Hours As Needed for Moderate Pain for up to 10 days. 30 tablet 0 ??? losartan (COZAAR) 100 MG tablet Take 100 mg by mouth Daily. ??? meloxicam (MOBIC) 15 MG tablet Take 15 mg by mouth Daily. ??? nadolol (CORGARD) 40 MG tablet Take 40 mg by mouth Daily. ??? pantoprazole (PROTONIX) 40 MG EC tablet Take 40 mg by mouth Daily. ??? rOPINIRole (REQUIP) 2 MG tablet Take 2 mg by mouth Every Night. ??? sucralfate (CARAFATE) 1 g tablet Take 1 g by mouth 2 (Two) Times a Day. ??? tamsulosin (FLOMAX) 0.4 MG capsule 24 hr capsule 1 capsule Daily. ??? traZODone (DESYREL) 100 MG tablet Take 100 mg by mouth Every Night. ??? VASCEPA 1 g capsule capsule 1 g 2 (Two) Times a Day With Meals. ??? vitamin D (ERGOCALCIFEROL) 86358 units capsule capsule Take 50,000 Units by mouth 1 (One) Time Per Week. No Known Allergies Social History Social History ??? Marital status: [...] ??? Drug use: No ??? Sexual activity: Defer Other Topics Concern ??? Not on file Social History Narrative Vitals: 10/26/17 1347 BP: 111/72 Pulse: 64 Resp: 18 Temp: 98.2 ??F (36.8 ??C) SpO2: 99% Weight 107 kg (236 lb) Body mass index is 32.01 kg/(m^2). Physical Exam Constitutional: He is oriented to person, place, and time. He appears well- developed and well-nourished. HENT: Head: Normocephalic and atraumatic. Cardiovascular: Normal rate, regular rhythm and normal heart sounds. Pulmonary/Chest: Effort normal and breath sounds normal. Abdominal: Soft. Bowel sounds are normal. He exhibits no mass. There is no tenderness. Incisions healing well Neurological: He is alert and oriented to person, place, and time. Skin: Skin is warm and dry. Psychiatric: He has a normal mood and affect. His behavior is normal. Assessment: ICD-10-CM ICD-9-CM 1. Hiatal hernia with GERD K21.9 530.81 K44.9 553.3 Plan: Doing well. Discussed backing off diet/ advancing diet slowly, as tolerated. Lifting restrictions of 25lb x 3 weeks post op. No need for further followup unless problems/ issues arise. In that case, please call or RTC as needed. Followup with PCP regarding BRBPR. Discussed adding stool softener/ miralax with pain meds for softer stools. documented in this encounter Plan of Treatment Not on file documented as of this encounter Visit Diagnoses Diagnosis Hiatal hernia with GERD- Primary documented in this encounter Care Teams Captain Assistant Relationship Specialty Start Date End Date Tye Medina MD [address] [facility] [address] [place] [address] PCP - General Adolescent Medicine 10/09/17 documented as of this encounter
--- OUTSIDE RECORDS SUMMARY | 2024-08-20 11:10 | XMS_ITS | Encounter Summary ---
Author Organization [facility] Address [address] [place] [id number] Care Team Providers Care Cnc Wood Lathe Operator Name Role Phone Tye Medina MD Primary Care Provider [phone] Reason for Visit * Auth/Cert Specialty Diagnoses / Procedures Referred By Dacia martin Referred To Contact Diagnoses Hiatal hernia with GERD Hiatal hernia with GERD [K21.9, K44.9] Procedures DIMA FUNDOPLICATION LAPAROSCOPIC, HIATAL HERNIA REPAIR LAPAROSCOPIC Referral ID Status Reason Start Date Expiration Date Visits Re quested Visits Authorized [id number] 1 1 Encounter Details Date Type Department Care Team (Late st Contact Info) Description 10/18/2017 7:15 AM EST - 10/18/2017 9:19 AM EST Surgery [facility] [address] [place] [address] Franck Camargo MD [address] [place] [address] DIMA FUNDOPLICATION LAPAROSCOPIC, HIATAL HERNIA REPAIR LAPAROSCOPIC Social History Tobacco Use Types Packs/Day Years [...] Sign Reading Time Taken Comments Blood Pressure 142/82 10/18/2017 9:16 AM EST Pulse 73 10/18/2017 9:16 AM EST Temperature 36.2 ??C (97.2 ??F) 10/18/2017 9:16 AM ES T Respiratory Rate 18 10/18/2017 9:16 AM EST Oxygen Saturation 96% 10/18/2017 9:16 AM EST Inhaled Oxygen Concentration - - Weight - - Height - - Body Mass Index - - documented in this encounter Discharge Instructions * Attachments The following attachments cannot be sent through Care Everywhere. * HIATAL HERNIA ([place]) * GASTROESOPHAGEAL REFLUX DISEASE ADULT [id number] ([place]) * LAPAROSCOPIC DIMA FUNDOPLICATION CARE AFTER ([place]) documented in this encounter Medications at Time of Discharge aspirin 81 MG tablet Take 81 mg by mouth. atorvastatin (LIPITOR) 40 MG tablet Take 40 mg by mouth Every Night. 08/19/2017 cetirizine (zyrTEC) 10 MG tablet Take 10 mg by mouth Daily. DULoxetine (CYMBALTA) 60 MG capsule Take 60 mg by mouth Daily. 08/10/2017 fluticasone (FLONASE) 50 MCG/ACT nasal spray 2 sprays into each nostril Daily. 07/27/2017 losartan (COZAAR) 100 MG tablet Take 100 mg by mouth Daily. 09/23/2017 meloxicam (MOBIC) 15 MG tablet Take 15 mg by mouth Daily. 09/13/2017 pantoprazole (PROTONIX) 40 MG EC tablet Take 40 mg by mouth Daily. 09/13/2017 rOPINIRole (REQUIP) 2 MG tablet Take 2 mg by mouth Every Night. 09/24/2017 tamsulosin (FLOMAX) 0.4 MG capsule 24 hr capsule 1 capsule Daily. 09/23/2017 traZODone (DESYREL) 100 MG tablet Take 100 mg by mouth Every Night. 08/10/2017 gabapentin (NEURONTIN) 300 MG capsule Take 300 mg by mouth 3 (Three) Times a Day. 09/24/2017 01/31/2019 nadolol (CORGARD) 40 MG tablet Take 40 mg by mouth Daily. 08/20/2017 01/31/2019 sucralfate (CARAFATE) 1 g tablet Take 1 g by mouth 2 (Two) Times a Day. 09/13/2017 01/31/2019 VASCEPA 1 g capsule capsule 1 g 2 (Two) Times a Day With Meals. 08/21/2017 01/31/2019 vitamin D (ERGOCALCIFEROL) 57926 units capsule capsule Take 50,000 Units by mouth 1 (One) Time Per Week. 01/31/2019 HYDROcodone-acet aminophen (NORCO) 7.5-325 MG per tablet Take 1 tablet by mouth Every 4 (Four) Hours As Needed for Moderate Pain for up to 10 days. 30 tablet 10/19/2017 10/29/2017 documented as of this encounter Progress Notes * Franck Camargo MD - 10/19/2017 3:44 PM EST Cc: POD#1 His 's in the room. He ate some chicken earlier and it got stuck and he had to put his finger down his throat and vomit. He does recall that I told him to only eat soft foods for the next couple of weeks. He says his and bleeding voiding well. No pulmonary complaints. Resting some flatus no bowel movement. He says everything else is going down fine. No ASHKAN sx's - notices change from preop. Nofever or tachycardia pulse 66 blood pressure 124/77 UO 150 - NR is no apparent distress and is soft, nontender, nondistended, bowel sounds are active. Wounds look okay CMP normal to for glucose of 131 creatinine of 1.80 his baseline is unknown alk phosphatase 121 hisGFR is 40 once again baseline unknown CBC is unremarkable with a white count of 7. 6/ segs 16 lymphs 8 monocytes H&H of 13.4 and 41 Imp: doing okay Plan: Discharge home. Discharge instructions were discussed. See orders * Merissa Aldana RN - 10/19/2017 2:46 PM EST Discharge Planning Assessment [facility] Patient Name: Timur Uribe Today's Date: 10/19/2017 Admit Date: 10/18/2017 Discharge Needs Assessment 10/19/17 1442 Living Environment Lives With spouse Living Arrangements house Home Accessibility no concerns Stair Railings at Home none Type of Financial/Environmental Concern none Transportation Available car;family or friend will provide Living Environment Provides Primary Care For no one Primary Care Provided By spouse/significant other Quality Of Family Relationships supportive Able to Return to Prior Living Arrangements yes Discharge Needs Assessment Concerns To Be Addressed no discharge needs identified;denies needs/concerns at this time Readmission Within The Last 30 Days no previous admission in last 30 days Anticipated Changes Related to Illness none Equipment Currently Used at Home cane, straight Equipment Needed After Discharge none Discharge Disposition home or self-care Discharge Plan 10/19/17 1445 Case Management/Social Work Plan Plan Home at discharge Patient/Family In Agreement With Plan yes Additional Comments Patient lives in [facility] with spouse. 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 Physician Information Name Tye Medina Functional Status 10/19/17 1443 Functional Status Current Current Functional Level Comment Please see nursing notes Functional Status Prior Ambulation 0-->independent Transferring 0-->independent Toileting 0-->independent Bathing 0-->independent Dressing 0-->independent Eating 0-->independent Communication 0-->understands/communicates without difficulty Swallowing 0-->swallows foods/liquids without difficulty IADL Medications independent Meal Preparation independent Housekeeping independent Laundry independent Shopping independent Oral Care independent Activity Tolerance Current Activity Limitations none Usual Activity Tolerance good Current Activity Tolerance moderate Cognitive/Perceptual/Developmental Current Mental Status/Cognitive Functioning no deficits noted Employment/Financial Employment/Finance Comments [employer] Psychosocial None Abuse/Neglect None Legal None Substance Abuse None Patient Forms None Merissa Aldana, SOMMER documented in this encounter H&P Notes * Franck Camargo MD - 10/18/2017 7:35 AM EST H&P reviewed. The patient was examined and there are no changes to the H&P. Source Note - Franck Camargo MD - 10/09/2017 4:00 PM EST [facility] Bariatric Surgery [address] [facility] [address] Patient Name: Timur Uribe. Date of : 1965 Date of Visit: 10/09/2017 CC: ASHKAN, Hiatal hernia HPI: 52 yo disabled obese WM referred by Dr. Garza for evaluation of ASHAKN/HH not well controlledwith medical therapy, consider Dima fundoplication. Pt's mother w him for entire eval. Pt w long-standing ASHKAN sx's, chronic cough, no dysphagia. UGI Hair Mem 08/28/17 small HH, no ASHKAN demonstrated. Denies regurg. EGD a few weeks ago at [facility], will review report. On Prilosec 20 mg daily, Zantac 150 mg po BID. Says EGD showed HH and ulcers. Told to stop some meds, can't recall which. Sayshas CKD III, one of reasons for disability 4 years ago, other being DDD. Prev worked for [employer]. 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 [employer] Past Medical History: Diagnosis Date ??? Anxiety ??? CKD (chronic kidney disease), stage III ??? DDD (degenerative disc disease), lumbosacral ??? Depression ??? HLD (hyperlipidemia) ??? HTN (hypertension) ??? Obesity (BMI 30.0-34.9) ??? RLS (restless legs syndrome) ??? Seasonal allergies Past Surgical History: Procedure Laterality Date ??? TUMOR REMOVAL 2014 Back Denies pers hx bleeding/coagulopathy. Mother had [...] Disp: , Rfl: ??? vitamin D (ERGOCALCIFEROL) 89758 units capsule capsule, Take 50,000 Units by [...] (28.35 ) Wt 108 kg (238 lb) [id number]% BMI 208.26 kg/m2 Physical Exam Constitutional: He [...] factors CAD - obesity, HTN, HLD. UGI [facility] shows HH w/o reflux. EGD Pardeep Carpenter MD 09/13/17 [facility] - moderate streaking gastritis, antral diverticulum (less likely ulceration), shallow gastric body ulceration. Says fairly significant sliding hiatal hernia , moderate patchy gastritis. No mention Rocha's or strictures, didn't bx DE, only antrum, path reactive gastropathy. Plan: EGD w/o apparent complications of ASHKAN. Pt/mother aware that Dima not a required operation, only to control sx's or help get off meds. R/B/A rx were discussed incl but not limited to bleeding, infection, , IL, stroke, recurrent reflux and/or hiatal hernia, gas bloat, persistent dysphagia, bowel or organ injury, VTE/pulm embolism, etc as outlined in our long consent form and wishes to proceed with lap Dima Fundoplication and lap HHR. Franck Camagro MD documented in this encounter Nursing Notes * Fanny Ornelas RN - 10/19/2017 2:24 PM EST Problem: Patient Care Overview (Adult) Goal: Adult Individualization and Mutuality Outcome: Ongoing (interventions implemented as appropriate) Goal: Discharge Needs Assessment 10/19/17 1423 Discharge Needs Assessment Concerns To Be Addressed no discharge needs identified Discharge Disposition home or self-care Problem: Perioperative Period (Adult) Goal: Signs and Symptoms of Listed Potential Problems Will be Absent or Manageable (Perioperative Period) Outcome: Ongoing (interventions implemented as appropriate) 10/19/17 1423 Perioperative Period Problems Assessed (Perioperative Period) all Problems Present (Perioperative Period) pain * Jovana Posadas RN - 10/19/2017 4:21 AM EST Problem: Patient Care Overview (Adult) Goal: Plan of Care Review Outcome: Ongoing (interventions implemented as appropriate) 10/19/17 0417 Coping/Psychosocial Response Interventions Plan Of Care Reviewed With patient Patient Care Overview Progress progress toward functional goals as expected Outcome Evaluation Outcome Summary/Follow up Plan Pt has tolerated PO intake well and slept throughout the night. No c/o pain. * Ban Sam RN - 10/18/2017 1:10 PM EST Problem: Perioperative Period (Adult) Goal: Signs and Symptoms of Listed Potential Problems Will be Absent or Manageable (Perioperative Period) Outcome: Ongoing (interventions implemented as appropriate) 10/18/17 1309 Perioperative Period Problems Assessed (Perioperative Period) all Problems Present (Perioperative Period) pain * Yesi Navarrete RN - 10/18/2017 6:44 AM EST Problem: Perioperative Period (Adult) Goal: Signs and Symptoms of Listed Potential Problems Will be Absent or Manageable (Perioperative Period) Outcome: Ongoing (interventions implemented as appropriate) documented in this encounter OR Notes * Op Note - Fracnk Camargo MD - 10/18/2017 9:02 AM EST Preoperative Diagnosis: Hiatal hernia with GERD ?? Postoperative Diagnosis: Paraesophageal hiatal hernia with GERD ?? Procedure: Paraesophageal hiatal hernia repair and laparoscopic Dima fundoplication ? Surgeon: Tanner Camargo MD ?? Anesthesia: GETA ?? EBL: minimal ?? Fluids: Crystalloid ?? Specimens: None ?? Drains: None ?? Counts: Correct ?? Complications: None ?? Indications: This is a 52-year-old white male who presents for elective Lap HHR (seen on outlying EGD) and Dima fundoplication. R/B/A Rx were discussed and he wishes to proceed. ?? Operative technique: ?? The patient was brought to the operating room, and placed supine upon the operating room table. SCDhose were placed, he underwent uneventful general endotracheal anesthesia per the anesthesiology staff, he received IV Ancef, and his abdomen was prepped and draped with ChloraPrep in a sterile fashion, an Ioban was used as well, a Vences catheter was not placed. ?? The peritoneal cavity was entered in the upper abdomen to the left of midline using an 5 mm trocar and an Optiview technique and the abdomen was insufflated to a pressure of 15 mmHg with CO2 gas. There was very little subcutaneous fat, but a large amount of intra-abdominal fat. Exploratory laparoscopy revealed no evidence of injury from the entrance technique, a normal appearing liver, an opaque but o/w normal appearing gallbladder without adhesions to surrounding structures, no other abnormalities noted. Remaining fascial splitting trocars were placed under direct viz including 3 additional 5 mm trocars - left mid abdomen, RUQ and left subcostal positions. ?? Through a stab incision in the epigastrium and Khushboo retractors used to elevate the left lobe of the liver exposing the hiatus. There was a surprisingly very unimpressive hiatal hernia seen from this view - later in the case the large posterior paraesophageal hernia with fat was encountered. Beginning approximately a fourth of the way around the greater curvature the stomach, the short gastric vessels were taken down with the harmonic scalpel to expose the left khalif. This was technically difficult given the large multi-lobulated splenic fat pad and fairly extensive adhesions of the cardiaand fundus to the retroperitoneum and pancreas. There appeared to be a fatty posterior paraesoph HHfrom this left sided view, but it was very apparent after opening the pars flaccida later in the case. ?? The hernia sac was incised along the base of the left khalif and this was extended up and across the phrenoesophageal membrane. The pars flaccida was incised above and below the hepatic branch of the vagus nerve preserving this and a very small replaced hepatic vessel. Now the moderate sized post paraesoph fatty hiatal hernia could be well seen and was photodocumented. The hernia sac was incised along the base of the right khalif and this was extended up and across the phrenoesophageal membrane. The hernia sac and it's contents were dissected out of the mediastinum and reduced below the level of the crura. The GE junction was then lengthened to well below the level of the crura by dissecting areolar tissue well into the mediastinum. A 1/2 inch miguel a drain was used temporarily for esophagealretraction. The anterior and posterior vagus nerves were preserved. Because of the large amount of ana m-gastric and ana m-hiatal fat, an additional 5 mm trocar was placed to the right of midline in the upper abdomen to retract the fat to allow exposure to suture the hiatus. The hiatal hernia repair was then performed posteriorly using four interrupted 0-silk suture with good result. There was goodcrural fascia and it came together without tension. It was felt that mesh reinforcement was not needed. Photodocumentation before and after repair was obtained. ?? The fundus was then passed behind the esophagus until it rested on the right of the esophagus without tension and didn't slip back to the left. Photodocumentation was obtained. The 360 degree floppy Dima fundoplication was then performed using three 2-0 silk interrupted suture. After placement ofthe first suture, I elevated it showing a good cm or more elevation above the esophagus (loose/floppy). The inferior most 3rd suture included a bite of the anterior esophageal wall at the GE junctionand away from the anterior vagus nerve. Upon completion, the Dima fundoplication rested nicely and photodocumentation was obtained. The Khushboo retractor was removed. All trocars were removed under direct visualization, no bleeding noted from their sites. Skin and deeper tissues were infiltrated with local anesthetic and skin in each incision was closed with 3-0 monocryl plus suture in an interrupted subcuticular stitch followed by skin-a-fix. The patient tolerated the procedure well without complication, was taken to the recovery room in stable condition. ?? * Brief Op Note - Franck Camargo MD - 10/18/2017 9:01 AM EST DIMA FUNDOPLICATION LAPAROSCOPIC Progress Note Timur Uribe 10/18/2017 Pre-op Diagnosis: Hiatal hernia with GERD [K21.9, K44.9] Post-Op Diagnosis Codes: * Paraesophageal hernia [K44.9] Procedure/CPT?? Codes: LA LAP, REPAIR PARAESOPHAGEAL HERNIA, INCL FUNDOPLASTY W/O MESH [67139] Procedure(s): DIMA FUNDOPLICATION LAPAROSCOPIC, HIATAL HERNIA REPAIR LAPAROSCOPIC Surgeon(s): Franck Camargo MD Anesthesia: General Staff: Hot Dimpling Machine Operator: Carmen Marin RN Scrub Person: Arianna Bautista Drum Sealer: Violeta Bustamante Estimated Blood Loss: minimal Urine Voided: * No values recorded between 10/18/2017 7:43 AM and 10/18/2017 9:01 AM * Specimens: None Drains: Findings: posterior paraesoph hiatal hernia with fat Complications: none Franck Camargo MD Date: 10/18/2017 Time: 9:01 AM documented in this encounter Plan of Treatment Scheduled Orders Name Type Priority Associated Diagnoses Orde r Schedule Incentive Spirometer / Coughing Exercises at Least 4 Times / Day for 2 Weeks Respiratory Care Routine Hiatal hernia with GERD Ordered: 10/19/2017 documented as of this encounter Procedures Procedure Name Priority Date/Time Associated Diagnosis Comments CBC WITH AUTO DIFFERENTIAL Routine 10/19/2017 7:31 AM EST CBC AND DIFFERENTIAL Routine 10/19/2017 7:31 AM EST COMPREHENSIVE METABOLIC PANEL Routine 10/19/2017 7:31 AM EST TROPONIN STAT 10/18/2017 11:05 AM EST ECG 12-LEAD STAT 10/18/2017 10:59 AM EST DIMA FUNDOPLICATION LAPAROSCOPIC 10/18/2017 7:28 AM EST Paraesophageal hernia Special Needs REQUESTS ROOM 20 documented in this encounter Results * (ABNORMAL) CBC Auto Differential (10/19/2017 7:31 AM EST) WBC 7.61 3.50 - 10.80 10*3/mm3 10/19/2017 8:39 AM EST [facility] RBC 4.54 4.20 - 5.76 10*6/mm3 10/19/2017 8:39 AM EST [facility] Hemoglobin 13.4 13.1 - 17.5 g/dL 10/19/2017 8:39 AM EST [facility] Hematocrit 40.9 38.9 - 50.9 % 10/19/2017 8:39 AM EST [facility] MCV 90.1 80.0 - 99.0 fL 10/19/2017 8:39 AM EST [facility] MCH 29.5 27.0 - 31.0 pg 10/19/2017 8:39 AM EST [facility] MCHC 32.8 32.0 - 36.0 g/dL 10/19/2017 8:39 AM EST [facility] RDW 13.1 11.3 - 14.5 % 10/19/2017 8:39 AM EST [facility] RDW-SD 42.6 37.0 - 54.0 fl 10/19/2017 8:39 AM EST [facility] MPV 9.6 6.0 - 12.0 fL 10/19/2017 8:39 AM [facility] Platelets 259 150 - 450 10*3/mm3 10/19/2017 8:39 AM [facility] Neutrophil % 75.4(H) 41.0 - 71.0 % 10/19/2017 8:39 AM [facility] Lymphocyte % 16.2(L) 24.0 - 44.0 % 10/19/2017 8:39 AM [facility] Monocyte % 8.0 0.0 - 12.0 % 10/19/2017 8:39 AM [facility] Eosinophil % 0.0 0.0 - 3.0 % 10/19/2017 8:39 AM [facility] Basophil % 0.1 0.0 - 1.0 % 10/19/2017 8:39 AM [facility] Immature Grans % 0.3 0.0 - 0.6 % 10/19/2017 8:39 AM [facility] Neutrophils, Absolute 5.74 1.50 - 8.30 10*3/mm3 10/19/2017 8:39 AM [facility] Lymphocytes, Absolute 1.23 0.60 - 4.80 10*3/mm3 10/19/2017 8:39 AM [facility] Monocytes, Absolute 0.61 0.00 - 1.00 10*3/mm3 10/19/2017 8:39 AM [facility] Eosinophils, Absolute 0.00 0.00 - 0.30 10*3/mm3 10/19/2017 8:39 AM [facility] Basophils, Absolute 0.01 0.00 - 0.20 10*3/mm3 10/19/2017 8:39 AM [facility] Immature Grans, Absolute 0.02 0.00 - 0.03 10*3/mm3 10/19/2017 8:39 AM [facility] Blood 10/19/2017 7:31 AM EST 10/19/2017 8:34 AM EST Franck Camargo MD LAB BLOOD ORDERABLES Final Result [facility]
[address] [place] [address], * (ABNORMAL) Comprehensive Metabolic Panel (10/19/2017 7:31 AM EST) Glucose 131(H) 70 - 100 mg/dL 10/19/2017 8:58 AM EST [facility] BUN 23 9 - 23 mg/dL 10/19/2017 8:58 AM [facility] Creatinine 1.80(H) 0.60 - 1.30 mg/dL 10/19/2017 8:58 AM [facility] Sodium 136 132 - 146 mmol/L 10/19/2017 8:58 AM [facility] Potassium 4.3 3.5 - 5.5 mmol/L 10/19/2017 8:58 AM [facility] Chloride 103 99 - 109 mmol/L 10/19/2017 8:58 AM [facility] CO2 24.0 20.0 - 31.0 mmol/L 10/19/2017 8:58 AM [facility] Calcium 9.2 8.7 - 10.4 mg/dL 10/19/2017 8:58 AM [facility] Total Protein 7.3 5.7 - 8.2 g/dL 10/19/2017 8:58 AM [facility] Albumin 4.30 3.20 - 4.80 g/dL 10/19/2017 8:58 AM EST [facility] ALT (SGPT) 33 7 - 40 U/L 10/19/2017 8:58 AM [facility] AST (SGOT) 33 0 - 33 U/L 10/19/2017 8:58 AM [facility] Alkaline Phosphatase 121(H) 25 - 100 U/L 10/19/2017 8:58 AM [facility] Total Bilirubin 0.7 0.3 - 1.2 mg/dL 10/19/2017 8:58 AM [facility] eGFR Non Amer 40(L) >60 mL/min/1.7 3 10/19/2017 8:58 AM EST [facility] Globulin 3.0 gm/dL 10/19/2017 8:58 AM EST [facility] A/G Ratio 1.4(L) 1.5 - 2.5 g/dL 10/19/2017 8:58 AM EST [facility] BUN/Creatinine Ratio 12.8 7.0 - 25.0 10/19/2017 8:58 AM EST [facility] Anion Gap 9.0 3.0 - 11.0 mmol/L 10/19/2017 8:58 AM EST [facility] Blood 10/19/2017 7:31 AM EST 10/19/2017 8:31 AM EST Narrative [facility] - 10/19/2017 8:58 AM EST [employer] Guidelines Stage ? Description ?GFR 1 ? Normal or High ? 90+ 2 ? Mild decrease ?60-89 3 ? Moderate decrease ??30-59 4 ? Severe decrease ?15-29 5 ? Kidney failure ? <15 Franck Camargo MD LAB BLOOD ORDERABLES Final Result [facility]
[address] [place] [address], * Troponin (10/18/2017 11:05 AM EST) Troponin I <0.006 <=0.039 ng/mL 10/18/2017 11:43 AM EST [facility] Blood 10/18/2017 11:0 5 AM EST 10/18/2017 11:08 AM EST Franck Camargo MD LAB BLOOD ORDERABLES Final Result [facility]
[address] [place] [id number], * ECG 12 Lead (10/18/2017 10:59 AM EST) 10/18/2017 10:5 9 AM EST 10/19/2017 8:43 AM EST Narrative ECG - 10/19/2017 8:43 AM EST Test Reason : cp Blood Pressure : / mmHG Vent. Rate : 061 BPM ? Atrial Rate : 061 BPM ?? P-R Int : 212 ms ?QRS Dur : 102 ms ?QT Int : 424 ms ? P-R-T Axes : 043 008 034 degrees ?? QTc Int : 426 ms Sinus rhythm with 1st degree AV block Otherwise normal ECG No previous ECGs available Confirmed by CARIE ??JERED JUSTICE ([id number]) on 10/19/2017 8:43:03 AM Referred By: ? Confirmed By:JERED DARNELL ??MD Procedure Note Jered Darnell MD - 10/19/2017 Test Reason : cp Blood Pressure : / mmHG Vent. Rate : 061 BPM Atrial Rate : 061 BPM P-R Int : 212 ms QRS Dur : 102 ms QT Int : 424 ms P-R-T Axes : 043 008 034 degrees QTc Int : 426 ms Sinus rhythm with 1st degree AV block Otherwise normal ECG No previous ECGs available Confirmed by JERED DARNELL MD ([id number]) on 10/19/2017 8:43:03 AM Referred By: Confirmed By:JERED DARNELL MD Franck Camargo MD ECG ORDERABLES Final Resu lt ECG documented in this encounter Visit Diagnoses Diagnosis Hiatal hernia with GERD- Primary Hiatal hernia with GERD Paraesophageal hernia Diaphragmatic hernia without mention of obstruction or gangrene documented in this encounter Administered Medications Inactive Administered Medications - up to 3 most recent administrations Medication Order MAR Action Action Date Dose Rate Site acetaminophen (TYLENOL) tablet 650 mg 650 mg, Oral, Once, On Sade 10/18/17 at 0645, For 1 dose, Do not exceed 4 grams of acetaminophen in a 24 hr period. If given for pain, use the following pain scale: Mild Pain = Pain Score of 1-3, CPOT 1-2 Moderate Pain = Pain Score of 4-6, CPOT 3-4 Severe Pain = Pain Score of 7-10, CPOT 5-8Indications:Hiatal hernia with GERD Given 10/18/2017 6:46 AM EST 650 mg aspirin chewable tablet 81 mg 81 mg, Oral, Daily, First dose on Sun10/19/17 at 0900, Do not exceed 4 grams of aspirin in a 24 hr period. If given for pain, use the following pain scale: Mild Pain = Pain Score of 1-3, CPOT 1-2 Moderate Pain = Pain Score of 4-6, CPOT 3-4 Severe Pain = Pain Score of 7-10, CPOT 5-8 Given 10/19/2017 8:20 AM EST 81 mg atorvastatin (LIPITOR) tablet 40 mg 40 mg, Oral, Nightly, First dose on Sade 10/18/17 at 2100, Avoid grapefruit juice. Given 10/18/2017 9:51 PM EST 40 mg bupivacaine-EPINEPHrine (MARCAINE w/EPI) injection As Needed, Starting on Sade 10/18/17 at 0800 Given 10/18/2017 8:00 AM EST 20 mL Abdominal Tissue ceFAZolin in dextrose (ANCEF) IVPB solution 2 g 2 g, Intravenous, Administer over 30 Minutes, Every 8 Hours, First dose (after last reorder) on Sun10/18/17 at 1600, For 2 doses, Indications: Surgical ProphylaxisIndications:Deep gical Prophylaxis New Bag 10/18/2017 11:29 PM EST 2 g New Bag 10/18/2017 4:45 PM EST 2 g cetirizine (zyrTEC) tablet 10 mg 10 mg, Oral, Daily, First dose on Sun10/19/17 at 0900 Given 10/19/2017 8:20 AM EST 10 mg chlorhexidine (PERIDEX) 0.12 % solution 15 mL 15 mL, Mouth/Throat, Once, On Sade 10/18/17 at 0645, For 1 dose, Rinse mouth for 60 seconds x 2 doses {BKC} Swish & spit. Do not swallow.Indications:Hiatal hernia with GERD Given 10/18/2017 6:45 AM EST 15 mL CloNIDine (CATAPRES) tablet 0.1 mg 0.1 mg, Oral, Every 6 Hours PRN, High Blood Pressure, Starting on Sade 10/18/17 at 0746, Given if SBP > 160 DULoxetine (CYMBALTA) DR capsule 60 mg 60 mg, Oral, Daily, First dose on Sun10/19/17 at 0900, Do not crush or chew capsule. Given 10/19/2017 8:20 AM EST 60 mg enoxaparin (LOVENOX) syringe 40 mg 40 mg, Subcutaneous, Daily, First dose on Sun10/19/17 at 0900, Give subcutaneous in abdomen only. Do not massage site after injection. Do not change dose time until after 48 hrs. Given 10/19/2017 8:19 AM EST 40 mg Right Lower Abdomen fentaNYL citrate (PF) (SUBLIMAZE) injection 50 mcg 50 mcg, Intravenous, Every 5 Minutes PRN, Moderate Pain, Starting on Sade 10/18/17 at 0931, For 5 doses, If given for pain, use the following pain scale: Mild Pain = Pain Score of 1-3, CPOT 1-2 Moderate Pain = Pain Score of 4-6, CPOT 3-4 Severe Pain = Pain Score of 7-10, CPOT 5-8 Given 10/18/2017 9:35 AM EST 50 mcg gabapentin (NEURONTIN) capsule 300 mg 300 mg, Oral, 3 Times Daily, First dose on Sade 10/18/17 at 1600 Given 10/19/2017 4:11 PM EST 300 mg Given 10/19/2017 8:20 AM EST 300 mg Given 10/18/2017 9:51 PM EST 300 mg HYDROcodone-acetaminophen (NORCO) 7.5-325 MG per tablet 1 tablet 1 tablet, Oral, Every 4 Hours PRN, Moderate Pain, Please give PO before IV if tolerated, Starting on Sade 10/18/17 at 0746, For 10 days, Do not exceed 4 grams of acetaminophen in a 24 hr period. If given for pain, use the following pain scale: Mild Pain = Pain Score of 1-3, CPOT 1-2 Moderate Pain = Pain Score of 4-6, CPOT 3-4 Severe Pain = Pain Score of 7-10, CPOT 5-8 Given 10/19/2017 1:50 P M EST 1 tablet Given 10/19/2017 7:26 AM EST 1 tablet Given 10/18/2017 10:04 PM EST 1 tablet HYDROmorphone (DILAUDID) injection 0.5 mg 0.5 mg, Intravenous, Every 5 Minutes PRN, Severe Pain, Starting on Sade 10/18/17 at 0931, For 4 doses, Maximum total dose of hydromorphone is 2 mg. If given for pain, use the following pain scale: Mild Pain = Pain Score of 1-3, CPOT 1-2 Moderate Pain = Pain Score of 4-6, CPOT 3-4 Severe Pain = Pain Score of 7-10, CPOT 5-8 Given 10/18/2017 9:41 AM EST 0.5 mg HYDROmorphone (DILAUDID) tablet 2 mg 2 mg, Oral, Every 4 Hours PRN, Moderate Pain, Severe Pain, also use when can't give Lortab because of IV Tylenol. Please give PO before IV if tolerated, Starting on Sade 10/18/17 at 0746, For 10 days, If given for pain, use the following pain scale: Mild Pain = Pain Score of 1-3, CPOT 1-2 Moderate Pain = Pain Score of 4-6, CPOT 3-4 Severe Pain = Pain Score of 7-10, CPOT 5-8 Given 10/18/2017 2:48 PM EST 2 mg labetalol (NORMODYNE,TRANDATE) injection 10 mg 10 mg, Intravenous, Every 3 Hours PRN, High Blood Pressure, Starting on Sade 10/18/17 at 0746, If SBP remains > 160 after one hour, give Labetalol 10 mg. If SBP remains > 160 after two hours, consult hospitalist. Give by slow IV Push each 20mg (or less) over 2 minutes lactated ringers bolus 500 mL 500 mL, Intravenous, at 2,000 mL/hr, Administer over 0.25 Hours, Once, On Sade 10/18/17 at 0645, For 1 doseIndications:Hiatal hernia with GERD New Bag 10/18/2017 6:37 AM EST 1,000 mL 2000 mL/hr lactated ringers infusion 100 mL/hr, Intravenous, Continuous, Starting on Sade 10/18/17 at 0645Indications:Hiatal hernia with GERD New Bag 10/18/2017 8:47 AM EST New Bag 10/18/2017 6:49 AM EST 100 mL/hr 100 mL/hr lidocaine PF 1% (XYLOCAINE) injection 0.5 mL 0.5 mL, Injection, Once As Needed, IV Start, Starting on Sade 10/18/17 at 0606, For 1 dose Given 10/18/2017 6:37 AM EST 0.2 mL losartan (COZAAR) tablet 100 mg 100 mg, Oral, Daily, First dose on Sun10/19/17 at 0900 Given 10/19/2017 8:20 AM EST 100 mg Morphine sulfate (PF) injection 4 mg 4 mg, Intravenous, Every 2 Hours PRN, Moderate Pain, Starting on Sade 10/18/17 at 0746, For 10 days, If given for pain, use the following pain scale: Mild Pain = Pain Score of 1-3, CPOT 1-2 Moderate Pain = Pain Score of 4-6, CPOT 3-4 Severe Pain = Pain Score of 7-10, CPOT 5-8 Given 10/18/2017 11:07 AM EST 4 mg Morphine sulfate (PF) injection 6 mg 6 mg, Intravenous, Every 2 Hours PRN, Severe Pain, Starting on Sade 10/18/17 at 0746, For 10 days, If given for pain, use the following pain scale: Mild Pain = Pain Score of 1-3, CPOT 1-2 Moderate Pain = Pain Score of 4-6, CPOT 3-4 Severe Pain = Pain Score of 7-10, CPOT 5-8 nadolol (CORGARD) tablet 40 mg 40 mg, Oral, Daily, First dose on Sun10/19/17 at 0900 Given 10/19/2017 8:20 AM EST 40 mg naloxone (NARCAN) injection 0.4 mg 0.4 mg, Intravenous, Every 5 Minutes PRN, Respiratory Depression, Starting on Sade 10/18/17 at 0746, If respiratory rate is less than 8 breaths/minute or patient is difficult to arouse stop any narcotics and contact physician. Administer slow IV push. Repeat as ordered until patient's respiratory rate is greater than 12 breaths/minute. naloxone (NARCAN) injection 0.4 mg 0.4 mg, Intravenous, Every 5 Minutes PRN, Respiratory Depression, Starting on Sade 10/18/17 at 0746, If respiratory rate is less than 8 breaths/minute or patient is difficult to arouse stop any narcotics and contact physician. Administer slow IV push. Repeat as ordered until patient's respiratory rate is greater than 12 breaths/minute. ondansetron (ZOFRAN) injection 4 mg 4 mg, Intravenous, Every 6 Hours PRN, Nausea, Vomiting, Starting on Sade 10/18/17 at 0746, Give Zofran first. Give Phenergan if Zofran not effective. Then if Phenergan not effective, give metoclopramide. ondansetron (ZOFRAN) tablet 4 mg 4 mg, Oral, Every 6 Hours PRN, Nausea, Vomiting, Starting on Sade 10/18/17 at 0746, Give Zofran first. Give Phenergan if Zofran not effective. Then if Phenergan not effective, give metoclopramide. pantoprazole (PROTONIX) EC tablet 40 mg 40 mg, Oral, Daily, First dose on Sun10/19/17 at 0900, Swallow whole; do not crush, split, or chew. Given 10/19/2017 8:20 AM EST 40 mg phenol (CHLORASEPTIC) 1.4 % liquid 2 spray 2 spray, Mouth/Throat, Every 2 Hours PRN, Sore Throat, Starting on Sun10/18/17 at 0746, {BKC} Given 10/19/2017 8:19 AM EST 2 sprays rOPINIRole (REQUIP) tablet 2 mg 2 mg, Oral, Nightly, First dose on Sun10/18/17 at 2100 Given 10/18/2017 9:51 PM EST 2 mg simethicone (MYLICON) chewable tablet 80 mg 80 mg, Oral, 4 Times Daily PRN, Flatulence, Starting on Sun10/18/17 at 0748 Given 10/18/2017 9:37 AM EST 80 mg sodium chloride (NS) irrigation solution As Needed, Starting on Sun10/18/17 at 0834 Given 10/18/2017 8:34 AM EST 1,000 mL Abdominal Cavity sodium chloride 0.45 % with KCl 20 mEq/L infusion 125 mL/hr, Intravenous, Continuous, Starting on Sun10/18/17 at 0830, Discontinue any other maintenance IVF's Currently Infusing 10/19/2017 6:44 AM EST 125 mL/hr 125 mL/hr Currently Infusing 10/19/2017 4:39 AM EST 125 mL/hr 125 m L/hr Currently Infusing 10/19/2017 2:33 AM EST 125 mL/hr 125 m L/hr sterile water irrigation solution As Needed, Starting on Sun10/18/17 at 0720 Given 10/18/2017 7:20 AM EST 1,000 mL Other sucralfate (CARAFATE) tablet 1 g 1 g, Oral, 2 Times Daily, First dose on Sun10/18/17 at 2200, Take on an empty stomach. Given 10/19/2017 10:00 AM EST 1 g Given 10/18/2017 9:51 PM EST 1 g tamsulosin (FLOMAX) 24 hr capsule 0.4 mg 0.4 mg, Oral, Daily, First dose on Sun10/19/17 at 0900, Swallow whole. Do not crush or chew. Given 10/19/2017 8:20 AM EST 0.4 mg traZODone (DESYREL) tablet 100 mg 100 mg, Oral, Nightly, First dose on Sun10/18/17 at 2100, Take with food. Given 10/18/2017 9:51 PM EST 100 mg documented in this encounter Active and Recently Administered Medications Times are shown in EST. Scheduled Medication Order 10/17/2017 10/18/2017 10/19/2017 acetaminophen (TYLENOL) tablet 650 mg (COMPLETED) 650 mg, Oral, Once, On Sade 10/18/17 at 0645, For 1 dose, Do not exceed 4 grams of acetaminophen in a 24 hr period. If given for pain, use the following pain scale: Mild Pain = Pain Score of 1-3, CPOT 1-2 Moderate Pain = Pain Score of 4-6, CPOT 3-4 Severe Pain = Pain Score of 7-10, CPOT 5-8 0646 (Given - Provider: Yesi Navarrete RN) aspirin chewable tablet 81 mg 81 mg, Oral, Daily, First dose on Sun10/19/17 at 0900, Do not exceed 4 grams of aspirin in a 24 hr period. If given for pain, use the following pain scale: Mild Pain = Pain Score of 1-3, CPOT 1-2 Moderate Pain = Pain Score of 4-6, CPOT 3-4 Severe Pain = Pain Score of 7-10, CPOT 5-8 0820 (Given - Provid er: Fanny Ornelas RN) atorvastatin (LIPITOR) tablet 40 mg 40 mg, Oral, Nightly, First dose on Sade 10/18/17 at 2100, Avoid grapefruit juice. 2151 (Given - Provider: Jovana Posadas RN) ceFAZolin in dextrose (ANCEF) IVPB solution 2 g (CANCELED) 2 g, Intravenous, Administer over 30 Minutes, Every 8 Hours, First dose on Sade 10/18/17 at 0830, For 2 doses, Indications: Surgical Prophylaxis 0743 (Given - Provider: Terri Ca CRNA)1700 (Canceled Entry - Provider: Ban Sam RN) ceFAZolin in dextrose (ANCEF) IVPB solution 2 g (COMPLETED) 2 g, Intravenous, Administer over 30 Minutes, Every 8 Hours, First dose (after last reorder) on Sade 10/18/17 at 1600, For 2 doses, Indications: Surgical Prophylaxis 1645 (New Bag - Provider: Ban Sam RN)2023 (Stopped - Provider: Jovana Posadas RN)2329 (New Bag - Provider: Jovana Posadas RN) 0233 (Stopped - Provider: Jovana Posadas RN) cetirizine (zyrTEC) tablet 10 mg 10 mg, Oral, Daily, First dose on Sun10/19/17 at 0900 0820 (Given - Provid er: Fanny Ornelas RN) chlorhexidine (PERIDEX) 0.12 % solution 15 mL (COMPLETED) 15 mL, Mouth/Throat, Once, On Sade 10/18/17 at 0645, For 1 dose, Rinse mouth for 60 seconds x 2 doses {BKC} Swish & spit. Do not swallow. 0645 (Given - Provider: Yesi Navarrete RN - Comment: 15 ML X 2) DULoxetine (CYMBALTA) DR capsule 60 mg 60 mg, Oral, Daily, First dose on Sun10/19/17 at 0900, Do not crush or chew capsule. 0820 (Given - Provid er: Fanny Ornelas RN) enoxaparin (LOVENOX) syringe 40 mg 40 mg, Subcutaneous, Daily, First dose on Sun10/19/17 at 0900, Give subcutaneous in abdomen only. Do not massage site after injection. Do not change dose time until after 48 hrs. 0819 (Given - Provid er: Fanny Ornelas RN) fluticasone (FLONASE) 50 MCG/ACT nasal spray 2 spray 2 spray, Nasal, Daily, First dose on Sun10/19/17 at 0900 1342 (Not Given - Provider: Fanny Ornelas RN - Reason: Other) gabapentin (NEURONTIN) capsule 300 mg 300 mg, Oral, 3 Times Daily, First dose on Sun10/18/17 at 1600 1645 (Given - Provider: Ban Sam RN)2151 (Given - Provider: Jovana Posadas RN) 0820 (Given - Provider: Fanny Ornelas RN)1611 (Given - Provider: Fanny Ornelas RN) lactated ringers bolus 500 mL (COMPLETED) 500 mL, Intravenous, at 2,000 mL/hr, Administer over 0.25 Hours, Once, On Sun10/18/17 at 0645, For 1 dose 0637 (New Bag - Provider: Yesi Navarrete RN) losartan (COZAAR) tablet 100 mg 100 mg, Oral, Daily, First dose on Sun10/19/17 at 0900 0820 (Given - Provid er: Fanny Ornelas RN) nadolol (CORGARD) tablet 40 mg 40 mg, Oral, Daily, First dose on Sun10/19/17 at 0900 0820 (Given - Provid er: Fanny Ornelas RN) pantoprazole (PROTONIX) EC tablet 40 mg 40 mg, Oral, Daily, First dose on Sun10/19/17 at 0900, Swallow whole; do not crush, split, or chew. 0820 (Given - Provid er: Fanny Ornelas RN) rOPINIRole (REQUIP) tablet 2 mg 2 mg, Oral, Nightly, First dose on Sun10/18/17 at 2100 2151 (Given - Provider: Jovana Posadas RN) sucralfate (CARAFATE) tablet 1 g 1 g, Oral, 2 Times Daily, First dose on Sun10/18/17 at 2200, Take on an empty stomach. 2151 (Given - Provider: Jovana Posadas RN) 1000 (Given - Provider: Fanny Ornelas, SOMMER) tamsulosin (FLOMAX) 24 hr capsule 0.4 mg 0.4 mg, Oral, Daily, First dose on Sun10/19/17 at 0900, Swallow whole. Do not crush or chew. 0820 (Given - Provid er: Fanny Ornelas, SOMMER) traZODone (DESYREL) tablet 100 mg 100 mg, Oral, Nightly, First dose on Sun10/18/17 at 2100, Take with food. 2151 (Given - Provider: Jovana Posadas RN) Continuous Medication Order 10/17/2017 10/18/2017 10/19/2017 lactated ringers infusion (CANCELED) 100 mL/hr, Intravenous, Continuous, Starting on Sun10/18/17 at 0645 0649 (New Bag - Provider: Yesi Navarrete RN)0847 (New Bag - Provider: Terri Ca CRNA)0914 (Stopped - Provider: Terri Ca CRNA) sodium chloride 0.45 % with KCl 20 mEq/L infusion 125 mL/hr, Intravenous, Continuous, Starting on Sun10/18/17 at 0830, Discontinue any other maintenance IVF's 1351 (New Bag - Provider: Ban Sam RN)2023 (Currently Infusing - Provider: Jovana Posadas RN)2248 (Currently Infusing - Provider: Jovana Posadas, SOMMER)2333 (New Bag - Provider: Jovana Posadas RN) 0233 (Currently Infusing - Provider: Jovana Posadas RN)0439 (Currently Infusing - Provider: Jovana Posadas, SOMMER)0644 (Currently Infusing - Provider: Jovana Posadas, SOMMER)0823 (Stopped - Provider: Fanny Ornelas RN - Comment: IV INFILTRATED) PRN Medication Order 10/17/2017 10/18/2017 10/19/2017 albuterol (PROVENTIL) nebulizer solution 0.5% 2.5 mg/0.5mL 2.5 mg, Nebulization, Every 4 Hours PRN, Shortness of Air, Starting on Sun10/18/17 at 0746 bupivacaine-EPINEPHrine (MARCAINE w/EPI) injection (CANCELED) As Needed, Starting on Sade 10/18/17 at 0800 0800 (Given - Provider: Franck Camargo MD - Comment: TROCAR SITES) CloNIDine (CATAPRES) tablet 0.1 mg(Linked Group 1) 0.1 mg, Oral, Every 6 Hours PRN, High Blood Pressure, Starting on Sade 10/18/17 at 0746, Given if SBP > 160 diphenhydrAMINE (BENADRYL) injection 25 mg 25 mg, Intravenous, Every 4 Hours PRN, Itching, Starting on Sade 10/18/17 at 0746, {BKC} This med may be ordered in other forms and routes. Before giving verify the last time the drug was given by any route/form. 25 mg may be given IV push over less than 1 minute. fentaNYL citrate (PF) (SUBLIMAZE) injection 50 mcg (CANCELED) 50 mcg, Intravenous, Every 5 Minutes PRN, Moderate Pain, Starting on Sade 10/18/17 at 0931, For 5 doses, If given for pain, use the following pain scale: Mild Pain = Pain Score of 1-3, CPOT 1-2 Moderate Pain = Pain Score of 4-6, CPOT 3-4 Severe Pain = Pain Score of 7-10, CPOT 5-8 0935 (Given - Provider: Ban Tovar RN) HYDROcodone-acetaminophen (NORCO) 7.5-325 MG per tablet 1 tablet 1 tablet, Oral, Every 4 Hours PRN, Moderate Pain, Please give PO before IV if tolerated, Starting on Sade 10/18/17 at 0746, For 10 days, Do not exceed 4 grams of acetaminophen in a 24 hr period. If given for pain, use the following pain scale: Mild Pain = Pain Score of 1-3, CPOT 1-2 Moderate Pain = Pain Score of 4-6, CPOT 3-4 Severe Pain = Pain Score of 7-10, CPOT 5-8 2204 (Given - Provider: Jovana Posadas RN) 0726 (Given - Provider: Jovana Posadas RN)1350 (Given - Provider: Fanny Ornelas RN) HYDROmorphone (DILAUDID) injection 0.5 mg (CANCELED) 0.5 mg, Intravenous, Every 5 Minutes PRN, Severe Pain, Starting on Sade 10/18/17 at 0931, For 4 doses, Maximum total dose of hydromorphone is 2 mg. If given for pain, use the following pain scale: Mild Pain = Pain Score of 1-3, CPOT 1-2 Moderate Pain = Pain Score of 4-6, CPOT 3-4 Severe Pain = Pain Score of 7-10, CPOT 5-8 0941 (Given - Provider: Ban Tovar RN) HYDROmorphone (DILAUDID) tablet 2 mg 2 mg, Oral, Every 4 Hours PRN, Moderate Pain, Severe Pain, also use when can't give Lortab because of IV Tylenol. Please give PO before IV if tolerated, Starting on Sade 10/18/17 at 0746, For 10 days, If given for pain, use the following pain scale: Mild Pain = Pain Score of 1-3, CPOT 1-2 Moderate Pain = Pain Score of 4-6, CPOT 3-4 Severe Pain = Pain Score of 7-10, CPOT 5-8 1448 (Given - Provider: Ban Sam RN) labetalol (NORMODYNE,TRANDATE) injection 10 mg(Linked Group 1) 10 mg, Intravenous, Every 3 Hours PRN, High Blood Pressure, Starting on Sade 10/18/17 at 0746, If SBP remains > 160 after one hour, give Labetalol 10 mg. If SBP remains > 160 after two hours, consult hospitalist. Give by slow IV Push each 20mg (or less) over 2 minutes lidocaine PF 1% (XYLOCAINE) injection 0.5 mL (COMPLETED) 0.5 mL, Injection, Once As Needed, IV Start, Starting on Sade 10/18/17 at 0606, For 1 dose 0637 (Given - Provider: Yesi Navarrete, SOMMER) LORazepam (ATIVAN) tablet 1 mg 1 mg, Oral, Every 12 Hours PRN, Anxiety, Starting on Sade 10/18/17 at 0746, For 10 days Morphine sulfate (PF) injection 4 mg(Linked Group 2) 4 mg, Intravenous, Every 2 Hours PRN, Moderate Pain, Starting on Sade 10/18/17 at 0746, For 10 days, If given for pain, use the following pain scale: Mild Pain = Pain Score of 1-3, CPOT 1-2 Moderate Pain = Pain Score of 4-6, CPOT 3-4 Severe Pain = Pain Score of 7-10, CPOT 5-8 1107 (Given - Provider: Ban Sam RN) Morphine sulfate (PF) injection 6 mg(Linked Group 3) 6 mg, Intravenous, Every 2 Hours PRN, Severe Pain, Starting on Sade 10/18/17 at 0746, For 10 days, If given for pain, use the following pain scale: Mild Pain = Pain Score of 1-3, CPOT 1-2 Moderate Pain = Pain Score of 4-6, CPOT 3-4 Severe Pain = Pain Score of 7-10, CPOT 5-8 naloxone (NARCAN) injection 0.4 mg(Linked Group 2) 0.4 mg, Intravenous, Every 5 Minutes PRN, Respiratory Depression, Starting on Sade 10/18/17 at 0746, If respiratory rate is less than 8 breaths/minute or patient is difficult to arouse stop any narcotics and contact physician. Administer slow IV push. Repeat as ordered until patient's respiratory rate is greater than 12 breaths/minute. naloxone (NARCAN) injection 0.4 mg(Linked Group 3) 0.4 mg, Intravenous, Every 5 Minutes PRN, Respiratory Depression, Starting on Sade 10/18/17 at 0746, If respiratory rate is less than 8 breaths/minute or patient is difficult to arouse stop any narcotics and contact physician. Administer slow IV push. Repeat as ordered until patient's respiratory rate is greater than 12 breaths/minute. ondansetron (ZOFRAN) injection 4 mg(Linked Group 4) 4 mg, Intravenous, Every 6 Hours PRN, Nausea, Vomiting, Starting on Sade 10/18/17 at 0746, Give Zofran first. Give Phenergan if Zofran not effective. Then if Phenergan not effective, give metoclopramide. ondansetron (ZOFRAN) tablet 4 mg(Linked Group 4) 4 mg, Oral, Every 6 Hours PRN, Nausea, Vomiting, Starting on Sade 10/18/17 at 0746, Give Zofran first. Give Phenergan if Zofran not effective. Then if Phenergan not effective, give metoclopramide. phenol (CHLORASEPTIC) 1.4 % liquid 2 spray 2 spray, Mouth/Throat, Every 2 Hours PRN, Sore Throat, Starting on Sade 10/18/17 at 0746, {BKC} 0819 (Given - Provid er: Fanny Ornelas, SOMMER) promethazine (PHENERGAN) injection 12.5 mg 12.5 mg, Intravenous, Every 6 Hours PRN, Nausea, Vomiting, Starting on Sade 10/18/17 at 0748, If given IV, dilute in 20 mL of NS. Max rate: 25 mg/min If giving IV, dilute dose in 20 mL NS and slow IV push over 3-5 minutes. Administer through large bore vein (not hand or wrist) through running IV line at port furthest from patient's vein. simethicone (MYLICON) chewable tablet 80 mg 80 mg, Oral, 4 Times Daily PRN, Flatulence, Starting on Sade 10/18/17 at 0748 0937 (Given - Provider: Ban Tovar RN) sodium chloride (NS) irrigation solution (CANCELED) As Needed, Starting on Sade 10/18/17 at 0834 0834 (Given - Provider: Carmen Marin, SOMMER - Comment: LESS THAN 500 ML) sterile water irrigation solution (CANCELED) As Needed, Starting on Sade 10/18/17 at 0720 0720 (Given - Provider: Carmen Marin RN - Comment: TO [employer]ER[employer] FIELD FOR POINT OF CARE CLEANING & FIRE SAFETY) Linked Groups Order Group 1: CloNIDine (CATAPRES) tablet 0.1 mgJump to med 0.1 mg, Oral, Every 6 Hours PRN, High Blood Pressure, Starting on Sade 10/18/17 at 0746, Given if SBP > 160 And labetalol (NORMODYNE,TRANDATE) injection 10 mgJump to med 10 mg, Intravenous, Every 3 Hours PRN, High Blood Pressure, Starting on Sade 10/18/17 at 0746, If SBP remains > 160 after one hour, give Labetalol 10 mg. If SBP remains > 160 after two hours, consult hospitalist. Give by slow IV Push each 20mg (or less) over 2 minutes Group 2: Morphine sulfate (PF) injection 4 mgJump to med 4 mg, Intravenous, Every 2 Hours PRN, Moderate Pain, Starting on Sade 10/18/17 at 0746, For 10 days, If given for pain, use the following pain scale: Mild Pain = Pain Score of 1-3, CPOT 1-2 Moderate Pain = Pain Score of 4-6, CPOT 3-4 Severe Pain = Pain Score of 7-10, CPOT 5-8 And naloxone (NARCAN) injection 0.4 mgJump to med 0.4 mg, Intravenous, Every 5 Minutes PRN, Respiratory Depression, Starting on Sade 10/18/17 at 0746, If respiratory rate is less than 8 breaths/minute or patient is difficult to arouse stop any narcotics and contact physician. Administer slow IV push. Repeat as ordered until patient's respiratory rate is greater than 12 breaths/minute. Group 3: Morphine sulfate (PF) injection 6 mgJump to med 6 mg, Intravenous, Every 2 Hours PRN, Severe Pain, Starting on Sade 10/18/17 at 0746, For 10 days, If given for pain, use the following pain scale: Mild Pain = Pain Score of 1-3, CPOT 1-2 Moderate Pain = Pain Score of 4-6, CPOT 3-4 Severe Pain = Pain Score of 7-10, CPOT 5-8 And naloxone (NARCAN) injection 0.4 mgJump to med 0.4 mg, Intravenous, Every 5 Minutes PRN, Respiratory Depression, Starting on Sade 10/18/17 at 0746, If respiratory rate is less than 8 breaths/minute or patient is difficult to arouse stop any narcotics and contact physician. Administer slow IV push. Repeat as ordered until patient's respiratory rate is greater than 12 breaths/minute. Group 4: ondansetron (ZOFRAN) tablet 4 mgJump to med 4 mg, Oral, Every 6 Hours PRN, Nausea, Vomiting, Starting on Sade 10/18/17 at 0746, Give Zofran first. Give Phenergan if Zofran not effective. Then if Phenergan not effective, give metoclopramide. Or ondansetron (ZOFRAN) injection 4 mgJump to med 4 mg, Intravenous, Every 6 Hours PRN, Nausea, Vomiting, Starting on Sade 10/18/17 at 0746, Give Zofran first. Give Phenergan if Zofran not effective. Then if Phenergan not effective, give metoclopramide. 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
--- OUTSIDE RECORDS SUMMARY | 2024-08-20 11:10 | XMS_ITS | Clinical Summary ---
Author Organization [facility] Address [address] [place] [id number] Care Team Providers Care Leather Cutter Name Role Phone Tye Medina MD Primary Care Provider [phone] Allergies No known active allergies Medications atorvastatin (LIPITOR) 40 MG tablet Take 40 mg by mouth Every Night. 08/19/2017 Active DULoxetine (CYMBALTA) 60 MG capsule Take 60 mg by mouth Daily. 08/10/2017 Active fluticasone (FLONASE) 50 MCG/ACT nasal spray 2 sprays into each nostril Daily. 07/27/2017 Active losartan (COZAAR) 100 MG tablet Take 100 mg by mouth Daily. 09/23/2017 Active meloxicam (MOBIC) 15 MG tablet Take 15 mg by mouth Daily. 09/13/2017 Active pantoprazole (PROTONIX) 40 MG EC tablet Take 40 mg by mouth Daily. 09/13/2017 Active rOPINIRole (REQUIP) 2 MG tablet Take 2 mg by mouth Every Night. 09/24/2017 Active tamsulosin (FLOMAX) 0.4 MG capsule 24 hr capsule 1 capsule Daily. 09/23/2017 Active traZODone (DESYREL) 100 MG tablet Take 100 mg by mouth Every Night. 08/10/2017 Active cetirizine (zyrTEC) 10 MG tablet Take 10 mg by mouth Daily. Active aspirin 81 MG tablet Take 81 mg by mouth. Active ELIQUIS 5 MG tablet tablet 01/20/2019 Activ e furosemide (LASIX) 20 MG tablet 12/30/2018 Active Active Problems Problem Noted Date Diagnosed Date Hiatal hernia with GERD 10/10/2017 Overview (10/10/2017): Added automatically from request for surgery [id number] Family History Medical History Relation Name Comments ALS Father Congenital heart disease Mother Diabetes Mother Relation Name Status Comments Father Mother Social History Tobacco Use Types Packs/Day Years Used Date Smoking Tobacco: Former Cigarettes Q uit: 2000 Smokeless Tobacco: Never Alcohol Use Standard Drinks/Week Comments Yes 10 (1 standard drink = 0.6 oz pure alcohol) on the weekends, especially in the summer Abuse Screen Answer Date Recorded Unsafe at Home or Work/School Not on file Feels Threatened by Someone? Not on file 08/2023 Does Anyone Keep You from Co ntacting Others or Doint Things Outside the Home? Not on file 07/18/2023 Physical Sign of Abuse Present Not on file 1 Housing Stability Answer Date Recorded Current Living Arrangements Not on file 07/08 Potentially Unsafe Housing Conditions Not on azalia e 07/18/2023 Family and Community Support Answer Wale e Recorded Help with Day-to-Day Activities Not on file 07/18/2023 Lonely or Isolated Not on file 07/18/2023 Employment Answer Date Recorded Do you want help finding or keeping work or a olivia b? Not on file 07/18/2023 Disabilities Answer Date Recorded Concentrating, Remembering, or Making Decisions Difficulty Not on file 07/18/2023 Doing Errands Independently Difficulty Not on fi le 07/18/2023 Education Answer Date Recorded Help with school or training? Not on file Preferred Language Not on file 07/18/2023 Sex and Gender Information Value Date Recorded Sex Assigned at Not on file Legal Sex Male 2:14 PM EST Gender Identity Not on file Sexual Orientation Not on file Last Filed Vital Signs Vital Sign Reading Time Taken Comments Blood Pressure 116/80 01/31/2019 2:08 PM EDT Pulse 85 01/31/2019 2:08 PM EDT Temperature 36.3 ??C (97.3 ??F) 01/31/2019 2:08 PM ED T Respiratory Rate 18 01/31/2019 2:08 PM EDT Oxygen Saturation 98% 01/31/2019 2:08 PM EDT Inhaled Oxygen Concentration - - Weight 99.8 kg (220 lb) 01/31/2019 2:08 PM EDT Height 182.9 cm (6') 01/31/2019 2:08 PM EDT Body Mass Index 29.84 01/31/2019 2:08 PM EDT Plan of Treatment Health Maintenance Due Date Last Done Comments COLOGUARD 1965 COLON CANCER SCREENING 5 YEA R SIGMOIDOSCOPY 1963 COLONOSCOPY 1963 COLORECTAL CANCER SCREENING 1963 CT COLONOGRAPHY 1963 FECAL OCCULT BLOOD TEST 1963 FIT Testing (1 year) 1963 LIPID PANEL 1963 TDAP/TD VACCINES (1 - Tdap) 1982 ZOSTER VACCINE (1 of 2) 2013 ANNUAL WELLNESS VISIT 10/09/2017 HEPATITIS C SCREENING 10/09/2017 INFLUENZA VACCINE 05/08/2024 COVID-19 Vaccine (1 - 2023-2 5 season) 2024 Pneumococcal Vaccine 0-64 Aged Out No longer eligible based on patient's age to complete this topic Insurance MEDICARE REPLACEMENT Advance Directives * Full Code (Latest Code Status on File) Date Activated Date Inactivated Comments 10/18/2017 7:48 AM 10/19/2017 6:51 PM Care Teams Leather Cutter Relationship Specialty Start Date End Date Tye Medina MD [address] [facility] [address] [place] [facility] [id number] PCP - General Adolescent Medicine 10/09/17
--- OUTSIDE RECORDS SUMMARY | 2024-08-20 11:10 | XMS_ITS | Encounter Summary ---
Author Organization [facility] Address [address] [place] [address] Care Team Providers Care Central Communications Specialist Name Role Phone Tye Medina MD Primary Care Provider [phone] Reason for Visit * Auth/Cert Specialty Diagnoses / Procedures Referred By Dacia martin Referred To Contact Diagnoses Hiatal hernia with GERD Hiatal hernia with GERD [K21.9, K44.9] Procedures DIMA FUNDOPLICATION LAPAROSCOPIC, HIATAL HERNIA REPAIR LAPAROSCOPIC Referral ID Status Reason Start Date Expiration Date Visits Re quested Visits Authorized [id number] 1 1 Encounter Details Date Type Department Care Team (Late st Contact Info) Description 10/18/2017 7:43 AM EST Anesthesia Event [facility] OR [address] [place] [address] Bennie Brown MD [address] [place] [id number] Anesthesia Record Procedure Summary Procedure Name Responsible Anesthesiologist Anesthesia Start Time Anesthesia Stop Time DIMA FUNDOPLICATION LAPAROSCOPIC, HIATAL HERNIA REPAIR LAPAROSCOPIC (Abdomen) Bennie Brown MD 10/18/17 0743 10/18/17 0915 Events Date Time Event Comment 10/18/2017 0652 0717 AN Equip Check 0743 An Start 0743 An Start Data 0748 An Induction The patient was reevaluated immediately before moderate or deep sedation use and before anesthesia induction. 0748 An Intubation 0905 An Extubation 0909 an stop data 0914 Handoff to RN The following has been completed: 1. Identification of Patient, james family member(s) or patient surrogate 2. Identification of the responsible Practitioner (primary service) 3. Discussion of the pertinent/attainable medical history 4. Discussion of the surgical/procedure course (procedure, reason for surgery, procedure performed) 5. Intraoperative anesthetic management and issue/concerns to include things such as airway, hemodynamics, narcotic, sedation level and paralytic management and intravenous fluids/blood products and urine output during the procedure 6. Expectations/Plans for the early post-procedure period to include things such as anticipated course (anticipatory guidance), complications, need for laboratory or ECG and medication administration 7. Opportunity for questions and acknowledgment of understanding of report from the receiving PACU/ICU team 0915 An Stop Meds Name Total propofol (DIPRIVAN) injection 200 mg lidocaine (XYLOCAINE) injection 1% 50 mg Rocuronium 50 mg/5mL 50 mg succinylcholine (ANECTINE) 20 mg/mL 140 mg fentaNYL (SUBLIMAZE) injection 100 mcg dexamethasone (DECADRON) 4 mg/mL 8 mg ondansetron 2 mg/mL 4 mg ePHEDrine injection 20 mg neostigmine (PROSTIGMINE) 1 mg/mL inject ion 4 mg glycopyrrolate (ROBINUL) injection 0.4 m g/2 mL 0.6 mg propofol (DIPRIVAN) infusion 10 mg/mL 10 0 mL 166.88 mg ceFAZolin in dextrose (ANCEF) IVPB solut ion 2 g 2 g lactated ringers infusion 1,400 mL * Agents Name O2 Desflurane * Blood No blood administrations on file. Lines, Drains, and Airways Type Details Placement Removal Retired Peripheral IV Line - Single Lumen 10/18/17; 0637; cephalic vein (lateral side of arm), left; [id number] catheter system; 18 gauge (PER Parag CONRAD RN); distraction, intradermal injection; lumen/catheter not patent, site care per policy/procedure, removed per policy/procedure, site symptomatic, catheter/device intact; 10/19/17; 1009 10/18/17 0637 by Yesi Navarrete RN 10/19/17 1009 by Fanny Ornelas, SOMMER Retired Airway 10/18/17; 0807 (created via procedure documentation); 10/18/17; 0909 10/18/17 0807 by Magen Ca CRNA 10/18/17 0909 by Magen Ca CRNA Retired Incision 10/18/17; 0853; othe r (see comments); abdomen; 02/20/18 (Removed 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 batch 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 for 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); 1034 (Removed via batch job for retired 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 S17 upgrade) 10/18/17 0853 by Carmen Marin RN 02/20/18 1034 by 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), 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 documented in this encounter Social History Tobacco Use Types Packs/Day Years Used Date Smoking Tobacco: Former Cigarettes Q uit: 1999 Smokeless Tobacco: Never Alcohol Use Standard Drinks/Week Comments Yes 10 (1 standard drink = 0.6 oz pure alcohol) on the weekends, especially in the summer Sex and Gender Information Value Date Recorded Sex Assigned at Not on file Legal Sex Male 2:14 PM EST Gender Identity Not on file Sexual Orientation Not on file documented as of this encounter OR Notes * Anesthesia Postprocedure Evaluation - Magen Ca CRNA - 10/18/2017 9:14 AM EST Patient: Timur Uribe Procedure Summary Date Anesthesia Start Anesthesia Stop Room / Location 10/18/17 0743 [facility] Procedure Diagnosis Surgeon Provider DIMA FUNDOPLICATION LAPAROSCOPIC, HIATAL HERNIA REPAIR LAPAROSCOPIC (N/A Abdomen) Paraesophageal hernia (Hiatal hernia with GERD [K21.9, K44.9]) MD Bennie Evans MD Anesthesia Type: general Last vitals BP 136/92 Temp 97.5 Pulse 79 Resp 15 SpO2 93 Post Anesthesia Care and Evaluation Patient location during evaluation: PACU Patient participation: complete - patient participated Level of consciousness: awake and alert Pain score: 0 Pain management: adequate Airway patency: patent Anesthetic complications: No anesthetic complications PONV Status: none Cardiovascular status: hemodynamically stable and acceptable Respiratory status: nonlabored ventilation, acceptable and nasal cannula Hydration status: acceptable * Anesthesia Procedure Notes - Magen Ca CRNA - 10/18/2017 8:05 AM ESTAssociated Order(s): ANESTHESIA INTUBATION Airway Urgency: elective Airway not difficult General Information and Staff Patient location during procedure: OR Anesthesiologist: BENNIE BROWN ELECTRICAL ENGINEERING DRAFTING OFFICER: MAGEN CA Indications and Patient Condition Indications for airway management: airway protection Preoxygenated: yes MILS not maintained throughout Mask difficulty assessment: 0 - not attempted (RSI) Final Airway Details Final airway type: endotracheal airway Successful airway: ETT Cuffed: yes Successful intubation technique: direct laryngoscopy Facilitating devices/methods: Bougie Endotracheal tube insertion site: oral Blade: Elizabeth Blade size: #3 ETT size: 7.5 mm Cormack-Lehane Classification: grade III - view of epiglottis only Placement verified by: chest auscultation and capnometry Cuff volume (mL): 6 Measured from: lips ETT to lips (cm): 21 Number of attempts at approach: 1 Additional Comments Patient history, labs, physical exam, anesthetic plan reviewed with MDA and patient in preop. Pt transported to room via RN. All ASA monitors applied, preoxygenated x 3 min/ ETO2 of >85, IV patent, rapid sequence induction with cricoid pressure, grade III view with mac3, bougie used, atraumatic intubation, + ETCO2, negative epigastric sounds, breath sound equal bilaterally with symmetric chestrise and fall, tube secured, all VSS, cspine neutrality maintained throughout induction, intubationand postitioning, all ppp, arms <90. 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 Plan discussed with ELECTRICAL ENGINEERING DRAFTING OFFICER. documented in this encounter Plan of Treatment Not on file documented as of this encounter Procedures Procedure Name Priority Date/Time Associated Diagnosis Comments ANESTHESIA INTUBATION Routine 10/18/2017 8:07 AM EST documented in this encounter Results * Anesthesia Intubation (10/18/2017 8:07 AM EST) Narrative Magen Ca CRNA - 10/18/2017 8:07 AM EST Magen Ca CRNA ? 10/18/2017 ??8:07 AM Airway Urgency: elective Airway not difficult General Information and Staff Patient location during procedure: OR Anesthesiologist: BENNIE BROWN ELECTRICAL ENGINEERING DRAFTING OFFICER: MAGEN CA Indications and Patient Condition Indications for airway management: airway protection Preoxygenated: yes MILS not maintained throughout Mask difficulty assessment: 0 - not attempted (RSI) Final Airway Details Final airway type: endotracheal airway Successful airway: ETT Cuffed: yes Successful intubation technique: direct laryngoscopy Facilitating devices/methods: Bougie Endotracheal tube insertion site: oral Blade: Elizabeth Blade size: #3 ETT size: 7.5 mm Cormack-Lehane Classification: grade III - view of epiglottis only Placement verified by: chest auscultation and capnometry Cuff volume (mL): 6 Measured from: lips ETT to lips (cm): 21 Number of attempts at approach: 1 Additional Comments Patient history, labs, physical exam, anesthetic plan reviewed with MDA and patient in preop. ??Pt transported to room via RN. All ASA monitors applied, preoxygenated x 3 min/ ETO2 of >85, IV patent, rapid sequence induction with cricoid pressure, grade III view with mac3, bougie used, atraumatic intubation, + ETCO2, negative epigastric sounds, breath sound equal bilaterally with symmetric chest rise and fall, tube secured, all VSS, cspine neutrality maintained throughout induction, intubation and postitioning, all ppp, arms <90. ?? Procedure Note Magen Ca CRNA - 10/18/2017 8:05 AM EST Airway Urgency: elective Airway not difficult General Information and Staff Patient location during procedure: OR Anesthesiologist: BENNIE BROWN ELECTRICAL ENGINEERING DRAFTING OFFICER: MAGEN CA Indications and Patient Condition Indications for airway management: airway protection Preoxygenated: yes MILS not maintained throughout Mask difficulty assessment: 0 - not attempted (RSI) Final Airway Details Final airway type: endotracheal airway Successful airway: ETT Cuffed: yes Successful intubation technique: direct laryngoscopy Facilitating devices/methods: Bougie Endotracheal tube insertion site: oral Blade: Elizabeth Blade size: #3 ETT size: 7.5 mm Cormack-Lehane Classification: grade III - view of epiglottis only Placement verified by: chest auscultation and capnometry Cuff volume (mL): 6 Measured from: lips ETT to lips (cm): 21 Number of attempts at approach: 1 Additional Comments Patient history, labs, physical exam, anesthetic plan reviewed with MDAand patient in preop. Pt transported to room via RN. All ASA monitorsapplied, preoxygenated x 3 min/ ETO2 of >85, IV patent, rapid sequenceinduction with cricoid pressure, grade III view with mac3, bougie used,atraumatic intubation, + ETCO2, negative epigastric sounds, breath soundequal bilaterally with symmetric chest rise and fall, tube secured, allVSS, cspine neutrality maintained throughout induction, intubation andpostitioning, all ppp, arms <90. us Bennie Brown MD ANESTHESIA ORDERABLES Final Result documented in this encounter Visit Diagnoses Not on filedocumented in this encounter Administered Medications Inactive Administered Medications - up to 3 most recent administrations Medication Order MAR Action Action Date Dose Rate Site ceFAZolin in dextrose (ANCEF) IVPB solution 2 g 2 g, Intravenous, Administer over 30 Minutes, Every 8 Hours, First dose on Sade 10/18/17 at 0830, For 2 doses, Indications: Surgical ProphylaxisIndications:Surgical Prophylaxis Given 10/18/2017 7:43 AM EST 2 g dexamethasone (DECADRON) injection Intravenous, As Needed, Starting on Sade 10/18/17 at 0752 Given 10/18/2017 7:52 AM EST 8 mg ePHEDrine injection Intravenous, As Needed, Starting on Sade 10/18/17 at 0758 Given 10/18/2017 7:58 AM EST 10 mg Given 10/18/2017 7:54 AM EST 10 mg fentaNYL citrate (PF) (SUBLIMAZE) injection Intravenous, As Needed, Severe Pain, Starting on Sade 10/18/17 at 0748 Given 10/18/2017 7:48 AM EST 100 mcg glycopyrrolate (ROBINUL) injection Intravenous, As Needed, Excess Secretions, Starting on Sade 10/18/17 at 0902 Given 10/18/2017 9:02 AM EST 0.6 mg lactated ringers infusion 100 mL/hr, Intravenous, Continuous, Starting on Sade 10/18/17 at 0645Indications:Hiatal hernia with GERD New Bag 10/18/2017 8:47 AM EST New Bag 10/18/2017 6:49 AM EST 100 mL/hr 100 mL/hr lidocaine (XYLOCAINE) 1 % injection As Needed, Starting on Sade 10/18/17 at 0748 Given 10/18/2017 7:48 AM EST 50 mg neostigmine (PROSTIGMINE) injection Intravenous, As Needed, Starting on Sade 10/18/17 at 0902 Given 10/18/2017 9:02 AM EST 4 mg ondansetron (ZOFRAN) injection Intravenous, As Needed, Nausea, Vomiting, Starting on Sade 10/18/17 at 0855 Given 10/18/2017 8:55 AM EST 4 mg propofol (DIPRIVAN) infusion 10 mg/mL 100 mL Continuous PRN, Starting on Sade 10/18/17 at 0752 New Bag 10/18/2017 7:52 AM EST 25 mcg/kg/min 15.65 mL/h r Propofol (DIPRIVAN) injection Intravenous, As Needed, Starting on Sade 10/18/17 at 0748 Given 10/18/2017 7:48 AM EST 200 mg rocuronium (ZEMURON) injection Intravenous, As Needed, Starting on Sade 10/18/17 at 0748 Given 10/18/2017 8:01 AM EST 45 mg Given 10/18/2017 7:48 AM EST 5 mg succinylcholine (ANECTINE) injection Intravenous, As Needed, Starting on Sade 10/18/17 at 0748 Given 10/18/2017 7:48 AM EST 140 mg documented in this encounter Care Teams Central Communications Specialist Relationship Specialty Start Date End Date Tye Medina MD [address] [facility] [address] [facility] [place] [id number] PCP - General Adolescent Medicine 10/09/17 documented as of this encounter
--- OUTSIDE RECORDS SUMMARY | 2024-08-20 11:10 | XMS_ITS | Clinical Summary ---
Author Organization [facility] Address [address] [place] [address] Care Team Providers Care Still Tender Name Role Phone Tye Medina MD Primary Care Provider [phone] Family History Medical History Relation Name Comments Cardiac disorder Mother Diabetes Mother Hypertension Mother Relation Name Status Comments Mother Social History Tobacco Use Types Packs/Day Years Used Date Smoking Tobacco: Never Sex and Gender Information Value Date Recorded [...] Mass Index 31.19 08/24/2016 2:41 PM EST Plan of Treatment Not on file Care Teams Still Tender Relationship Specialty Start Date End Date Tye Median MD [address] [place] [address] PCP - General 02/18/21
--- OUTSIDE RECORDS SUMMARY | 2024-08-20 11:10 | XMS_ITS | Encounter Summary ---
Author Organization Healthcare Address [address] [place] [address] Care Team Providers Care Supervisor Telephone Answering Service Name Role Phone Unavailable Primary Care Provider Unavailabl e Encounter Details Date Type Department Care Team (Late st Contact Info) Description 06/27/2013 1:06 PM EDT Hospital Encounter [facility] Inpatient [address] [place] [address] Keily Cervantes MD Social History Tobacco Use Types Packs/Day Years Used Date Smoking Tobacco: Never Assessed Sex and Gender Information Value Date Recorded Sex Assigned at Not on file Legal Sex Male 8:35 PM EDT Gender Identity Not on file Sexual Orientation Not on file documented as of this encounter Miscellaneous Notes * Discharge Summary - Maria Victoria Dwyer APRN, DNP - 06/27/2013 1:06 PM EDT Hospitalization: Admit Date:27-Jun-2013 Discharge Date:28-Jun-2013 Discharge Atttending PhysicianKeily Patten Admitting DiagnosisAcute myocardial infarction Reason for Hospitalization: - CC: pain with swollowing HPI: Pt is a 48 yo m with history of HTN, HLD, reportedly LH cath 2011 from outside which was unremarkable, presents with neck pain that seems to be associated with swallowing. He states he has had sharp neck pain that seems to radiate to his right anterior chest that usually starts with initiation of aswallow, has been going on for years, and is usually resolved by forced emesis. sometimes + NV. This morning he was eating breakfast and was unable to resolve the pain. No diaphoresis, exertional component, soa. The pain did not remit so he perused care at [facility]. Pain has been steadilyconstant since this AM. No hematemesis. While there, he was told he was difficult to get a reliableblood pressure via sphygmomanometry, and there was reportedly concerning EKG tracings, and he was transferred here for urgent [facility] cath. In the cath note it notes he was transferred under concern for STEMI, although there is no EKG from his presentation in documents. Unknown if any biomarker elevated at the original presenting facility. PMHX: s/p Cath 2011 at [facility], s/p stress test via primary care provider 2mo ago, both per reported unremarkable, no recorders avail HTN HLD CKD - unk cause per pt anxiety chronic low back pain GERD PSHX: none FAMILY HISTORY: Reports family history of the sugars (DM), father from ALS, no sudden or unexpected deaths, no cardiac < 50. MEDS: Lisinopril valium Simvastatin lortab meloxicam naldolol for migrane ALLERGIES: NKDA Discharge Diagnosis: Hospital Course: Hospital Course 1. Dysphagia / Chest pain -Complaints on presentation likely esphageal dysphagia. Exeptionally atypical presentation for cardiac chest pain and without evidence of coronary disease on [facility]. No increase in Troponin enzymes and no acute ischemia on EKG. No clear indication for ASA and may consider GERD/PUD. Antiplatelets and aspirin were deferred. [facility] IMPRESSION: 1. Normal coronary arteriogram. No epicardial coronary disease to explain the patient's presentation of inferior ST elevation, bradycardia or ongoing chest pain. 2. Left ventricular ejection fraction is borderline normal, visual estimate of 50-55% with no regional wall motion abnormalities. 3. Mildly elevated left ventricular end diastolic pressure at 20. 4. Successful Angioseal placement.. 5. Successful venous sheath placement left sewn into place until IV access obtained. Follow up with cardiology. Instructed to continue PPI. Follow up with Gastroenterology or family doctor as requested by patient 2. CKD - reports a history of chronic kidney disease, although CR is 1.10 here. 3. Chronic Headache -Tylenol PRN. 4. HTN - Normotensive while hospitalized. Patient reports he is taking lisinopril however does not know dosage. He will continue to monitor blood pressure and follow up with family doctor as needed. 4. Chronic back pain - Continue medications previously prescribed. 5 Anxiety - Continue medications previously prescribed. 6. Bradycardia - non symptomatic bradycardia. Follow up in EP clinic or with PCP if needed. Diagnostic and Procedural Events: - Left Heart Catheterization Physical Examination/ Objective Infrmationo/ Pertinent Findings: - - Subjective: Patient complaints: No complaints of dysphagia, no chest pain, no fever, no chills, no shortness ofair. He reports that he is hungry and wishes to leave. He would like to follow up with his family doctor. He had no dysphagia with eating. He reports his symptoms have worsened over the past year with regard to difficulty with pain midchest down to his abdomen related to diet. He will monitor his diet and was given dietary instructions prior to discharge. His family was present. He does not know the dosages of his medications. He will continue taking his PPI therapy and will follow up with his physician. The patient further does not know the dosages of his current medications. Attempts were made to contact his pharmacy [facility] but it was not open on the weekend. Review of Systems: GEN: No unexpected weight loss or gain. No fevers, chills night sweats. SKIN: No rashes. No lesions. HEENT: No diplopia or loss of vision. No hearing loss. No dysphagia or sore throat. No neck masses. CV: as above. Respiratory: No cough or hemoptysis. GI. No nausea, vomiting, diarrhea or constipation. No hematochezia. +heartburn + difficulty swallowing at times. : No urinary hesitancy, dysuria, or hematuria. MSK: no arthralgia or arthritis Heme: No bleeding gums, nose bleeds easy bruising or bleeding. Neuro: No stroke, TIA or seizure symptoms. Psych: No evidence of depression, or anxiety Objective: Physical examination: Physical examination: Gen: Well appearing, nondyspneic, speaks in full sentences SKIN: [place]. Warm. Dry. Right groin cath site with no hematoma, cdi dressing. HEENT: anicteric, moist mucous membranes Neck: No masses detected, ROM intact Lungs: Clear to auscultation with equal expansion bilaterally Heart: RRR, normal S1 and S2. No murmur or rub. No carotid bruit. No lower extremity edema. Normal pulses at radial and dp/pt. Abdomen: NT/ND, active bowel sounds MSK: No joint erythema or tenderness Neuro: CN II-XII intact. Motor 5/5 upper and lower extremities Psychological fully oriented. Normal mood and affect Vital Signs: VITALS (last 24h) [retrieved for TRINIDAD BELLO at 28 Jun 2013 16:20]: Tc: 36.3 Tmax: 36.6 @ Jun 03:33 Tf: 97.5 Tmax: 97.8 @ Jun 03:33 HR: 44 (40 - 80) BP: 118/72 (94/60 - 118/72) RR: 16 (12 - 16) SpO2: 96% (89% - 98%) I & O Summary [retrieved for TRINIDAD BELLO at 28 Jun 2013 16:20]: Description 8h shift 8h shift 8h shift ( 24h total ) Current shift Oral Fluid 0 240 40 ( 280 ) 0 Total IN: 0 240 40 ( 280 ) 0 Urine: Voided -0 -0 -200 ( -200 ) -250 Total OUT: -0 -0 -200 ( -200 ) -250 TOTAL NET: 0 240 -160 ( 80 ) -250 Laboratory evaluation: Reviewed electronically on [facility]. Relevant findings shown below LABS (last 48h) [retrieved for TRINIDAD BELLO at 28 Jun 2013 16:20]: 141 107 19 < 107 Ca: 8.8 P: 3.4 [06/28 @ 03:21] 4.1 26 1.26 WBC: 6.8 / Hb: 13.0 / Hct: 38.8 / Plt: 258 [06/28 @ 03:21] 142 108 17 < 101 Ca: 9.3 [06/27 @ 15:30] 4.4 26 1.10 WBC: 6.2 / Hb: 14.3 / Hct: 41.7 / Plt: 278 [06/27 @ 15:30] AST: 23 / ALT: 27 / AlkPhos: 77 / Bili: 1.1 / Prot: 6.8 / Alb: 3.8 / Lip: 12 [06/27 @ 15:30] Radiographic investigation: Personally visualized. Radiologist's interpretations also reviewed. Medications: Active Meds [retrieved for TRINIDAD BELLO at 28 Jun 2013 16:20]: CENTRAL NERVOUS SYSTEM AGENTS Acetaminophen: 325 MG Oral every 4 hours Acetaminophen 325 mg-HYDROcodone 10 m tablet Oral every 4 hours COAGULATION MODIFIERS Heparin Inj.: 5000 units SubCutaneous every 8 hours GASTROINTESTINAL AGENTS Pantoprazole Inj.: 40 MG IntraVenously once a day Diet: Follow the Healthy Heart Diet (See instructions in your patient education handouts). Work towards or maintain a healthy weight . Lifting: No lifting more than 5 lbs for 5(1)days. Activity: Activity: no stairs and do not put weight on right side(1). Special Activity Instructions: avoid strenuous activity for a week watch right groin site for bleeding, redness or drainage(1). Wound or Incision Care: Wash your wound (1)with mild soap and water once a day; pat dry; do not rub. Bathing: Shower any time; (1)keep wound or bandage dry. Avoid soaking your wound; (1)do NOT take a tub bath. Instructed patient to call if: Temperature is above 101. Skin around the wound: feels warm or hot to the touch (1). Wound smells bad, (1)is draining pus, bleeding, or coming open. You are throwing up (1)or have diarrhea for more than 24 hours. Medication Instructions: Take Medication exactly as instructed . Do not take any medications that have not been ordered for you. This means do not take other people's medicaiton, illegal drugs or substances, or even more aspirin than has been ordered. Follow Up Instructions: Follow up with: Your primary doctor as soon as possible for evaluation for GERD/reflux(1)in/on - Address/Phone Number:. Follow up with: You may follow up with cardiology at [phone] we will call you with an appointment(1)in/on - Address/Phone Number:. ATTESTATION: Attending Attestation: Dr. Ceron assessed and in agreement with plan of care. Attending Billing: I spent >30 minutes of patient care and instruction time in preparation for this discharge. Electronic Signatures: Maria Victoria Dwyer APRN (Nurse Practitioner) (Signed 01-Jul-13 17:30) Authored: HOSPITALIZATION, DISCHARGE DIAGNOSIS, HOSPITAL COURSE, DIAGNOSTIC AND PROCEDURAL EVENTS, PHYSICAL EXAMINATION, DISCHARGE INSTRUCTIONS, ATTESTATION Last Updated: 01-Jul-13 17:30 by Maria Victoria Dwyer APRN (Nurse Practitioner) References: 1. Data Referenced From Patient Discharge Instructions 06/28/2013 3:56 PM documented in this encounter Plan of Treatment Not on file documented as of this encounter Visit Diagnoses Not on filedocumented in this encounter
--- OUTSIDE RECORDS SUMMARY | 2024-08-20 11:10 | XMS_ITS | Encounter Summary ---
Author Organization [facility] Address [address] [place] [id number] Care Team Providers Care Audio Narrator Name Role Phone Tye Medina MD Primary Care Provider [phone] Encounter Details Date Type Department Care Team (Late st Contact Info) Description 01/31/2019 3:00 PM EDT Office Visit [facility] BARI[facility]RIC SUR[facility]ERY [address] [place] [address] Virgie Miramontes PA [address] [place], [place] [id number] Dysphagia, unspecified type (Primary Dx); Heartburn Social History Tobacco Use Types Packs/Day Years [...] Mass Index 29.84 01/31/2019 2:08 PM EDT documented in this encounter Progress Notes * Virgie Miramontes PA - 01/31/2019 3:00 PM EDT [facility] Bariatric Surgery [address] [facility] [phone] Patient Name: Timur Uribe. Date of : 1965 Date of Visit: 01/31/2019 Reason for Visit: dysphagia, reflux HPI: Timur Uribe is a 53 y.o. male s/p lap Eneida w/ paraHHR by [facility]DW on 10/18/17 JAMIE POD #7. Returns now saying issues w/ reflux have persisted, only slightly improved s/p Eneida. Continues on Protonix daily w/ only moderate relief. Has also had ongoing issues w/ dysphagia postoperatively, but worsening in the past 3 months. Feels like something is constantly caught in this throat w/ associated scratchy throat. Says the only thing that really has improved since having surgery was the coughing. c/o chronic cough prior, now only coughs some at night. Denies tobacco. Drinks beer on the weekends. No recent imaging. Past Medical History: Diagnosis Date ??? Anxiety ??? BPH (benign prostatic hyperplasia) ??? CKD (chronic kidney disease), stage III (CMS/HCC) ??? DDD (degenerative disc disease), lumbosacral ??? Degenerative disc disease, lumbar ??? Depression ??? GERD (gastroesophageal reflux disease) ??? Hiatal hernia ??? HLD (hyperlipidemia) ??? HTN (hypertension) ??? Obesity (BMI 30.0-34.9) ??? RLS (restless legs syndrome) ??? Seasonal allergies ??? Stomach ulcer ??? Wears prescription eyeglasses Past Surgical History: Procedure Laterality Date ??? COLONOSCOPY ??? ENEIDA FUNDOPLICATION N/A 10/18/2017 Procedure: ENEIDA FUNDOPLICATION LAPAROSCOPIC, HIATAL HERNIA REPAIR LAPAROSCOPIC; Surgeon: Franck Camargo MD; Location: [facility]; Service: ??? PACEMAKER IMPLANTATION 2017 ??? TUMOR REMOVAL 2014 Back Outpatient Medications Marked as Taking for the 01/31/19 encounter (Office Visit) with Virgie Miramontes PA Medication Sig Dispense Refill ??? aspirin 81 MG tablet Take 81 mg by mouth. ??? atorvastatin (LIPITOR) 40 MG tablet Take 40 mg by mouth Every Night. ??? cetirizine (zyrTEC) 10 MG tablet Take 10 mg by mouth Daily. ??? DULoxetine (CYMBALTA) 60 MG capsule Take 60 mg by mouth Daily. ??? ELIQUIS 5 MG tablet tablet ??? fluticasone (FLONASE) 50 MCG/ACT nasal spray 2 sprays into each nostril Daily. ??? furosemide (LASIX) 20 MG tablet ??? losartan (COZAAR) 100 MG tablet Take 100 mg by mouth Daily. ??? meloxicam (MOBIC) 15 MG tablet Take 15 mg by mouth Daily. ??? pantoprazole (PROTONIX) 40 MG EC tablet Take 40 mg by mouth Daily. ??? rOPINIRole (REQUIP) 2 MG tablet Take 2 mg by mouth Every Night. ??? tamsulosin (FLOMAX) 0.4 MG capsule 24 hr capsule 1 capsule Daily. ??? traZODone (DESYREL) 100 MG tablet Take 100 mg by mouth Every Night. No Known Allergies Social History Socioeconomic History ??? Marital status: Spouse name: Not on file ??? Number of children: Not on file ??? Years of education: Not on file ??? Highest education level: Not on file Tobacco Use ??? Smoking status: Former Smoker Last attempt to quit: 2000 Years since quittin.3 ??? Smokeless tobacco: Never Used Substance and Sexual Activity ??? Alcohol use: Yes Alcohol/week: 6.0 oz Types: 10 Cans of beer per week Comment: on the weekends, especially in the summer ??? Drug use: No ??? Sexual activity: Defer Vitals: 01/31/19 1408 BP: 116/80 Pulse: 85 Resp: 18 Temp: 97.3 ??F (36.3 ??C) SpO2: 98% Weight 99.8 kg (220 lb) Body mass index is 29.84 kg/m??. Physical Exam Constitutional: He appears well-developed and well-nourished. Cardiovascular: Normal rate and regular rhythm. Pulmonary/Chest: Effort normal. Abdominal: Soft. There is no tenderness. No hernia. Incisions well healed Musculoskeletal: Normal range of motion. Neurological: He is alert. Skin: Skin is warm and dry. Psychiatric: He has a normal mood and affect. Assessment: 53 y.o. male s/p lap Eneida w/ paraHHR by GDW on 10/18/17 ICD-10-CM ICD-9-CM 1. Dysphagia, unspecified type R13.10 787.20 2. Heartburn R12 787.1 Plan: UGI ordered to further evaluate. Additional recommendations to follow. documented in this encounter Plan of Treatment Not on file documented as of this encounter Visit Diagnoses Diagnosis Dysphagia, unspecified type- Primary Heartburn documented in this encounter Care Teams Audio Narrator Relationship Specialty Start Date End Date Tye Medina MD [facility] [address] [address] PCP - General Adolescent Medicine 10/09/17 documented as of this encounter
--- OUTSIDE RECORDS SUMMARY | 2024-08-20 11:10 | XMS_ITS | Encounter Summary ---
Author Organization [facility] Address [address] [place] [address] Care Team Providers Care Band Splicer Name Role Phone Tye Medina MD Primary Care Provider [phone] Reason for Visit * Auth/Cert Specialty Diagnoses / Procedures Referred By Dacia martin Referred To Contact Diagnoses Hiatal hernia with GERD Hiatal hernia with GERD [K21.9, K44.9] Procedures DIMA FUNDOPLICATION LAPAROSCOPIC, HIATAL HERNIA REPAIR LAPAROSCOPIC Referral ID Status Reason Start Date Expiration Date Visits Re quested Visits Authorized [id number] 1 1 Encounter Details Date Type Department Care Team (Latest Contact Info) Description 10/18/2017 6:01 AM EST - 10/19/2017 3:50 PM EST Hospital Encounter [address] [place] [address] Franck Camargo MD [address] [place] [address] Hiatal hernia with GERD Discharge Disposition: Home or Self Care Social History Tobacco Use Types Packs/Day Years [...] Sign Reading Time Taken Comments Blood Pressure 124/77 10/19/2017 11:53 AM EST Pulse 66 10/19/2017 11:53 AM EST Temperature 36.8 ??C (98.3 ??F) 10/19/2017 11:[address] Respiratory Rate 18 10/19/2017 4:36 AM EST Oxygen Saturation 95% 10/19/2017 11:53 AM EST Inhaled Oxygen Concentration - - Weight 107 kg (235 lb) 10/18/2017 12:00 PM EST Height 182.9 cm (6') 10/18/2017 12:00 PM EST Body Mass Index 31.87 10/18/2017 12:00 PM EST documented in this encounter Discharge Instructions * Attachments The following attachments cannot be sent through Care Everywhere. * HIATAL HERNIA (THAI) * GASTROESOPHAGEAL REFLUX DISEASE ADULT [id number] (THAI) * LAPAROSCOPIC DIMA FUNDOPLICATION CARE AFTER (THAI) documented in this encounter Medications at Time [...] With Meals. 08/21/2017 01/31/2019 vitamin D (ERGOCALCIFEROL) 43785 units capsule capsule Take 50,000 Units by [...] unremarkable with a white count of 7. 6/1/75 segs 16 lymphs 8 monocytes H&H of 13.4 and 41 Imp: doing okay Plan: Discharge home. Discharge instructions were discussed. See orders * Merissa Aldana RN - 10/19/2017 2:46 PM EST Discharge Planning Assessment Mariola Patient Name: Timur Uribe Today's Date: 10/19/2017 Admit Date: 10/18/2017 Discharge Needs Assessment 10/19/17 0204 Living Environment Lives With spouse Living Arrangements [...] Plan yes Additional Comments Patient lives in [facility] with spouse. He is independent with his ADLs and has no current needs for DME or home health - Goal is to return home when medically ready - following - aw [phone] Discharge Placement No information found Demographic Summary 10/19/17 1442 Referral Information Admission Type inpatient Referral Source admission list Reason For Consult discharge planning Record Reviewed history and physical;medical record Contact Information Permission Granted to Share Information With case management associatesignals intelligence analysis manager Physician Information Name Tye Medina Functional [...] Abuse None Patient Forms None Merissa Aldana, RN documented in this encounter H&P Notes * Franck Camargo MD - 10/18/2017 7:35 AM EST H&P reviewed. The patient was examined and there are no changes to the H&P. Source Note - Franck Camargo MD - 10/09/2017 4:00 PM EST [facility] Bariatric Surgery [address] [facility] [id number] Patient Name: Timur Uribe. Date of : 1965 Date of Visit: 10/09/2017 CC: ASHKAN, Hiatal hernia HPI: 52 yo disabled obese WM referred by Dr. Garza for evaluation of ASHKAN/HH not well controlledwith medical therapy, consider Dima fundoplication. Pt's mother w him for entire eval. Pt w long-standing ASHKAN sx's, chronic cough, no dysphagia. UGI Hair Mem 08/28/17 small HH, no ASHKAN demonstrated. Denies regurg. EGD a few weeks ago at [place], will review report. On Prilosec 20 mg daily, Zantac 150 mg po BID. Says EGD showed HH and ulcers. Told to stop some meds, can't recall which. Sayshas CKD III, one of reasons for disability 4 years ago, other being DDD. Prev worked for [employer]. 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 vitamin D (ERGOCALCIFEROL) 23163 units capsule capsule, Take 50,000 Units by [...] (28.35 ) Wt 108 kg (238 lb) AuI233% BMI 208.26 kg/m2 Physical Exam Constitutional: He [...] factors CAD - obesity, HTN, HLD. UGI [facility] shows HH w/o reflux. EGD Pardeep Carpenter MD 09/13/17 [facility] - moderate streaking gastritis, antral [...] but not limited to bleeding, infection, , FL, stroke, recurrent reflux and/or hiatal hernia, gas bloat, persistent dysphagia, bowel or organ injury, VTE/pulm embolism, etc as outlined in our long consent form and wishes to proceed with lap Dima Fundoplication and lap HHR. Franck Camargo MD documented in this encounter Nursing Notes * Fanny Ornelas, SOMMER - 10/19/2017 2:24 PM EST Problem: Patient [...] encounter OR Notes * Op Note - Franck Camargo MD - 10/18/2017 9:02 AM EST [...] Codes: * Paraesophageal hernia [K44.9] Procedure/CPT?? Codes: NM LAP, REPAIR PARAESOPHAGEAL HERNIA, INCL FUNDOPLASTY W/O MESH [16969] Procedure(s): DIMA FUNDOPLICATION LAPAROSCOPIC, HIATAL HERNIA REPAIR LAPAROSCOPIC Surgeon(s): Franck Camargo MD Anesthesia: General Staff: Aircraft Launch And Recovery Technician: Carmen Marin RN Scrub Person: Arianna Bautista Processing Operator: Violeta Bustamante Estimated Blood Loss: minimal Urine [...] - 10.80 10*3/mm3 10/19/2017 8:39 AM EST [facility] RBC 4.54 4.20 - 5.76 10*6/mm3 10/19/2017 8:39 AM [facility] Hemoglobin 13.4 13.1 - 17.5 g/dL 10/19/2017 8:39 AM [facility] Hematocrit 40.9 38.9 - 50.9 % 10/19/2017 8:39 AM [facility] MCV 90.1 80.0 - 99.0 fL 10/19/2017 8:39 AM [facility] MCH 29.5 27.0 - 31.0 pg 10/19/2017 8:39 AM [facility] MCHC 32.8 32.0 - 36.0 g/dL 10/19/2017 8:39 AM [facility] RDW 13.1 11.3 - 14.5 % 10/19/2017 8:39 AM [facility] RDW-SD 42.6 37.0 - 54.0 fl 10/19/2017 8:39 AM [facility] MPV 9.6 6.0 - 12.0 fL 10/19/2017 8:39 AM [facility] Platelets 259 150 - 450 10*3/mm3 10/19/2017 8:39 AM [facility] Neutrophil % 75.4(H) 41.0 - 71.0 % 10/19/2017 8:39 AM [facility] Lymphocyte % 16.2(L) 24.0 - 44.0 % 10/19/2017 8:39 AM [facility] Monocyte % 8.0 0.0 - 12.0 % 10/19/2017 8:39 AM [facility] Eosinophil % 0.0 0.0 - 3.0 % 10/19/2017 8:39 AM [facility] Basophil % 0.1 0.0 - 1.0 % 10/19/2017 8:39 AM [facility] Immature Grans % 0.3 0.0 - 0.6 % 10/19/2017 8:39 AM [facility] Neutrophils, Absolute 5.74 1.50 - 8.30 10*3/mm3 10/19/2017 8:39 AM [facility] Lymphocytes, Absolute 1.23 0.60 - 4.80 10*3/mm3 10/19/2017 8:39 AM [facility] Monocytes, Absolute 0.61 0.00 - 1.00 10*3/mm3 10/19/2017 8:39 AM [facility] Eosinophils, Absolute 0.00 0.00 - 0.30 10*3/mm3 10/19/2017 8:39 AM [facility] Basophils, Absolute 0.01 0.00 - 0.20 10*3/mm3 10/19/2017 8:39 AM [facility] Immature Grans, Absolute 0.02 0.00 - 0.03 10*3/mm3 10/19/2017 8:39 AM [facility] Blood 10/19/2017 7:31 AM EST 10/19/2017 8:34 AM EST us Franck Camargo MD LAB BLOOD ORDERABLES Final Result [facility]
[address] [place] [address], [place] [phone] * (ABNORMAL) Comprehensive Metabolic Panel (10/19/2017 7:31 AM EST) Glucose 131(H) 70 - 100 mg/dL 10/19/2017 8:58 AM EST [facility] BUN 23 9 - 23 mg/dL 10/19/2017 8:58 AM [facility] Creatinine 1.80(H) 0.60 - 1.30 mg/dL 10/19/2017 8:58 AM [facility] Sodium 136 132 - 146 mmol/L 10/19/2017 8:58 AM [facility] Potassium 4.3 3.5 - 5.5 mmol/L 10/19/2017 8:58 AM [facility] Chloride 103 99 - 109 mmol/L 10/19/2017 8:58 AM [facility] CO2 24.0 20.0 - 31.0 mmol/L 10/19/2017 8:58 AM [facility] Calcium 9.2 8.7 - 10.4 mg/dL 10/19/2017 8:58 AM [facility] Total Protein 7.3 5.7 - 8.2 g/dL 10/19/2017 8:58 AM [facility] Albumin 4.30 3.20 - 4.80 g/dL 10/19/2017 8:58 AM EST [facility] ALT (SGPT) 33 7 - 40 U/L 10/19/2017 8:58 AM [facility] AST (SGOT) 33 0 - 33 U/L 10/19/2017 8:58 AM [facility] Alkaline Phosphatase 121(H) 25 - 100 U/L 10/19/2017 8:58 AM [facility] Total Bilirubin 0.7 0.3 - 1.2 mg/dL 10/19/2017 8:58 AM EST [facility] eGFR Non Amer 40(L) >60 mL/min/1.7 3 10/19/2017 8:58 AM EST [facility] Globulin 3.0 gm/dL 10/19/2017 8:58 AM EST [facility] A/G Ratio 1.4(L) 1.5 - 2.5 g/dL 10/19/2017 8:58 AM EST [facility] BUN/Creatinine Ratio 12.8 7.0 - 25.0 10/19/2017 8:58 AM EST [facility] Anion Gap 9.0 3.0 - 11.0 mmol/L 10/19/2017 8:58 AM EST [facility] Blood 10/19/2017 7:31 AM EST 10/19/2017 8:31 AM EST [facility] - 10/19/2017 8:58 AM EST National Kid[employer] Guidelines Stage ? Description ?GFR 1 ? Normal or High ? 90+ 2 ? Mild decrease ?60-89 3 ? Moderate decrease ??30-59 4 ? Severe decrease ?15-29 5 ? Kidney failure ? <15 Franck Camargo MD LAB BLOOD ORDERABLES Final Result [facility]
[address] [place] [address], * Troponin (10/18/2017 11:05 AM EST) Troponin I <0.006 <=0.039 ng/mL 10/18/2017 11:43 AM EST [facility] Blood 10/18/2017 11:0 5 AM EST 10/18/2017 11:08 AM EST us Franck Camargo MD LAB BLOOD ORDERABLES Final Result [facility]
[address] [place] [id number], * ECG 12 Lead (10/18/2017 10:59 AM [...] AM Referred By: Confirmed By:JERED DARNELL MD us Franck Camargo MD ECG ORDERABLES Final Resu lt ECG documented in this encounter Visit Diagnoses Diagnosis Hiatal hernia with GERD- Primary Hiatal hernia with GERD documented in this encounter Administered Medications Inactive [...] Given 10/18/2017 9:51 PM EST 40 mg ceFAZolin in dextrose (ANCEF) IVPB solution 2 g 2 g, Intravenous, Administer over 30 Minutes, Every 8 Hours, First dose (after last reorder) on Sade 10/18/17 at 1600, For 2 doses, Indications: Surgical ProphylaxisIndications:Surgical Prophylaxis New Bag 10/18/2017 11:29 PM EST [...] Throat, Starting on Sade 10/18/17 at 0746, {BK} Given 10/19/2017 8:19 AM EST 2 sprays rOPINIRole (REQUIP) tablet 2 mg 2 mg, Oral, Nightly, First dose on Sade 10/18/17 at 2100 Given 10/18/2017 9:51 PM EST 2 mg simethicone (MYLICON) chewable tablet 80 mg 80 mg, Oral, 4 Times Daily PRN, Flatulence, Starting on Sade 10/18/17 at 0748 Given 10/18/2017 9:37 AM EST 80 mg sodium chloride 0.45 % with KCl 20 mEq/L infusion 125 mL/hr, Intravenous, Continuous, Starting on Sade 10/18/17 at 0830, Discontinue any other maintenance IVF's Currently Infusing 10/19/2017 6:44 AM EST 125 mL/hr 125 mL/hr Currently Infusing 10/19/2017 4:39 AM EST 125 mL/hr 125 m L/hr Currently Infusing 10/19/2017 2:33 AM EST 125 mL/hr 125 m L/hr sucralfate (CARAFATE) tablet 1 g 1 g, [...] mg (COMPLETED) 650 mg, Oral, Once, On Sun10/18/17 at 0645, For 1 dose, Do not [...] 40 mg, Oral, Nightly, First dose on Sun10/18/17 at 2100, Avoid grapefruit juice. 2150 (Given - Provider: Jovana Posadas RN) ceFAZolin [...] Posadas RN) 1000 (Given - Provider: Fanny Ornelas RN) tamsulosin (FLOMAX) 24 hr capsule 0.4 mg 0.4 mg, Oral, Daily, First dose on Sun10/19/17 at 0900, Swallow whole. Do not crush or chew. 0820 (Given - Provid er: Fanny Ornelas RN) traZODone (DESYREL) tablet 100 mg 100 mg, Oral, Nightly, First dose on Sade 10/18/17 at 2100, Take with food. 2151 (Given - Provider: Jovana Posadas RN) Continuous Medication Order 10/17/2017 10/18/2017 10/19/2017 lactated ringers infusion (CANCELED) 100 mL/hr, Intravenous, Continuous, Starting on Sade 10/18/17 at 0645 0649 (New Bag - Provider: Yesi Navarrete RN)0847 (New Bag - Provider: Terri Ca CRNA)0914 (Stopped - Provider: Terri Ca CRNA) sodium chloride 0.45 % with KCl 20 mEq/L infusion 125 mL/hr, Intravenous, Continuous, Starting on Sade 10/18/17 at 0830, Discontinue any other maintenance IVF's 1351 (New Bag - Provider: Ban Sam RN)2023 (Currently Infusing - Provider: Jovana Posadas RN)2248 (Currently Infusing - Provider: Jovana Posadas RN)2333 (New Bag - Provider: Jovana Posadas, SOMMER) 0233 (Currently Infusing - Provider: Jovana Posadas, SOMMER)0439 (Currently Infusing - Provider: Jovana Posadas, SOMMER)0644 (Currently Infusing - Provider: Jovana Posadas, SOMMER)0823 (Stopped - Provider: Fanny Ornelas RN - Comment: IV INFILTRATED) PRN Medication Order 10/17/2017 10/18/2017 10/19/2017 albuterol (PROVENTIL) nebulizer solution 0.5% 2.5 mg/0.5mL 2.5 mg, Nebulization, Every 4 Hours PRN, Shortness of Air, Starting on Sade 10/18/17 at 0746 bupivacaine-EPINEPHrine (MARCAINE w/EPI) injection (CANCELED) [...] CPOT 5-8 0941 (Given - Provider: Ban Tovar, SOMMER) HYDROmorphone (DILAUDID) tablet 2 mg 2 mg, [...] CPOT 5-8 1448 (Given - Provider: Ban Sam, SOMMER) labetalol (NORMODYNE,TRANDATE) injection 10 mg(Linked Group 1) [...] 1 dose 0637 (Given - Provider: Yesi Navarrete RN) LORazepam (ATIVAN) tablet 1 mg 1 mg, [...] Throat, Starting on Sade 10/18/17 at 0746, {[facility]} 0819 (Given - Provid er: Fanny Ornelas RN) promethazine (PHENERGAN) injection 12.5 mg 12.5 mg, [...] at 0748 0937 (Given - Provider: Ban Tovar, SOMMER) sodium chloride (NS) irrigation solution (CANCELED) As Needed, Starting on Sade 10/18/17 at 0834 0834 (Given - Provider: Carmen Marin RN - Comment: LESS THAN 500 ML) sterile water irrigation solution (CANCELED) As Needed, Starting on Sade 10/18/17 at 0720 0720 (Given - Provider: Carmen Marin, SOMMER - Comment: TO STERILE FIELD FOR POINT [...] metoclopramide. documented in this encounter Care Teams Band Splicer Relationship Specialty Start Date End Date Tye Medina MD [address] [facility] [address] [facility] [place] [id number] PCP - General Adolescent Medicine 10/09/17 documented as of this encounter
[2024-08-20 12:25] LABS: C-Reactive Protein 1.4 mg/L (0-4)
== END 2024-08-20 23:59 | disposition home or self-care (01) ==
LOC: LAB 11:08
PROVIDERS: PCP Internal Medicine Adolescent Medicine; Visit Provider Internal Medicine Pulmonary Disease
DX: J84.9 Interstitial pulmonary disease, unspecified (principal); R06.09 Other forms of dyspnea
CPT/HCPCS: 36415; 86140

== ENCOUNTER 2024-10-28 09:15 | Outpatient (CLI) | payer MEDICARE, SELFPAY ==
[2024-10-28 10:20] VITALS: PULSE 73; PULSE 75
[2024-10-28] MEDS: ALBUTEROL 0.083% 2.5 MG/3 ML NEB IH (10:20)
== END 2024-10-28 23:59 | disposition home or self-care (01) ==
LOC: RT 09:16
PROVIDERS: PCP Internal Medicine Adolescent Medicine; Visit Provider Internal Medicine Pulmonary Disease
DX: R06.09 Other forms of dyspnea (principal)
CPT/HCPCS: 94060; 94618; 94640; 94727; 94729; J7613

== ENCOUNTER 2024-10-28 12:55 | Outpatient (CLI) | payer MEDICARE, SELFPAY ==
[2024-10-29 14:16] LABS: Antinuclear Antibodies (ANA) Negative (Negative)
[2024-11-02 01:08] LABS: Rheumatoid Factor IGM < 7 U (<7)
== END 2024-10-28 23:59 | disposition home or self-care (01) ==
LOC: LAB 12:56
PROVIDERS: PCP Internal Medicine Adolescent Medicine; Visit Provider Internal Medicine Pulmonary Disease
DX: J84.9 Interstitial pulmonary disease, unspecified (principal)
CPT/HCPCS: 36415; 86038; 86431

== ENCOUNTER → 2025-08-20 13:20 | Outpatient (CLI) | payer MEDICARE, SELFPAY ==
--- OUTSIDE RECORDS SUMMARY | 2025-08-20 13:24 | XMS_ITS | Clinical Summary ---
Author Organization Healthcare Address [address] [place] [address] Care Team Providers Care Container Coordinator Name Role Phone Tye Medina MD Primary Care Provider [phone] Family History Medical History Relation Name Comments [...] of Treatment Not on file Care Teams Container Coordinator Relationship Specialty Start Date End Date Tye Medina MD [address] [place] [address] PCP - General 02/18/21
--- OUTSIDE RECORDS SUMMARY | 2025-08-20 13:24 | XMS_ITS | Clinical Summary ---
Author Organization [facility] Address [address] [place] [id number] Care Team Providers Care Supervisor Hard Candy Name Role Phone Tye Medina MD Primary Care Provider [phone] Allergies No known active allergies Medications atorvastatin [...] (10/10/2017): Added automatically from request for surgery [id number] Family History Medical History Relation Name Comments [...] 85 01/31/2019 2:08 PM EDT Temperature 36.3 C (97.3 F) 01/31/2019 2:08 PM EDT Respiratory Rate 18 01/31/2019 2:08 PM EDT Oxygen Saturation 98% 01/31/2019 2:08 PM EDT Inhaled Oxygen Concentration - - Weight 99.8 kg (220 lb) 01/31/2019 2:08 PM EDT Height 182.9 cm (6') 01/31/2019 2:08 PM EDT Body Mass Index 29.84 01/31/2019 2:08 PM EDT Plan of Treatment Health Maintenance Due Date Last Done Comments TDAP/TD VACCINES (1 - Tdap) 1982 COLOGUARD 2008 COLON CANCER SCREENING 5 YEAR SIGMOIDOSCOPY 2008 COLONOSCOPY [address] S[address]ENING [address] COLONOGRAPHY 2008 FECAL OCCULT BLOOD TEST 2008 FIT Testing (1 year) 2008 Pneumococcal Vaccine 50+ (1 of 1 - PCV) 2013 ZOSTER VACCINE (1 of 2) 2013 ANNUAL PHYSICAL 10/09/2017 HEPATITIS C SCREENING 10/09/2017 INFLUENZA VACCINE 05/08/2025 Insurance MEDICARE ADVANTAGE Advance Directives * Full Code (Latest Code Status on File) Date Activated Date Inactivated Comments 10/18/2017 7:48 AM 10/19/2017 6:51 PM Care Teams Supervisor Hard Candy Relationship Specialty Start Date End Date Tye Medina MD [address] [facility] [address] [place] [address] PCP - General Adolescent Medicine 10/09/17
== END ==
LOC: SL 13:21
PROVIDERS: Visit Provider Specialist
DX: G47.33 Obstructive sleep apnea (adult) (pediatric) (principal)